=== PATIENT | female | born 1985 | race Caucasian/White ===

== ENCOUNTER 2023-09-23 07:35 | Emergency (ER) | payer OTHER, SELFPAY ==
[2023-09-23 07:42] VITALS: BP 142/75; PULSE 78; RESP 18; TEMP 37.2; O2SAT 98
--- NOTE | 2023-09-23 07:50 | ED_ITS ---
HPI - General Adult General Chief complaint: Skin/Abscess/Foreign Body Stated complaint: THROAT PAIN Time Seen by Provider: 09/23/23 07:42 Source: patient Mode of arrival: walk-in Limitations: no limitations History of Present Illness HPI narrative: Patient has esophageal narrowing due to GERD. Last night she ate lettuce and immediately felt as if it was stuck in her esophagus - around mid chest. This occurred around 6pm and she went to [facility] ED last night. She received a GI cocktail but didn't feel any different. She continued to have the sensation throughout the might and into this morning. She has not had anything else to eat or drink since the GI cocktail. She came to our ED devaughn evaluated. Related Data Allergies Allergy/AdvReac Type Severity Reaction Status Date / Time lamotrigine Allergy Unknown Verified 09/23/23 07:41 oxcarbazepine Allergy Unknown Verified 09/23/23 07:41 [From Trileptal] Exam Narrative Exam Narrative: Nurses notes and vital signs reviewed and patient is not hypoxic. afebrile General: Well-appearing and in no apparent distress. Skin: Warm, dry, no pallor noted. Neck: Supple, non-tender. Eye: Pupils are equal, round and EOMI. No scleral icterus. Ears, Nose, Mouth, and Throat: Oral mucosa is moist. Airway patient. Clear visualization of the tonsillar pillars and posterior pharynx - no foreign material noted. Normal swallowing mechanics. Cardiovascular: Regular Rate and Rhythm without murmur, gallop or rub. Respiratory: No accessory muscle use or respiratory distress. Lungs are clear to auscultation, no wheezing, rales or rhonchi Neurological: A&O x4. No cranial nerve dysfunction observed. No truncal ataxia. Moves all extremities. Sensation intact. Psychiatric: Cooperative and interactive. Normal mood and affect. Constitutional Vital Signs, click to edit/add: Last Vital Signs Temp 98.9 F 09/23/23 07:42 Pulse 78 09/23/23 07:42 Resp 18 09/23/23 07:42 BP 142/75 H 09/23/23 07:42 Pulse Ox 98 09/23/23 07:42 O2 Del Method Room Air 09/23/23 07:42 Course Vital Signs Vital signs: Vital Signs Temperature 98.9 F 09/23/23 07:42 Pulse Rate 78 09/23/23 07:42 Respiratory Rate 18 09/23/23 07:42 Blood Pressure 142/75 H 09/23/23 07:42 Pulse Oximetry 98 09/23/23 07:42 Oxygen Delivery Method Room Air 09/23/23 07:42 Temperature 98.9 F 09/23/23 07:42 Pulse Rate 78 09/23/23 07:42 Respiratory Rate 18 09/23/23 07:42 Blood Pressure 142/75 H 09/23/23 07:42 Pulse Oximetry 98 09/23/23 07:42 Oxygen Delivery Method Room Air 09/23/23 07:42 Medical Decision Making MDM Narrative Medical decision making narrative: Patient has achalasia. She has the sensation of esophageal foreign body after eating her first bite of salad. She is controlling her secretions, airway is patent and no foreign matter in the posterior pharynx. She already had a GI cocktail last night without any change in sensation. She was given reassurance that the lettuce will be broken down by the body's natural secretions in the esophagus. She was instructed to eat and drink as she normally does as that will help to move the lettuce through the esophagus. She was discharged home. Discharge Plan Discharge Stand Alone Forms: Portal Instructions Chief Complaint: Skin/Abscess/Foreign Body Clinical Impression: Dysphagia Patient Disposition: Home, Self-Care Time of Disposition Decision: 07:55 Print Language: French Instructions: Dysphagia (ED)
== END 2023-09-23 08:00 | disposition home or self-care (01) ==
LOC: ER 08:03
PROVIDERS: Emergency Provider Emergency Medicine; PCP Family Medicine
DX: R13.10 Dysphagia, unspecified (principal)
CPT/HCPCS: 99281

== ENCOUNTER 2024-04-17 19:00 | Emergency (ER) | payer OTHER, SELFPAY ==
[2024-04-17 19:08] VITALS: BP 132/92; PULSE 82; TEMP 36.8; O2SAT 97; BMI 31.1
[2024-04-17 20:00] LABS: Bilirubin Urine SMALL (NEGATIVE); Blood Urine NEGATIVE (NEGATIVE); Clarity Urine CLEAR (CLEAR); Color Urine YELLOW (YELLOW); Glucose Urine UA NEGATIVE (NEGATIVE); Ketones Urine 40 mg/dL (NEGATIVE); Leukocyte Esterase Urine NEGATIVE (NEGATIVE); Nitrite Urine NEGATIVE (NEGATIVE); Protein Urine NEGATIVE (NEG/TRACE); pH Urine 6.5 (5.0-9.0)
[2024-04-17 20:03] LABS: HCG Qualitative Urine* NEGATIVE (NEGATIVE); Internal Control Within Normal Limits; Urine Microscopic Indicated NO
--- NOTE | 2024-04-17 20:44 | CT_ITS ---
[address] [address] Patient Name: TRAN PACE MRN: [id number] date: 1985 Sex: F Assigned Patient Location: ER Current Patient Location: ER Accession/Order Number: [id number] Exam Date: 04/17/2024 21:01 Report Date: 04/17/2024 22:11 At the request of: YOUNG YOON Procedure: CT abdomen pelvis wo con EXAMINATION:CT abdomen pelvis wo con INDICATION:Low abd pain, right flank pain COMPARISON:None TECHNIQUE:Multiple thin section transaxial slices were acquired through the abdomen and pelvis without intravenous contrast. Coronal and sagittal reconstructed images were reviewed. Oral contrastWas not administered. FINDINGS: LOWER CHEST: There is a small to moderate hiatal hernia. LIVER: The liver is unremarkable. GALLBLADDER AND BILIARY SYSTEM: No obvious ductal dilation. No calcified stones. SPLEEN: The spleen is unremarkable. PANCREAS: The pancreas is unremarkable. ADRENAL GLANDS: The adrenal glands are unremarkable. KIDNEYS AND URETERS: There is no hydronephrosis of the kidneys.There are no definitive obstructing urologic calcifications in the ureters. Nonobstructive bilateral intrarenal calculi are present. VASCULATURE: Vascularity is unremarkable. PERITONEUM/RETROPERITONEUM: There is a trace amount of free fluid in the pelvis. LYMPH NODES: No suspicious lymphadenopathy. 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 The cecum and appendix are present in the left lower quadrant anteriorly. The appendix is not inflamed. No acute inflammatory process is associated with the bowel.There is no bowel obstruction. BLADDER: The urinary bladder is unremarkable. REPRODUCTIVE SYSTEM: Reproductive system is unremarkable. BODY WALL: There is a small fat-containing umbilical hernia. 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 CT/CT abdomen pelvis wo con IMPRESSION: 1. No acute inflammatory process or obstructive uropathy. There are nonobstructive bilateral intrarenal calculi. 2. 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 3. Small to moderate hiatal hernia. Electronically authenticated by: ANABELLA TILLMAN Date: 04/17/2024 22:11
--- NOTE | 2024-04-17 20:45 | ED_ITS ---
Documented by User: Rosalie Eboni 04/17/24 21:53 HPI HPI - General Adult General Chief complaint: Urogenital-Female Stated complaint: BLEEDING W/ URINATION Time Seen by Provider: 04/17/24 19:45 History of Present Illness HPI narrative: 38 year old female presents to the ED for suprapubic, right abdomen/flank pain. Onset was last night. Reports three episodes of hematuria. Denies fever, chills, N/V/D, dysuria. She has had cough, sinus congestion/drainage; states she is not here for that today. Related Data Allergies Allergy/AdvReac Type Severity Reaction Status Date / Time lamotrigine Allergy Unknown Unknown Verified 04/17/24 19:11 oxcarbazepine (From Allergy Unknown Unknown Verified 04/17/24 19:11 Trileptal) Opioid HPI Opioid Management Most Recent Opioid Data: No Data to Display Review of Systems ROS Constitutional Denies: fever or chills Cardiovascular Denies: chest pain Respiratory Denies: shortness of breath Gastrointestinal Reports: abdominal pain; Denies: nausea, vomiting or diarrhea Genitourinary Reports: blood in urine; Denies: painful urination, urinary frequency or urinary urgency Musculoskeletal Reports: back pain; Denies: neck pain Integumentary/Breast Denies: rash Neurological Denies: headache Exam Constitutional Vital Signs, click to edit/add: Last Vital Signs Temp 98.2 F 04/17/24 19:08 Pulse 82 04/17/24 19:08 Resp 18 04/17/24 19:08 BP 132/92 H 04/17/24 19:08 Pulse Ox 97 04/17/24 19:08 O2 Del Method Room Air 04/17/24 19:08 Common normals: no apparent distress and oriented x3 General appearance: cooperative Eye Common normals: conjunctivae normal and no scleral icterus Neck & C-Spine Common normals: supple Chest Chest: symmetrical chest wall rise Respiratory Common normals: normal respiratory effort Cardio Common normals: regular rate and regular rhythm GI Common normals: Normal to inspection, nondistended, normoactive bowel sounds present and soft to palpation Palpation: tender Details: suprapubic Back & Pelvis Common normals: no CVA tenderness Neuro Common normals: oriented x3 Sensorium/orientation: awake and alert Speech: speech normal Course Vital Signs Vital signs: Vital Signs Temperature 98.2 F 10/14/24 19:08 Pulse Rate 82 04/17/24 19:08 Respiratory Rate 18 04/17/24 19:08 Blood Pressure 132/92 H 04/17/24 19:08 Pulse Oximetry 97 04/17/24 19:08 Oxygen Delivery Method Room Air 04/17/24 19:08 Temperature 98.2 F 04/17/24 19:08 Pulse Rate 82 04/17/24 19:08 Respiratory Rate 18 04/17/24 19:08 Blood Pressure 132/92 H 04/17/24 19:08 Pulse Oximetry 97 04/17/24 19:08 Oxygen Delivery Method Room Air 04/17/24 19:08 Medical Decision Making MDM Narrative Medical decision making narrative: Urinalysis was negative for blood, infection. CT scan and BMP were pending. Care was resumed to Dr. Pickett. See his dictation for further evaluation and emerald atment. Medical Records Medical records reviewed: Yes I reviewed the patient's medical records Lab Data Lab results reviewed: Yes I reviewed the patient's lab results Labs: Lab Results 04/17/24 04/17/24 Range/Units 19:55 21:00 WBC 7.3 (4.0-11.0) 10^3/uL RBC 4.47 (4.20-5.40) 10^6/uL Hgb 14.4 (12.0-16.0) g/dL Hct 42.6 (36.0-48.0) % MCV 95.3 (81.0-99.0) fL MCH 32.2 (26.7-34.0) pg MCHC 33.8 (29.9-35.2) g/dL RDW 11.8 (11.0-15.0) % Plt Count 259 (150-450) 10^3/uL MPV 10.5 (9.5-13.5) fL Neut % (Auto) 75.3 H (43.0-75.0) % Lymph % (Auto) 13.3 L (20.5-60.0) % [place] % (Auto) 9.3 (1.7-12.0) % Eos % (Auto) 1.5 (0.9-7.0) % Baso % (Auto) 0.3 (0.2-2.0) % Neut # (Auto) 5.5 (1.4-6.5) 10^3/uL Lymph # (Auto) 1.0 L (1.2-3.8) 10^3/uL [place] # (Auto) 0.7 (0.3-0.8) 10^3/uL Eos # (Auto) 0.1 (0.0-0.7) 10^3/uL Baso # (Auto) 0.0 (0.0-0.1) 10^3/uL Abs Immat Gran (auto) 0.02 (0.00-0.03) 10^3/uL Imm/Tot Granulo (auto) 0.3 (0.0-0.5) % Sodium 141 (136-145) mmol/L Potassium 3.7 (3.5-5.1) mmol/L Chloride 104 (98-107) mmol/L Carbon Dioxide 27.6 (21.0-32.0) mmol/L Anion Gap 13.1 BUN 5.0 L (7.0-18.0) mg/dL Creatinine 1.10 H (0.55-1.02) mg/dL Est GFR ( Amer) >60 (>=60 mL/min/1.73m^2) Est GFR (Non-Af Amer) 56 L (>=60 mL/min/1.73m^2) BUN/Creatinine Ratio 4.5 Glucose 89 (74-106) mg/dL Calcium 9.6 (8.5-10.1) mg/dL Total Bilirubin 0.5 (0.2-1.0) mg/dL AST 15 (15-37) U/L ALT 17 (14-59) U/L Alkaline Phosphatase 81 (46-116) U/L Total Protein 7.7 (6.4-8.2) g/dL Albumin 3.7 (3.4-5.0) g/dL Globulin 4.0 g/dL Albumin/Globulin Ratio 0.9 Urine Color Yellow (YELLOW) Urine Clarity Clear (CLEAR) Urine pH 6.5 (5.0-9.0) Ur Specific [place] 1.020 (1.005-1.025) Urine Protein Negative (NEG/TRACE) mg/dL Urine Glucose (UA) Negative (NEGATIVE) mg/dL Urine Ketones 40 A (NEGATIVE) mg/dL Urine Occult Blood Negative (NEGATIVE) Urine Nitrite Negative (NEGATIVE) Urine Bilirubin Small A (NEGATIVE) Urine Urobilinogen 1.0 (0.2-1.0) EU/dL Ur Leukocyte Esterase Negative (NEGATIVE) Urine HCG, Qual Negative (NEGATIVE) Imaging Data CT scan - abdomen: Radiologist's impression: ITS Impressions Abdomen/Pelvis CT 04/17/24 20:44 IMPRESSION: 1. No acute inflammatory process or obstructive uropathy. There are nonobstructive bilateral intrarenal calculi. 2. 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 3. Small to moderate hiatal hernia. Electronically authenticated by: ANABELLA TILLMAN Date: 04/17/2024 22:11 Discharge Plan Discharge Chief Complaint: Urogenital-Female Clinical Impression: Abdominal pain, Hematuria Patient Disposition: Home, Self-Care Print Language: Faroese Instructions: Hematuria (ED) Additional Instructions: follow up with your family doctor this week for recheck Referrals: ANSON LYNN [Primary Care Provider] - 1 week Documented by User: Jonah Pickett MD 04/17/24 22:45 HPI HPI - General Adult General Chief complaint: Urogenital-Female Stated complaint: BLEEDING W/ URINATION Time Seen by Provider: 04/17/24 19:45 Related Data Allergies Allergy/AdvReac Type Severity Reaction Status Date / Time lamotrigine Allergy Unknown Unknown Verified 04/17/24 19:11 oxcarbazepine (From Allergy Unknown Unknown Verified 04/17/24 19:11 Trileptal) Opioid HPI Opioid Management Most Recent Opioid Data: No Data to Display Exam Constitutional Vital Signs, click to edit/add: Last Vital Signs Temp 98.2 F 04/17/24 19:08 Pulse 82 04/17/24 19:08 Resp 18 04/17/24 19:08 BP 132/92 H 04/17/24 19:08 Pulse Ox 97 04/17/24 19:08 O2 Del Method Room Air 04/17/24 19:08 Course Vital Signs Vital signs: Vital Signs Temperature 98.2 F 04/17/24 19:08 Pulse Rate 82 04/17/24 19:08 Respiratory Rate 18 04/17/24 19:08 Blood Pressure 132/92 H 04/17/24 19:08 Pulse Oximetry 97 04/17/24 19:08 Oxygen Delivery Method Room Air 04/17/24 19:08 Temperature 98.2 F 04/17/24 19:08 Pulse Rate 82 04/17/24 19:08 Respiratory Rate 18 04/17/24 19:08 Blood Pressure 132/92 H 04/17/24 19:08 Pulse Oximetry 97 04/17/24 19:08 Oxygen Delivery Method Room Air 04/17/24 19:08 Medical Decision Making MDM Narrative Medical decision making narrative: Urinalysis was negative for blood, infection. CT scan and BMP were pending. Care was resumed to Dr. Pickett. See his dictation for further evaluation and treatment. care transitioned at end of PA shift. Patient presented complaining of hematuria. Workup unremarkable . Neg CT and urine without hematuria. Patient discharged and advised to follow up with her doctor Lab Data Labs: Lab Results 04/17/24 04/17/24 Range/Units 19:55 21:00 WBC 7.3 (4.0-11.0) 10^3/uL RBC 4.47 (4.20-5.40) 10^6/uL Hgb 14.4 (12.0-16.0) g/dL Hct 42.6 (36.0-48.0) % MCV 95.3 (81.0-99.0) fL MCH 32.2 (26.7-34.0) pg MCHC 33.8 (29.9-35.2) g/dL RDW 11.8 (11.0-15.0) % Plt Count 259 (150-450) 10^3/uL MPV 10.5 (9.5-13.5) fL Neut % (Auto) 75.3 H (43.0-75.0) % Lymph % (Auto) 13.3 L (20.5-60.0) % [place] % (Auto) 9.3 (1.7-12.0) % Eos % (Auto) 1.5 (0.9-7.0) % Baso % (Auto) 0.3 (0.2-2.0) % Neut # (Auto) 5.5 (1.4-6.5) 10^3/uL Lymph # (Auto) 1.0 L (1.2-3.8) 10^3/uL [place] # (Auto) 0.7 (0.3-0.8) 10^3/uL Eos # (Auto) 0.1 (0.0-0.7) 10^3/uL Baso # (Auto) 0.0 (0.0-0.1) 10^3/uL Abs Immat Gran (auto) 0.02 (0.00-0.03) 10^3/uL Imm/Tot Granulo (auto) 0.3 (0.0-0.5) % Sodium 141 (136-145) mmol/L Potassium 3.7 (3.5-5.1) mmol/L Chloride 104 (98-107) mmol/L Carbon Dioxide 27.6 (21.0-32.0) mmol/L Anion Gap 13.1 BUN 5.0 L (7.0-18.0) mg/dL Creatinine 1.10 H (0.55-1.02) mg/dL Est GFR ( Amer) >60 (>=60 mL/min/1.73m^2) Est GFR (Non-Af Amer) 56 L (>=60 mL/min/1.73m^2) BUN/Creatinine Ratio 4.5 Glucose 89 (74-106) mg/dL Calcium 9.6 (8.5-10.1) mg/dL Total Bilirubin 0.5 (0.2-1.0) mg/dL AST 15 (15-37) U/L ALT 17 (14-59) U/L Alkaline Phosphatase 81 (46-116) U/L Total Protein 7.7 (6.4-8.2) g/dL Albumin 3.7 (3.4-5.0) g/dL Globulin 4.0 g/dL Albumin/Globulin Ratio 0.9 Urine Color Yellow (YELLOW) Urine Clarity Clear (CLEAR) Urine pH 6.5 (5.0-9.0) Ur Specific [place] 1.020 (1.005-1.025) Urine Protein Negative (NEG/TRACE) mg/dL Urine Glucose (UA) Negative (NEGATIVE) mg/dL Urine Ketones 40 A (NEGATIVE) mg/dL Urine Occult Blood Negative (NEGATIVE) Urine Nitrite Negative (NEGATIVE) Urine Bilirubin Small A (NEGATIVE) Urine Urobilinogen 1.0 (0.2-1.0) EU/dL Ur Leukocyte Esterase Negative (NEGATIVE) Urine HCG, Qual Negative (NEGATIVE) Imaging Data CT scan - abdomen: Radiologist's impression: ITS Impressions Abdomen/Pelvis CT 04/17/24 20:44
[2024-04-17 21:05] LABS: Basophils Percent Auto 0.3 % (0.2-2.0); Eosinophils Absolute Auto 0.1 10^3/uL (0.0-0.7); Eosinophils Percent Auto 1.5 % (0.9-7.0); Hematocrit 42.6 % (36.0-48.0); Hemoglobin 14.4 g/dL (12.0-16.0); Immature Granulocytes Abs Auto 0.02 10^3/uL (0.00-0.03); Immature Granulocytes Pct Auto 0.3 % (0.0-0.5); Lymphocytes Percent Auto 13.3 % (20.5-60.0); Mean Corpuscular HGB Conc 33.8 g/dL (29.9-35.2); Mean Corpuscular Hemoglobin 32.2 pg (26.7-34.0); Mean Corpuscular Volume 95.3 fL (81.0-99.0); Mean Platelet Volume 10.5 fL (9.5-13.5); Monocytes Absolute Auto 0.7 10^3/uL (0.3-0.8); Monocytes Percent Auto 9.3 % (1.7-12.0); Neutrophils Absolute Auto 5.5 10^3/uL (1.4-6.5); Neutrophils Percent Auto 75.3 % (43.0-75.0); Platelet Count 259 10^3/uL (150-450); Red Blood Count 4.47 10^6/uL (4.20-5.40); Red Cell Distribution Width 11.8 % (11.0-15.0); White Blood Count 7.3 10^3/uL (4.0-11.0)
[2024-04-17] MEDS: 0.9 % SODIUM CHLORIDE 1,000 ML 1000 ML IV (21:07)
[2024-04-17 21:22] LABS: Alanine Aminotransferase 17 U/L (14-59); Albumin Globulin Ratio 0.9; Albumin Level 3.7 g/dL (3.4-5.0); Alkaline Phosphatase 81 U/L (46-116); Anion Gap 13.1; Aspartate Amino Transferase 15 U/L (15-37); BUN Creatinine Ratio 4.5; Bilirubin Total 0.5 mg/dL (0.2-1.0); Calcium 9.6 mg/dL (8.5-10.1); Carbon Dioxide 27.6 mmol/L (21.0-32.0); Chloride 104 mmol/L (98-107); Estimated GFR (African America >60 (>=60 mL/min/1.73m^2); Estimated GFR (Non-African Ame 56 (>=60 mL/min/1.73m^2); Glucose 89 mg/dL (74-106); Potassium 3.7 mmol/L (3.5-5.1); Sodium 141 mmol/L (136-145); Total Protein 7.7 g/dL (6.4-8.2)
== END 2024-04-17 22:49 | disposition home or self-care (01) ==
PROVIDERS: Nurse Practitioner Family; Emergency Provider Internal Medicine; PCP Family Medicine
DX: R10.9 Unspecified abdominal pain (principal); R31.9 Hematuria, unspecified
CPT/HCPCS: 36415; 74176; 80053; 81003; 84703; 85025; 99285

== ENCOUNTER 2024-09-05 11:09 | Emergency (ER) | payer OTHER, SELFPAY ==
--- OUTSIDE RECORDS SUMMARY | 2024-09-05 11:20 | XMS_ITS | CCD ---
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 Name Role Phone PHYSICIAN, DEFAULT Unavailable Unavailable PHYSICIAN, DEFAULT Unavailable Unavailable TREMAINE MULLER Unavailable Unavailable PAL, CHAYANIKA Unavailable Unavailable PAL, CHAYANIKA Unavailable Unavailable PAL, CHAYANIKA Unavailable Unavailable PAL, CHAYANIKA Unavailable Unavailable SPENCER VELASQUEZ Admitting Unavailable SPENCER VELASQUEZ Attending Unavailable REQUEST, NONE LISTED Primary Care Unavailable SPENCER VELAQSUEZ Consulting Unavailable PABLITO PATEL Consulting Unavailable GEOVANY BAGLEY Consulting Unavailable GEOVANY BAGLEY Admitting Unavailable GEOVANY BAGLEY Attending Unavailable [facility] Primary Care Unava ilable Arturo Figueroa Unavailable MD Richard Lopez Attending Provider DO Philly Calderon Primary Care Provider Richard Lopez Admitting Unavailable Richard Lopez Attending Unavailable Philly Calderon Primary Care Unavailable ANDERSON RICHMOND Attending Unavailable ANSON DOMÍNGUEZ Referring Unavailable ANSON DOMÍNGUEZ Primary Care Unavailable VU, DONYA-IVON Referring Unavailable DEFANSON GILMORE Primary Care Unavailable VU, DONYA-IVON Attending Unavailable ANSON DOMÍNGUEZ Referring Unavailable ANSON DOMÍNGUEZ Primary Care Unavailable Anson Domínguez MD Primary Care Provider [phone] Anson Domínguez MD Primary Care Provider [phone] ANSON DOMÍNGUEZ Attending Unavailable ANSON DOMÍNGUEZ Referring Unavailable ANSON DOMÍNGUEZ Primary Care Unavailable ANSON DOMÍNGUEZ Attending Unavailable ANSON DOMÍNGUEZ Referring Unavailable ANSON DOMÍNGUEZ Primary Care Unavailable ANSON DOMÍNGUEZ Attending Unavailable DEFRANCE, ANSON T Referring Unavailable DEFRANCE, ANSON T Primary Care Unavailable DEFRANCE, ANSON T Attending Unavailable DEFRANCE, ANSON T Referring Unavailable DEFRANCE, ANSON T Primary Care Unavailable DEFRANCE, ANSON T Attending Unavailable DEFRANCE, ANSON T Referring Unavailable DEFRANCE, ANSON T Primary Care Unavailable DEFRANCE, ANSON T Attending Unavailable DEFRANCE, ANSON T Referring Unavailable DEFRANCE, ANSON T Primary Care Unavailable ELSA RANDLEIVON Attending Unavailable PHILYL CALDERON Referring Unavailable DEFRANCE, ANSON T Primary Care Unavailable MERCY WEISS Attending Unavailable DEFRANCE, ANSON T Referring Unavailable DEFRANCE, ANSON T Primary Care Unavailable DEFRANCE, ANSON T Attending Unavailable DEFRANCE, ANSON T Referring Unavailable DEFRANCE, ANSON T Primary Care Unavailable ANNA FALCON Attending Unavailable DEFRANCE, ANSON T Referring Unavailable DEFRANCE, ANSON T Primary Care Unavailable LAURENDOREEN Attending Unavailable RUSHER, LAURIE Murcia Attending Unavailable DEFRANCE, ANSON T Referring Unavailable RUSHER, LAURIE Murcia Attending Unavailable RUSHER, LAURIE Murcia Attending Unavailable LAKESHA ABERNATHY Attending Unavailable JUAN MIGUEL ACOSTA Attending Unavailable LAKESHA ABERNATHY Referring Unavailable MICHELALAKESHA Referring Unavailable COYMIROSALIE Murcia Attending Unavailable RIRI ACEVEDO Attending Unavailable ACEVEDO, RIRI Attending Unavailable FRANCISCO J PORTILLO Attending Unavailable ACEVEDORIRI ARREAGA Referring Unavailable RAFFAELE AGUERO Attending Unavailable RAFFAELE AGUERO Referring Unavailable DEFRANCE, ANSON T Primary Care Unavailable DEFRANCE, ANSON T Primary Care Unavailable MADISON VEE Attending Unavailable VEE, MADISON Attending Unavailable VEEMADISON Referring Unavailable DEFRANCE, ANSON T Primary Care Unavailable DEFRANCE, ANSON T Primary Care Unavailable DEFRANCE, ANSON T Referring Unavailable DEFRANCE, ANSON T Primary Care Unavailable DEFRANCE, ANSON T Primary Care Unavailable JORGE L HURD Attending Unavailable JORGE L HURD Attending Unavailable JORGE L HURD Referring Unavailable DEFRANCE, ANSON T Primary Care Unavailable DEFRANCE, ANSON T Primary Care Unavailable JUAN MIGUEL JONES Attending UnavailDERRICK Berg Attending Unavailable DEFRANCE, ANSON T Primary Care Unavailable RAFFAELE AGUERO Referring Unavailable DEFRANCE, ANSON T Primary Care Unavailable DEFRANCE, ANSON T Primary Care Unavailable ANDERSON RICHMOND Referring Unavailable DEFRANCE, ANSON T Primary Care Unavailable ACEVEDORIRI ARREAGA Referring Unavailable DEFRANCE, ANSON T Primary Care Unavailable DEFRANCEANSON Referring Unavailable DEFRANCEANSON Primary Care Unavailable RAFFAELE AGUERO Referring Unavailable DEFRANCEANSON Primary Care Unavailable DEFRANCEANSON Primary Care Unavailable ADAM OLVERA Attending Unavailable DEFRANCEANSON Primary Care Unavailable Allergies Allergy Classification Reported Allergen(s) Allergy Type Date of Onset Reaction(s) Facility (7 sources) lamoTRIgine; Translations: [LAMOTRIGINE] Drug Allergy 1 Unknown, [facility] (7 sources) OXcarbazepine; Translations: [OXCARBAZEPINE] Drug Allergy 1 Unknown, [facility] (1 source) lamoTRIgine Drug Allergy 3 [facility] (1 source) OXcarbazepine Drug Allergy 3 [facility] (15 sources) Lamotrigine Propensity to adverse reactions 4 Rash [facility] (15 sources) Oxcarbazepine Propensity to adverse reactions 4 Rash [facility] (12 sources) Amitriptyline; Translations: [AMITRIPTYLINE] Drug Allergy 4 [facility] Medications Current Medications Medication Drug Class(es) Dates Sig (Normalized) Sig (Original) acyclovir 400 mg oral tablet (18 sources) Herpesvirus Nucleoside Analog DNA Polymerase Inhibitor, Herpes Simplex Virus Nucleoside Analog DNA Polymerase Inhibitor, Herpes Zoster Virus Nucleoside Analog DNA Polymerase Inhibitor Start: 10-28-2023 take 1 tablet by mouth in the morning acyclovir (Zovirax) 400 MG tablet Take 400 mg by mouth in the morning and 400 mg before bedtime. 10/28/2023 Active Start: 04-19-2023 take 400 mg by mouth once leigha y Acyclovir Active 400 MG PO Daily April 19, 2023 12:00am take 1 tablet by phylicia th every twelve hours Acyclovir 400 MG 1 tablet Orally Twice a day Active [id number] 200 actuat albuterol 0.09 mg/actuat metered dose inhaler (15 sources) beta2-Adrenergic Agonist Start: 10-28-2023 take 1 puff(s) by inhalation three times daily as needed for wheezing albuterol HFA 90 mcg/act inhaler Inhale 1 puff 3 (three) times a day as needed for wheezing or shortness of breath 10/28/2023 Active amitriptyline hydrochloride 10 mg oral tablet (4 sources) Tricyclic Antidepressant Start: 03-14-2024 End: 05-13-2024 take 1 tablet by mouth at bedtime amitriptyline (Elavil) 10 MG tablet Indications: Vestibular migraine (CMS/HCC) Take 1 tablet (10 mg) by mouth at bedtime 30 tablet 1 03/14/2024 03/22/2024 Discontinued (Side effects) busPIRone hydrochloride 10 mg oral tablet (17 sources) Start: 09-06-2023 take 1 tablet by mouth in the morning, then take 1 tablet by mouth at bedtime busPIRone (BUSPAR) 10 mg tablet Take 1 tablet (10 mg total) by mouth in the morning and 1 tablet (10 mg total) before bedtime. 09/06/2023 Active Start: 04-19-2023 take 7.5 mg by mouth once leigha y Buspirone Active 7.5 MG PO Daily April 19, 2023 12:00am calcium carbonate (Tums) 250 mg (nunam iqua 100 mg) chewable split tablet (15 sources) Start: 10-08-2023 calcium carbonate (Tums) 250 mg (nunam iqua 100 mg) chewable split tablet 10/08/2023 Active cholecalciferol 0.025 mg oral capsule (10 sources) Vitamin D Start: 05-01-2024 take 1 capsule by mouth once daily cholecalciferol (Vitamin D-3) 25 MCG (1000 UT) capsule Take 25 mcg by mouth Daily 05/01/2024 Active cholecalciferol, vitamin D3, 62.5 mcg (2,500 unit) tablet,chewable (1 source) Start: 06-06-2024 cholecalciferol, vitamin D3, 62.5 mcg (2,500 unit) tablet,chewable 2 chewables daily 60 tablet 11 06/06/2024 Active esomeprazole 40 mg delayed release oral capsule (1 source) Proton Pump Inhibitor Start: 04-19-2023 take 40 mg by mouth once daily Esomeprazole Magnesium Active 40 MG PO Daily April 19, 2023 12:00am ibuprofen 200 mg oral tablet (20 sources) Nonsteroidal Anti-inflammatory Drug take 200 mg by mouth every six hours as needed for headache ibuprofen 100 MG/5ML suspension Take 200 mg by mouth every 6 (six) hours if needed for headaches Active take 1 tablet by phylicia th twice daily as needed for pain ibuprofen 200 MG tablet Take 200 mg by mouth 2 (two) times a day as needed for mild pain, moderate pain or headaches Active IBUPROFEN ORAL T travis by mouth. Active levothyroxine sodium 0.025 mg oral tablet (12 sources) l-Thyroxine Start: 03-15-2024 End: 01-15-2025 take 1 tablet by mouth before mealtime levothyroxine (Synthroid, Levoxyl) 25 MCG tablet Indications: Subclinical hypothyroidism (CMS/HCC) Take 1 tablet (25 mcg) by mouth in the morning. Take before meals. 90 tablet 1 07/19/2024 01/15/2025 Active LORazepam 1 mg oral tablet (12 sources) Benzodiazepine Start: 03-22-2024 LORazepam (Ativan) 1 MG tablet Indications: Anxiety Take one tablet by mouth 30 to 60 minutes prior to MRI if needed for anxiety. 1 tablet 03/22/2024 Active naproxen 500 mg oral tablet (1 source) Nonsteroidal Anti-inflammatory Drug Start: 02-08-2024 take 1 tablet by mouth in the morning, then take 1 tablet by mouth at mealtime naproxen (NAPROSYN) 500 mg tablet Take 1 tablet (500 mg total) by mouth in the morning and 1 tablet (500 mg total) in the evening. Take with meals. 60 tablet 2 02/08/2024 Active ondansetron 4 mg disintegrating oral tablet (15 sources) Serotonin-3 Receptor Antagonist Start: 09-25-2023 take 1 tablet by mouth every eight hours as needed ondansetron ODT (Zofran-ODT) 4 MG disintegrating tablet Take 4 mg by mouth every 8 (eight) hours if needed 09/25/2023 Active prednisoLONE 3 mg/ml oral solution (10 sources) Corticosteroid Start: 04-21-2024 prednisoLONE (OrapRED) 15 MG/5ML solution 04/21/2024 Active topiramate 25 mg oral tablet (10 sources) Start: 05-10-2024 End: 06-23-2024 take 1 tablet by mouth at bedtime, then take 1 tablet by mouth twice daily topiramate (Topamax) 25 MG tablet Indications: Vestibular migraine (CMS/HCC) Take 1 tablet (25 mg) by mouth at bedtime for 14 days, THEN 1 tablet (25 mg) 2 (two) times a day. 74 tablet 05/10/2024 Active valACYclovir 1000 mg oral tablet (1 source) Herpesvirus Nucleoside Analog DNA Polymerase Inhibitor, Herpes Simplex Virus Nucleoside Analog DNA Polymerase Inhibitor, Herpes Zoster Virus Nucleoside Analog DNA Polymerase Inhibitor Start: 04-10-2024 take 1 tablet by mouth in the morning, then take 1 tablet by mouth at bedtime valACYclovir (VALTREX) 1000 mg tablet Take 1 tablet (1,000 mg total) by mouth in the morning and 1 tablet (1,000 mg total) before bedtime. 15 tablet 3 04/10/2024 Active vitamin b12 1 mg sublingual tablet (10 sources) Vitamin B12 Start: 05-10-2024 End: 09-07-2024 take 1 tablet under the tongue once daily Cyanocobalamin (Vitamin B-12) 1000 MCG sublingual tablet Indications: Cognitive impairment Place 1,000 mcg under the tongue Daily 30 tablet 3 05/10/2024 09/07/2024 Active Voquezna 20 MG tablet (15 sources) Start: 01-26-2024 take 1 tablet by mouth in the morning Voquezna 20 MG tablet Take 20 mg by mouth in the morning. 01/26/2024 Active VOQUEZNA 20 mg tablet (1 source) Start: 01-26-2024 take 1 tablet by mouth in the morning VOQUEZNA 20 mg tablet Indications: Gastroesophageal reflux disease without esophagitis Take 20 mg by mouth in the morning. 01/26/2024 Active Problems Active Problems Problem Classification Problem Date Documented Da te Episodic/Chronic Abdominal pain (4 sources) Pelvic and perineal pain; Translations: [PELVIC AND PERINEAL PAIN] Onset: 9 Administrative/social admission (2 sources) Patient encounter status; Translations: [Dietary counseling and surveillance] 07-19-2024 Episodic Anxiety disorders (5 sources) Posttraumatic stress disorder; Translations: [Post-traumatic stress disorder, unspecified] 05-23-2024 Chronic Asthma (20 sources) Mild intermittent asthma; Translations: [Mild intermittent asthma, uncomplicated] Onset: 8 Resolved: 4 12-22-2023 Chronic Attention-deficit, conduct, and disruptive behavior disorders (2 sources) Attention deficit hyperactivity disorder, predominantly inattentive type; Translations: [Attention-deficit hyperactivity disorder, predominantly inattentive type] 05-23-2024 Chronic Chronic obstructive pulmonary disease and bronchiectasis (1 source) Bronchitis, not specified as acute or chronic; Translations: [Bronchitis, not specified as acute or chronic] Onset: 5 Episodic Coagulation and hemorrhagic disorders (19 sources) Coagulation defect, unspecified; Translations: [Blood coagulation disorder] Onset: 8 12-22-2023 Chronic Esophageal disorders (20 sources) Gastroesophageal reflux disease; Translations: [Gastro-esophageal reflux disease without esophagitis] Onset: 4 Chronic Esophageal disorders (1 source) Esophageal disorders; Translations: [Gastro-esophageal reflux disease with esophagitis, without bleeding] Onset: 4 Essential hypertension (1 source) Hypertensive disorder Onset: 4 Chronic Headache; including migraine (19 sources) Migraine; Translations: [Migraine, unspecified, not intractable, without status migrainosus] Onset: 4 12-24-2023 Chronic Hemorrhoids (4 sources) Unspecified hemorrhoids; Translations: [Residual hemorrhoidal skin tags] Onset: 0 Episodic Malaise and fatigue (2 sources) Chronic fatigue, unspecified; Translations: [Chronic fatigue, unspecified] Onset: 4 Chronic Mood disorders (2 sources) Bipolar disorder; Translations: [Bipolar disorder, unspecified] 05-23-2024 Chronic Nutritional deficiencies (3 sources) Vitamin D deficiency; Translations: [Vitamin D deficiency, unspecified] Onset: 4 07-19-2024 Chronic Other female genital disorders (4 sources) Other specified noninflammatory disorders of vagina; Translations: [OTHER SPECIFIED NONINFLAMMATORY DISORDERS OF VAGINA] Onset: 8 Episodic Other gastrointestinal disorders (2 sources) Dysphagia; Translations: [Dysphagia, unspecified] Episodic Other gastrointestinal disorders (2 sources) Dysphagia, unspecified; Translations: [Dysphagia, unspecified] Onset: 3 Episodic Other infections; including parasitic (2 sources) Late effects of other and unspecified infectious and parasitic diseases; Translations: [COVID-19 long hauler] 05-23-2024 Chronic Other inflammatory condition of skin (1 source) Psoriasis Onset: 4 Chronic Other lower respiratory disease (1 source) Cough Onset: 5 Episodic Other nervous system disorders (8 sources) Impaired cognition; Translations: [Other symptoms and signs involving cognitive functions and awareness] 05-10-2024 Episodic Other nutritional; endocrine; and metabolic disorders (2 sources) Hypomagnesemia; Translations: [Hypomagnesemia] Onset: 4 Chronic Other skin disorders (2 sources) Mass of lower limb; Translations: [Localized swelling, mass and lump, left lower limb] 06-26-2024 Episodic Other skin disorders (1 source) Localized swelling, mass and lump, left lower limb; Translations: [Localized swelling, mass and lump, left lower limb] Onset: 4 Episodic Otitis media and related conditions (1 source) Bilateral mastoiditis; Translations: [Unspecified mastoiditis, bilateral] 07-26-2024 Episodic Substance-related disorders (1 source) Nicotine dependence, cigarettes, uncomplicated; Translations: [NICOTINE DEPEND CIGARETTES UNCOMP] Onset: 0 Chronic Thyroid disorders (4 sources) Subclinical hypothyroidism; Translations: [Other specified hypothyroidism] Onset: 4 07-19-2024 Chronic Unclassified (1 source) Results Onset: 4 Unclassified (1 source) Mass Onset: 4 Unclassified (1 source) Bleeding/Bruising Onset: 4 Unclassified (1 source) Annual Exam Onset: 4 Unclassified (1 source) bumps on lips Onset: 4 Unclassified (1 source) Mouth Lesions Onset: 4 Unclassified (1 source) Chronic migraine with aura, not intractable, with status migrainosus; Translations: [Chronic migraine with aura, not intractable, with status migrainosus] Onset: 4 Unclassified (2 sources) Generalized Body Aches Onset: 4 Unclassified (1 source) Coughing Up Blood Onset: 5 Unclassified (1 source) Acute cough; Translations: [Acute cough] Onset: 5 Unclassified (1 source) Wound Check Onset: 4 Unclassified (1 source) Foreign body sensation, throat; Translations: [Foreign body sensation, throat] Onset: 4 Unclassified (1 source) Emotional state finding Onset: 4 Unclassified (1 source) Earache Onset: 4 Unclassified (1 source) Foreign Body in Throat Onset: 4 Unclassified (1 source) Lettuce stuck in throat Onset: 4 Viral infection (15 sources) Genital herpes simplex; Translations: [Herpesviral infection of urogenital system, unspecified] Onset: 8 12-22-2023 Chronic Past or Other Problems Problem Classification Problem Date Documented Date Episodic/Chronic Abdominal hernia (15 sources) Hiatal hernia; Translations: [Diaphragmatic hernia without obstruction or gangrene] Onset: 12-22-2023 12-22-2023 Episodic Allergic reactions (1 source) Other specified dermatitis; Translations: [Other specified dermatitis] Onset: 12-10-2023 Episodic Calculus of urinary tract (1 source) Calculus of kidney; Translations: [CALCULUS OF KIDNEY] Onset: 02-14-2019 Episodic Conditions associated with dizziness or vertigo (20 sources) Vertigo of central origin; Translations: [Vertigo of central origin] Onset: 11-02-2023 12-24-2023 Episodic Diseases of mouth; excluding dental (20 sources) Other lesions of oral mucosa; Translations: [Glossitis] Onset: 08-04-2023 12-22-2023 Episodic Esophageal disorders (15 sources) Esophagitis; Translations: [Esophagitis] Onset: 12-22-2023 12-22-2023 Episodic Genitourinary symptoms and ill-defined conditions (1 source) Dysuria; Translations: [Dysuria] Onset: 08-27-2023 Episodic Headache; including migraine (1 source) Headache Onset: 09-25-2023 Episodic Inflammatory diseases of female pelvic organs (15 sources) Bacterial vaginosis; Translations: [Acute vaginitis] Onset: 12-28-2017 Resolved: 12-22-2023 12-22-2023 Episodic Mood disorders (1 source) Mood disorders Onset: 02-08-2024 02-08-2024 Open wounds of extremities (1 source) Laceration without foreign body of left index finger without damage to nail, initial encounter; Translations: [Laceration without foreign body of left index finger without damage to nail, initial encounter] Onset: 11-26-2023 Episodic Other connective tissue disease (1 source) Myalgia, unspecified site; Translations: [Myalgia, unspecified site] Onset: 08-27-2023 Episodic Other connective tissue disease (1 source) Pain in left leg; Translations: [Pain in left leg] Onset: 02-01-2024 Episodic Other connective tissue disease (1 source) Pain in lower limb Onset: 02-01-2024 Episodic Other ear and sense organ disorders (1 source) Otalgia, right ear; Translations: [Otalgia, right ear] Onset: 10-31-2023 Episodic Other female genital disorders (1 source) Recurrent loss; Translations: [Recurrent loss] Onset: 04-01-2024 Episodic Other injuries and conditions due to external causes (1 source) Laceration - injury Onset: 11-26-2023 Episodic Other nervous system disorders (15 sources) Impairment of balance; Translations: [Other abnormalities of gait and mobility] Onset: 12-20-2023 12-20-2023 Episodic Other nervous system disorders (2 sources) Numbness; Translations: [Anesthesia of skin] 03-14-2024 Episodic Other nervous system disorders (1 source) Anesthesia of skin; Translations: [Anesthesia of skin] Onset: 04-10-2024 Episodic Other nervous system disorders (1 source) Other symptoms and signs involving cognitive functions and awareness; Translations: [Other symptoms and signs involving cognitive functions and awareness] Onset: 03-20-2024 Episodic Other upper respiratory disease (2 sources) Other diseases of pharynx; Translations: [Other diseases of pharynx] Onset: 08-16-2023 Episodic Other upper respiratory infections (15 sources) Acute sinusitis; Translations: [Acute sinusitis, unspecified] Onset: 11-24-2017 Resolved: 12-22-2023 12-22-2023 Episodic Residual codes; unclassified (15 sources) Tobacco user; Translations: [Tobacco use] Onset: 11-24-2017 12-22-2023 Episodic Residual codes; unclassified (1 source) Clouded consciousness Onset: 11-02-2023 Episodic Spondylosis; intervertebral disc disorders; other back problems (15 sources) Neck pain; Translations: [Cervicalgia] Onset: 12-20-2023 12-20-2023 Episodic Sprains and strains (1 source) Strain of adductor muscle, fascia and tendon of left thigh, subsequent encounter; Translations: [Strain of adductor muscle, fascia and tendon of left thigh, subsequent encounter] Onset: 02-08-2024 Episodic Unclassified (1 source) Onset: 08-27-2023 08-27-2023 Urinary tract infections (1 source) Urinary tract infectious disease Onset: 08-27-2023 Episodic Viral infection (2 sources) Plantar wart; Translations: [Viral infection, unspecified] Onset: 09-10-2023 Episodic Results Test Name Value Interpretation Reference Range Facility RESP [id number] 08-21-2024 Respiratory pathogens DNA and RNA panel LELA+non-probe (Nph) SPECIMEN SOURCE NASO PHARYNX ADENOVIRUS Not detected (qualifier value) CORONAVIRUS 229E Not detected (qualifier value) CORONAVIRUS HKU1 Not detected (qualifier value) CORONAVIRUS NL63 Not detected (qualifier value) CORONAVIRUS OC43 Not detected (qualifier value) HUMAN METAPNEUVIRUS Not detected (qualifier value) RHINO/ENTEROVIRUS Not detected (qualifier value) INFLUENZA A 2009 H1 Detected (qualifier value) INFLUENZA B Not detected (qualifier value) PARAINFLUENZA 1 Not detected (qualifier value) PARAINFLUENZA 2 Not detected (qualifier value) PARAINFLUENZA 3 Not detected (qualifier value) PARAINFLUENZA 4 Not detected (qualifier value) RESP SYNCYTIAL VIRUS Not detected (qualifier value) BORD PARAPERTUSSIS Not detected (qualifier value) BORDETELLA PERTUSSIS Not detected (qualifier value) CHLAM.PNEUMONIAE Not detected (qualifier value) MYCO. PNEUMONIAE Not detected (qualifier value) SARS CoV 2 Not detected (qualifier value) NOTE The [employer] Respiratory Panel 2.1 (RP2.1) is a multiplexed nucleic acid test intended for the simultaneous qualitative detection and differentiation of nucleic acid from multiple viral and bacterial respiratory organisms, including nucleic acid from Severe Acute Respiratory Syndrome Coronavirus 2 (SARS-CoV-2), in nasopharyngeal swabs obtained from individuals suspected of COVID-19 by their healthcare provider. Testing is limited to laboratories certified under the Clinical Laboratory Improvement Amendments of 1988 (CLIA), to perform high complexity or moderate complexity tests. SARS-CoV-2 RNA and nucleic acids from the other respiratory viral and bacterial organisms identified by this test are generally detectable in nasopharyngeal swabs during the acute phase of infection. The detection and identification of specific viral and bacterial nucleic acids from individuals exhibiting signs and/or symptoms of respiratory infection is indicative of the presence of the identified microorganism and aids in the diagnosis of respiratory infection if used in conjunction with other clinical and epidemiological information. Positive results are indicative of the presence of the identified organism, but do not rule out co-infection with other pathogens. The agent(s) detected by the [employer] RP2.1 may not be the definite cause of disease and clinical correlation with patient history and other diagnostic information is necessary to determine patient infection status. Negative results in the setting of a respiratory illness may be due to infection with pathogens not detected by this test, or lower respiratory tract infection that may not be detected by a nasopharyngeal specimen. Negative results do not preclude SARS-CoV-2 infection and should not be used as the sole basis for patient management decisions. Negative CASSI-CoV-2 results must be combined with clinical observations, patient history and epidemiological information. Negative results for other organisms identified by the test may require additional laboratory testing when evaluating a patient with possible respiratory tract infection. Normal [facility] [facility] Comment on above: Performed By: #### 8 2159-5 ####[facility] ([id number])[address] [place] [address] LAB ([id number])[address], [address] [place] [address]678 XR CHEST 1 VWon 08-21-2024 XR CHEST 1 VW XR CHEST 1 VW XR CHEST 1 VW HISTORY: Cough, hemoptysis COMPARISON: 02/17/2021 FINDINGS: AP upright film obtained. The cardiomediastinal silhouette is within normal limits. No pleural effusion or pneumothorax. No consolidation. Thoracic dextroscoliosis. IMPRESSION: * No radiographic evidence of acute cardiopulmonary process. Approved by Resident: Julio Mendez DO on 08/21/2024 5:02 AM Noe Delacruz MD have personally reviewed the image(s) and agree with and/or edited the report Finalized by Noe Cleveland MD on 08/21/2024 5:04 AM Normal [facility] FREE T3on 08-12-2024 Free T3 [Mass/Vol] 2.96 pg/mL Normal 2.50-3.90 [facility] Comment on above: Performed By: #### Danika ATKINSON, 36141-5, CBCA #### [facility] ([id number]) [address] [place] [address]19 THYROGLOBULIN ABon Thyroglobulin Ab Qn 4 [IU]/mL High <4.0 [facility] Comment on above: Performed By: #### Danika ATKINSON, 35270-4, CBCA #### [facility] ([id number]) [address] [place] [address] THYROID PROFILEon 08-12-2024 Free T4 [Mass/Vol] 0.68 ng/dL Normal 0.61-1.60 [facility] Comment on above: Performed By: #### Danika ATKINSON, 85852-3, CBCA #### [facility] ([id number]) [address] [place] [address]161 TSH 4.45 uIU/mL Normal 0.49-4.67 [facility] Comment on above: Performed By: #### Danika ATKINSON, 69518-4, CBCA #### [facility] ([id number]) [address] [place] [address] 00761 TSH receptor Ab Qn (S)on THYROTROPIN RECEPTOR AB SEE COMMENTS 08/14/2024 02:44 PM Normal [facility] Comment on above: Result Comment: NOTE Test Result Flag Unit RefValue - Thyrotropin Receptor Ab, S <1.10 IU/L 0.00 - 1.75 ADDITIONAL INFORMATION At a decision limit of 1.75 IU/L, this assay has 97% sensitivity and 99% specificity for detection of Graves' disease. In healthy individuals and in patients with thyroid disease without diagnosis of Graves' disease, the upper limit of anti-TSHR values are 1.22 IU/L and 1.58 IU/L, respectively (97.5th percentiles). Test Performed by: [facility] [address] [place] [address] Fax Machine Repairer: Nick Bettencourt Ph.D.; CLIA# [id number] Performed By: #### Danika ATKINSON, 87809-0, OPAL #### [facility] ([id number]) [address] [place] [address] 16612 Auditory function testson Bilateral Normal hearing [facility] Vitamin D+Metabolites [Mass/ Vol]on 06-05-2024 VITAMIN D 25 HYD TOT 24.2 ng/mL Low 30-100 [facility] Comment on above: Result Comment: Vitamin D status 25 [place] Vitamin D Deficiency <20 ng/mL Insufficiency 20-29 ng/mL Sufficiency 30-100 ng/mL Toxicity >100 ng/mL NOTE: A pediatric reference range has not been established by the drapery hand of this kit. The [place] [employer] recommends a Vitamin D level of = or >20ng/mL in infants and children. Performed By: #### Danika ATKINSON, 59232-5, CBCA #### [facility] ([id number]) [address] [place] [address] 53319 MR BRAIN W WO CONTon 024 MR BRAIN W WO CONT MR BRAIN W WO CONT EXAM:MR BRAIN W WO CONT INDICATION: Vertigo; Cognitive impairment; Numbness COMPARISON: CT head 09/25/2023 TECHNIQUE: Multiplanar multisequence pre and post contrast MR sequences through the head/brain. CONTRAST: 15 mL ProHance IV. BRAIN FINDINGS: Brain Parenchyma: No acute hemorrhage, cerebral edema, or acute infarction. No mass, mass effect, or midline shift. No cerebellar tonsillar ectopia. No evidence of intracranial hypertension or intracranial hypotension. Vertigo Ventricles and Sulci: Normal for age. Extra-Axial Spaces: No extra-axial fluid collection. Intracranial Flow-Voids: Arterial and venous sinus flow voids appear normal. No abnormal enhancement is seen. Orbits: Normal Paranasal Sinuses: Normal Mastoid Air Cells: Trace bilateral mastoid effusions. Cranium: Normal Extracranial Soft Tissues: Normal IMPRESSION: Bilateral mastoid air cell effusions. Middle ear cavities are suboptimally assessed. If there is concern for underlying temporal bone abnormality consider temporal bone CT. Otherwise normal MRI of the brain. Approved by Jayce Santizo DO on 04/10/2024 2:29 PM Juan Miguel Delacruz have personally reviewed the image(s) and agree with and/or edited the report Finalized by Juan Miguel uFlton on 04/10/2024 3:26 PM Normal [facility] BETA-2 GP1 AB PANELon 2023 BETA-2 GP1 IgA 5.3 u/mL Normal 0.0-19.9 [facility] Comment on above: Performed By: #### B DMEETRIO, 01893-7, CBCA #### [facility] ([id number]) [address] [place] [address] 28386 BETA-2 GP1 IgG <1.4 Normal 0.0-19.9 [facility] Comment on above: Performed By: #### B DEMETRIO, , CBCA #### [facility] ([id number]) [address] [place] [address] 77106 BETA-2 GP1 IgM <1.5 Normal 0.0-19.9 [facility] Comment on above: Performed By: #### B DEMETRIO, , CBCA #### [facility] ([id number]) [address] [place] [address] Protein S actual/normal Coag (PPP) [Relative time]on 04-01-2024 PROTEIN S ACTIVITY 80 % Normal 64-149 [facility] Comment on above: Result Comment: NEW TEST METHOD NEW REFERENCE RANGE EFFECTIVE 16 Performed By: #### Danika ATKINSON, 62831-6, CBCA #### [facility] ([id number]) [address] [place] [address] 52908 B. burgdorferi IgG+IgM Qn (S )on 03-20-2024 LYME TOTAL <0.2 Normal <0.9 [facility] Comment on above: Result Comment: Interpretation-------- <0.9 Negative 0.9 - 1.0 Equivocal >1.0 Positive No serological evidence of Borrelia infection.A non-reactive result does not exclude the possibility of Borrelia infection and cannot exclude early infection with B.burgdorferi. If Lyme borreliosis is suspected, a second sample should be collected and tested 2-4 weeks later. Performed By: #### Danika ATKINSON, , CBCA #### [facility] ([id number]) [address] [place] [address] 14871 Cobalamin (Vitamin B12) [Mas s/Vol]on 03-20-2024 [facility] FREE T3on 03-20-2024 Free T3 [Mass/Vol] 3.96 pg/mL High 2.50-3.90 [facility] Comment on above: Performed By: #### Danika ATKINSON, , CBCA #### [facility] ([id number]) [address] [place] [address] 15625 HIV 1+2 Ab+HIV1 p24 Ag IA Ql on 03-20-2024 HIV 1 and 2 Ab/Ag Screen Non-Reactive Normal NRCT [facility] Comment on above: Result Comment: This information has been disclosed to you from confidential records protected from disclosure by state law. You shall make no further disclosure of this information without the specific, written and informed release of the individual to whom it pertains, or as otherwise permitted by state law. A general authorization for the release of medical or other information is not sufficient for the purpose of the release of HIV test results or diagnoses. Performed By: #### B DEMETRIO, , CBCA #### [facility] ([id number]) [address] [place] [address] 27190 T. pallidum IgG+IgM IA Ql (S )on 03-20-2024 Syphilis Total <0.2 Normal 0.0-0.8 [facility] Comment on above: Result Comment: NON REACTIVE No serologic evidence of infection to Treponema pallidum (syphilis). Repeat testing may be considered in patients with suspected acute or primary syphilis in 2 to 4 weeks. Performed By: #### Danika ATKINSON, , CBCA #### [facility] ([id number]) [address] [place] [address] 97294 THYROID ANTIBODIESon 024 Thyroglobulin Ab Qn 4 [IU]/mL High <4.0 [facility] Comment on above: Performed By: #### Danika ATKINSON, , CBCA #### [facility] ([id number]) [address] [place] [address] 58286 TPO Ab Qn 655 [IU]/mL High <10 [facility] Comment on above: Performed By: #### Danika ATKINSON, , CBCA #### [facility] ([id number]) [address] [place] [address] 52248 THYROID PROFILEon 03-20-2024 Free T4 [Mass/Vol] 0.76 ng/dL Normal 0.61-1.60 [facility] Comment on above: Performed By: #### B DEMETRIO, , CBCA #### [facility] ([id number]) [address] [place] [address] TSH 3.12 uIU/mL Normal 0.49-4.67 [facility] Comment on above: Performed By: #### B DEMETRIO, , CBCA #### [facility] ([id number]) [address] [place] [address] VITAMIN B12on 03-20-2024 Cobalamin (Vitamin B12) [Mass/Vol] 187 pg/mL Normal 180-914 [facility] Comment on above: Performed By: #### B DEMETRIO, , CBCA #### [facility] ([id number]) [address] [place] [address] 65852 Vitamin B12on 03-20-2024 Cobalamin (Vitamin B12) [Mass/Vol] 187 pg/mL 180 - 914 pg/mL [facility] Comment on above: PERFORMED AT [facility] [address],[place] [address] Vitamin D+Metabolites [Mass/ Vol]on 03-20-2024 VITAMIN D 25 HYD TOT 24.0 ng/mL Low 30-100 [facility] Comment on above: Result Comment: Vitamin D status 25 [place] Vitamin D Deficiency <20 ng/mL Insufficiency 20-29 ng/mL Sufficiency 30-100 ng/mL Toxicity >100 ng/mL NOTE: A pediatric reference range has not been established by the drapery hand of this kit. The [place] [employer] recommends a Vitamin D level of = or >20ng/mL in infants and children. Performed By: #### B DEMETRIO, , CBCA #### [facility] ([id number]) [address] [place] [address] XR NECK SOFT TISSUEon 2023 XR NECK SOFT TISSUE XR NECK SOFT TISSUE XR NECK SOFT TISSUE HISTORY: Foreign body sensation after eating sausage, dysphagia. COMPARISON: None. FINDINGS: No radiopaque foreign body. Visible airway is patent without stenosis. Epiglottis is not thickened. Cervical spine without significant degenerative changes. IMPRESSION: * No radiographically evident foreign body. If clinically indicated further evaluation with endoscopy may be useful. Approved by Resident Genesis Tejada MD on 11/14/2023 1:37 PM I, Juan Miguel Engel MD have personally reviewed the image(s) and agree with and/or edited the report Finalized by Juan Miguel Engel MD on 11/14/2023 1:59 PM Normal [facility] CBC AND AUTO DIFFon 11-06-19 24 ABSOLUTE BASOPHIL 0.0 X10E9/L Normal 0.0-0.2 [facility] Comment on above: Performed By: #### C BCA, CMP, 78821-0, 54206-8, THYR, 2842-3 #### [facility] ([id number]) [address], [address] [place] [address] ABSOLUTE NEUTROPHIL 5.4 X10E9/L Normal 1.5-6.6 [facility] Comment on above: Performed By: #### C BCA, CMP, 79619-0, 23222-3, THYR, 2842-3 #### [facility] ([id number]) [address], [address] [place] [address] Basophils/100 WBC (Bld) 0.4 % Normal [facility] Comment on above: Performed By: #### C BCA, CMP, 75258-4, 89929-9, THYR, 2842-3 #### [facility] ([id number]) [address], [address] [place] [address] Eosinophils (Bld) [#/Vol] 0.2 10*3/uL Normal 0.0-0.4 [facility] Comment on above: Performed By: #### C BCA, CMP, 00437-8, , THYR, 2842-3 #### [facility] ([id number]) [address] [address] [place] [address] Eosinophils/100 WBC (Bld) 3.0 % Normal [facility] Comment on above: Performed By: #### C BCA, CMP, 51742-6, , THYR, 2842-3 #### [facility] ([id number]) [address] [address] [place] [address] Erythrocyte distribution width (RBC) [Ratio] 12.2 % Normal 11.5-15.0 [facility] Comment on above: Performed By: #### C BCA, CMP, , , THYR, 2842-3 #### [facility] ([id number]) [address] [address] [place] [address] Hematocrit (Bld) [Volume fraction] 41.7 % Normal 35-47 [facility] Comment on above: Performed By: #### C BCA, CMP, , , THYR, 2842-3 #### [facility] ([id number]) [address] [address] [place] [address] Hemoglobin (Bld) [Mass/Vol] 14.1 g/dL Normal 11.7-15.5 [facility] Comment on above: Performed By: #### C BCA, CMP, , , THYR, 2842-3 #### [facility] ([id number]) [address] [address] [place] [address] Lymphocytes (Bld) [#/Vol] 1.2 10*3/uL Normal 1.0-3.5 [facility] Comment on above: Performed By: #### C BCA, CMP, 48773-4, , THYR, 2842-3 #### [facility] ([id number]) [address], [address] [place] [address] Lymphocytes/100 WBC (Bld) 15.8 % Normal [facility] Comment on above: Performed By: #### C BCA, CMP, 92842-1, 22126-5, THYR, 2842-3 #### [facility] ([id number]) [address] [place] [address] MCH (RBC) [Entitic mass] 32.5 pg Normal 27-34 [facility] Comment on above: Performed By: #### C BCA, CMP, 62858-9, , THYR, 2842-3 #### [facility] ([id number]) [address], [address] [place] [address] MCHC (RBC) [Mass/Vol] 33.8 g/dL Normal 32-36 [facility] Comment on above: Performed By: #### C BCA, CMP, 41410-9, , THYR, 2842-3 #### [facility] ([id number]) [address], [address] [place] [address] MCV (RBC) [Entitic vol] 96 fL Normal 80-100 [facility] Comment on above: Performed By: #### C BCA, CMP, 71599-9, , THYR, 2842-3 #### [facility] ([id number]) [address], [address] [place] [address] Monocytes (Bld) [#/Vol] 0.6 10*3/uL Normal 0-0.9 [facility] Comment on above: Performed By: #### C BCA, CMP, 88076-0, , THYR, 2842-3 #### [facility] ([id number]) [address], [address] [place] [address] Monocytes/100 WBC (Bld) 7.8 % Normal [facility] Comment on above: Performed By: #### C BCA, CMP, 47779-3, 91938-5, THYR, 2842-3 #### [facility] ([id number]) [address], [address] [place] [address] Neutrophils/100 WBC (Bld) 73.0 % Normal [facility] Comment on above: Performed By: #### C BCA, CMP, 26606-0, 39327-2, THYR, 2842-3 #### [facility] ([id number]) [address], [address] [place] [address] Platelet mean volume (Bld) [Entitic vol] 9.9 fL Normal 7-12 [facility] Comment on above: Performed By: #### C BCA, CMP, 67112-9, 08624-2, THYR, 2842-3 #### [facility] ([id number]) [address], [address] [place] [address] Platelets (Bld) [#/Vol] 249 10*3/uL Normal 150-450 [facility] Comment on above: Performed By: #### C BCA, CMP, 75023-7, 09535-1, THYR, 2842-3 #### [facility] ([id number]) [address], [address] [place] [address] RBC COUNT 4.34 X10E12/L Normal 3.80-5.20 [facility] Comment on above: Performed By: #### C BCA, CMP, 95826-0, 88351-2, THYR, 2842-3 #### [facility] ([id number]) [address] [place] [address] WBC (Bld) [#/Vol] 7.4 10*3/uL Normal 4.0-11.0 [facility] Comment on above: Performed By: #### C BCA, CMP, 43719-3, 37577-2, THYR, 2842-3 #### [facility] ([id number]) [address] [place] [address] COMPREHENSIVE METABOLIC PANE Je 11-06-2023 Albumin [Mass/Vol] 4.2 g/dL Normal 3.2-5.3 [facility] Comment on above: Performed By: #### C BCA, CMP, 44009-9, 35033-5, THYR, 2842-3 #### [facility] ([id number]) [address] [place] [address] ALP [Catalytic activity/Vol] 70 U/L Normal 39-130 [facility] Comment on above: Performed By: #### C BCA, CMP, 23010-1, 63080-0, THYR, 2842-3 #### [facility] ([id number]) [address] [place] [address] ALT [Catalytic activity/Vol] 12 U/L Normal 0-31 [facility] Comment on above: Performed By: #### C BCA, CMP, 31891-1, 03088-9, THYR, 2842-3 #### [facility] ([id number]) [address] [place] [address] Anion gap [Moles/Vol] 12 mmol/L Normal 5-15 [facility] Comment on above: Performed By: #### C BCA, CMP, 77140-9, 43686-4, THYR, 2842-3 #### [facility] ([id number]) [address] [place] [address] AST [Catalytic activity/Vol] 14 U/L Normal 0-41 [facility] Comment on above: Performed By: #### C BCA, CMP, 33516-1, 33161-3, THYR, 2842-3 #### [facility] ([id number]) [address] [place] [address] Bilirubin [Mass/Vol] 0.5 mg/dL Normal 0.3-1.2 [facility] Comment on above: Performed By: #### C BCA, CMP, 63114-8, , THYR, 2842-3 #### [facility] ([id number]) [address], [facility] [address] [place] [address] Calcium [Mass/Vol] 9.3 mg/dL Normal 8.5-10.5 [facility] Comment on above: Performed By: #### C BCA, CMP, 41974-3, , THYR, 2842-3 #### [facility] ([id number]) [address], [facility] [address] [place] [address] Chloride [Moles/Vol] 104 mmol/L Normal 98-109 [facility] Comment on above: Performed By: #### C BCA, CMP, 90005-4, , THYR, 2842-3 #### [facility] ([id number]) [address] [address] [place] [address] CO2 [Moles/Vol] 27 mmol/L Normal 22-32 [facility] Comment on above: Performed By: #### C BCA, CMP, 76805-3, , THYR, 2842-3 #### [facility] ([id number]) [address] [place] [address] Creatinine [Mass/Vol] 0.90 mg/dL Normal 0.40-1.00 [facility] Comment on above: Result Comment: METH OD TRACEABLE TO IDMS STANDARD Performed By: #### C BCA, CMP, 45892-1, , THYR, 2842-3 #### [facility] ([id number]) [address], [address] [place] [address] GFR/1.73 sq M.predicted among non-blacks MDRD (S/P/Bld) [Vol rate/Area] 84 mL/min/{1.73_m2} Normal >59 [facility] Comment on above: Result Comment: Reported eGFR is based on the CKD-EPI 2020 equation that does not use a race coefficient. Performed By: #### C BCA, CMP, 15533-2, 00707-6, THYR, 2842-3 #### [facility] ([id number]) [address] [place] [address] Glucose [Mass/Vol] 91 mg/dL Normal 65-99 [facility] Comment on above: Performed By: #### C BCA, CMP, 79199-2, , THYR, 2842-3 #### [facility] ([id number]) [address], [address] [place] [address] Potassium [Moles/Vol] 4.3 mmol/L Normal 3.5-5.0 [facility] Comment on above: Performed By: #### C BCA, CMP, 76528-4, , THYR, 2842-3 #### [facility] ([id number]) [address] [place] [address] Protein [Mass/Vol] 7.3 g/dL Normal 6.0-8.0 [facility] Comment on above: Performed By: #### C BCA, CMP, 73320-4, , THYR, 2842-3 #### [facility] ([id number]) [address] [place] [address] Sodium [Moles/Vol] 143 mmol/L Normal 134-146 [facility] Comment on above: Performed By: #### C BCA, CMP, 31427-4, , THYR, 2842-3 #### [facility] ([id number]) [address] [place] [address] Urea nitrogen [Mass/Vol] 9 mg/dL Normal 5-23 [facility] Comment on above: Performed By: #### C BCA, CMP, 26922-7, 84916-1, THYR, 2842-3 #### [facility] ([id number]) [address] [place] [address] Lipid 1996 panelon 4 Cholesterol [Mass/Vol] 183 mg/dL Normal 150-200 [facility] Comment on above: Performed By: #### C BCA, CMP, 07165-0, , THYR, 2842-3 #### [facility] ([id number]) [address] [place] [address] Cholesterol in HDL [Mass/Vol] 34 mg/dL Low >39 [facility] Comment on above: Result Comment: HDL <40 mg/dL - High Risk HDL > or = 40mg/dL- Desirable HDL >60 mg/dL - Negative Risk Performed By: #### C BEAR, CMP, 60507-4, , THYR, 2842-3 #### [facility] ([id number]) [address] [place] [address] Cholesterol in LDL [Mass/Vol] 109 mg/dL Normal <130 [facility] Comment on above: Result Comment: LDL <100 mg/dL - Desirable LDL >160 mg/dL - High Risk Performed By: #### C BCA, CMP, 79182-8, , THYR, 2842-3 #### [facility] ([id number]) [address] [place] [address] Cholesterol in VLDL [Mass/Vol] 40 mg/dL High 0-30 [facility] Comment on above: Performed By: #### C BCA, CMP, 89077-1, 23286-3, THYR, 2842-3 #### [facility] ([id number]) [address] [place] [address] CHOLESTEROL:HDL 5.4 High 1.0-5.0 [facility] Comment on above: Performed By: #### C BCA, CMP, 84520-9, , THYR, 2842-3 #### [facility] ([id number]) [address] [place] [address] Triglyceride [Mass/Vol] 200 mg/dL High 27-150 [facility] Comment on above: Performed By: #### C BCA, CMP, 77178-9, , THYR, 2842-3 #### [facility] ([id number]) [address], [address] [place] [address] MAGNESIUMon 11-06-2023 Magnesium [Mass/Vol] 1.9 mg/dL Normal 1.8-2.6 [facility] Comment on above: Performed By: #### Danika ATKINSON, , CBCA #### [facility] ([id number]) [address] [place] [id number] Prolactin [Mass/Vol]on 11-05 PROLACTIN 14.3 ng/mL Normal 3.3-26.7 [facility] Comment on above: Performed By: #### Danika ATKINSON, , CBCA #### [facility] ([id number]) [address] [place] [address] THYROID PROFILEon 11-06-2023 Free T4 [Mass/Vol] 0.64 ng/dL Normal 0.61-1.60 [facility] Comment on above: Performed By: #### Danika ATKINSON, , CBCA #### [facility] ([id number]) [address] [place] [address] TSH 6.11 uIU/mL High 0.49-4.67 [facility] Comment on above: Performed By: #### B DEMETRIO, , CBCA #### [facility] ([id number]) [address] [place] [address] BASIC METABOLIC PANLon 09-24 Anion gap [Moles/Vol] 6 mmol/L Normal 5-15 [facility] Comment on above: Performed By: #### B DEMETRIO, , CBCA #### [facility] ([id number]) [address] [place] [address] 66474 Calcium [Mass/Vol] 8.6 mg/dL Normal 8.5-10.5 [facility] Comment on above: Performed By: #### B DEMETRIO, , CBCA #### [facility] ([id number]) [address] [place] [address] 54612 Chloride [Moles/Vol] 107 mmol/L Normal 98-109 [facility] Comment on above: Performed By: #### B DEMETRIO, , CBCA #### [facility] ([id number]) [address] [place] [address] 87114 CO2 [Moles/Vol] 23 mmol/L Normal 22-32 [facility] Comment on above: Performed By: #### B DEMETRIO, , CBCA #### [facility] ([id number]) [address] [place] [address] 10534 Creatinine [Mass/Vol] 0.89 mg/dL Normal 0.40-1.00 [facility] Comment on above: Result Comment: METH OD TRACEABLE TO IDMS STANDARD Performed By: #### B DEMETRIO, , CBCA #### [facility] ([id number]) [address] [place] [address] 93112 GFR/1.73 sq M.predicted among non-blacks MDRD (S/P/Bld) [Vol rate/Area] 86 mL/min/{1.73_m2} Normal >59 [facility] Comment on above: Result Comment: Reported eGFR is based on the CKD-EPI 2020 equation that does not use a race coefficient. Performed By: #### Danika ATKINSON, , CBCA #### [facility] ([id number]) [address] [place] [address] 55184 Glucose [Mass/Vol] 113 mg/dL High 65-99 [facility] Comment on above: Performed By: #### Danika ATKINSON, , CBCA #### [facility] ([id number]) [address] [place] [address] 74100 Potassium [Moles/Vol] 3.7 mmol/L Normal 3.5-5.0 [facility] Comment on above: Performed By: #### Danika ATKINSON, , CBCA #### [facility] ([id number]) [address] [place] [address] 05516 Sodium [Moles/Vol] 136 mmol/L Normal 134-146 [facility] Comment on above: Performed By: #### Danika ATKINSON, , CBCA #### [facility] ([id number]) [address] [place] [address] 68695 Urea nitrogen [Mass/Vol] 12 mg/dL Normal 5-23 [facility] Comment on above: Performed By: #### Danika ATKINSON, , CBCA #### [facility] ([id number]) [address] [place] [address] 24012 CBC AND AUTO DIFFon 09-24- 24 ABSOLUTE BASOPHIL 0.0 X10E9/L Normal 0.0-0.2 [facility] Comment on above: Performed By: #### Danika ATKINSON, , CBCA #### [facility] ([id number]) [address] [place] [address] 03760 ABSOLUTE NEUTROPHIL 5.3 X10E9/L Normal 1.5-6.6 [facility] Comment on above: Performed By: #### B DEMETRIO, , CBCA #### [facility] ([id number]) [address] [place] [address] 26461 Basophils/100 WBC (Bld) 0.1 % Normal [facility] Comment on above: Performed By: #### B DEMETRIO, , CBCA #### [facility] ([id number]) [address] [place] [address] 30263 Eosinophils (Bld) [#/Vol] 0.1 10*3/uL Normal 0.0-0.4 [facility] Comment on above: Performed By: #### B DEMETRIO, , CBCA #### [facility] ([id number]) [address] [place] [address] 07042 Eosinophils/100 WBC (Bld) 2.0 % Normal [facility] Comment on above: Performed By: #### B DEMETRIO, , CBCA #### [facility] ([id number]) [address] [place] [address] 90444 Erythrocyte distribution width (RBC) [Ratio] 12.1 % Normal 11.5-15.0 [facility] Comment on above: Performed By: #### B DEMETRIO, , CBCA #### [facility] ([id number]) [address] [place] [address] 42962 Hematocrit (Bld) [Volume fraction] 39.2 % Normal 35-47 [facility] Comment on above: Performed By: #### B DEMETRIO, , CBCA #### [facility] ([id number]) [address] [place] [address] 32210 Hemoglobin (Bld) [Mass/Vol] 13.7 g/dL Normal 11.7-15.5 [facility] Comment on above: Performed By: #### B DEMETRIO, , CBCA #### [facility] ([id number]) [address] [place] [address] 43714 Lymphocytes (Bld) [#/Vol] 0.2 10*3/uL Low 1.0-3.5 [facility] Comment on above: Performed By: #### Danika ATKINSON, , CBCA #### [facility] ([id number]) [address] [place] [address] 27786 Lymphocytes/100 WBC (Bld) 3.4 % Normal [facility] Comment on above: Performed By: #### Danika ATKINSON, , CBCA #### [facility] ([id number]) [address] [place] [address] 43865 MCH (RBC) [Entitic mass] 33.2 pg Normal 27-34 [facility] Comment on above: Performed By: #### Danika ATKINSON, , CBCA #### [facility] ([id number]) [address] [place] [address] 55301 MCHC (RBC) [Mass/Vol] 35.0 g/dL Normal 32-36 [facility] Comment on above: Performed By: #### Danika ATKINSON, , CBCA #### [facility] ([id number]) [address] [place] [address] 94964 MCV (RBC) [Entitic vol] 95 fL Normal 80-100 [facility] Comment on above: Performed By: #### Danika ATKINSON, , CBCA #### [facility] ([id number]) [address] [place] [address] Monocytes (Bld) [#/Vol] 0.4 10*3/uL Normal 0-0.9 [facility] Comment on above: Performed By: #### B DEMETRIO, , CBCA #### [facility] ([id number]) [address] [place] [address] 79582 Monocytes/100 WBC (Bld) 6.3 % Normal [facility] Comment on above: Performed By: #### B DEMETRIO, , CBCA #### [facility] ([id number]) [address] [place] [address], [place] [address] Neutrophils/100 WBC (Bld) 88.2 % Normal [facility] Comment on above: Performed By: #### Danika ATKINSON, , CBCA #### [facility] ([id number]) [address] [place] [address] [place] [address] Platelet mean volume (Bld) [Entitic vol] 8.9 fL Normal 7-12 [facility] Comment on above: Performed By: #### Danika ATKINSON, , CBCA #### [facility] ([id number]) [address] [place] [address], [place] [address] Platelets (Bld) [#/Vol] 236 10*3/uL Normal 150-450 [facility] Comment on above: Performed By: #### Danika ATKINSON, , CBCA #### [facility] ([id number]) [address] [place] [address], [place] [address] RBC COUNT 4.14 X10E12/L Normal 3.80-5.20 [facility] Comment on above: Performed By: #### Danika ATKINSON, , CBCA #### [facility] ([id number]) [address] [place] [address], [place] [address] WBC (Bld) [#/Vol] 6.1 10*3/uL Normal 4.0-11.0 [facility] Comment on above: Performed By: #### [place], 53568-7, CBCA #### [facility] ([id number]) [address] [place] [address] BRAIN WO CONTon 4 CT BRAIN WO CONT CT BRAIN WO CONT History: Fatigue. Altered mental status. Exam/Technique: Contiguous axial images are obtained of the brain without intravenous contrast. Coronal and sagittal reconstructions are reproduced and reviewed. Automatic exposure control was utilized. Comparison: May 2019 Findings: No intracranial blood products, mass or midline shift is present. The cerebral volume is age compatible. The ventricular and cisternal configuration is symmetric. The visualized portions of the paranasal sinuses and mastoid air cells show no fluid levels or acute disease. IMPRESSION: * No evidence of acute disease All CT scans at this facility use dose modulation, iterative reconstruction, and/or weight based dosing when appropriate to reduce radiation dose to as low as reasonably achievable. Finalized by Brandon Ashford DO on 09/25/2023 11:43 AM Normal [facility] HCG ( test) Ql (U)o n 09-25-2023 Beta HCG ( test) Ql (U) Negative Normal NEG [facility] Comment on above: Performed By: #### 2 106-3 #### [facility] ([id number]) [address] [place] [address] 35905 MAGNESIUMon 09-25-2023 Magnesium [Mass/Vol] 1.7 mg/dL Low 1.8-2.6 [facility] Comment on above: Performed By: #### [place], 036[address]-4, CBCA #### [facility] ([id number]) [address] [place] [address] 01405 SARS/FLU A+B/RSV by NAAT/Mol ecularon 09-25-2023 SARS/FLU A+B/RSV by NAAT/Molecular FLU A PCR Negative (qualifier value) FLU B PCR Negative (qualifier value) RSV by PCR Negative (qualifier value) SARS CoV 2 Detected (qualifier value) NOTE The Xpert Xpress SARS-CoV-2/Flu/RSV Plus test is a rapid, multiplexed real-time RT-PCR test intended for the simultaneous qualitative detection and differentiation of SARS-CoV-2, influenza A, influenza B and respiratory syncytial virus (RSV) viral RNA from individuals suspected of respiratory viral infection consistent with COVID-19 by their healthcare provider. This test has not been validated in asymptomatic patients. The Xpert Xpress SARS-CoV-2 test is intended for use by qualified and trained operators who are performing tests using either [employer] or [employer] systems and is limited to laboratories that meet the CLIA requirements to perform high and moderate complexity tests. The Xpert Xpress SARS-CoV-2/Flu/RSV Plus is only for use under the Food and Drug Administration's Emergency Use Authorization. Results are for the simultaneous detection and differentiation of SARS-CoV-2, influenza A, influenza B and RSV nucleic acids in clinical specimens. SARS-CoV-2, influenza A, influenza B and RSV RNA identified by this test are generally detectable in upper respiratory samples during the acute phase of infection. Positive results are indicative of the presence of the identified virus, but do not rule out bacterial infection or co-infection with other pathogens not detected by this test. Clinical correlation with patient history and other diagnostic information is necessary to determine patient infection status. The agent detected may not be the definite cause of disease. Negative results do not preclude SARS-CoV-2, influenza A, influenza B and RSV infection and should not be used as the sole basis for treatment or other patient management decisions. Negative results must be combined with clinical observations, patient history and epidemiological information. An Invalid result may occur with specimen-associated inhibition unable to be resolved with specimen repeat. Fact Sheet for Healthcare Providers: https://www.fda.gov/me hemal/410039/download Fact Sheet for Patients: https://www.fda.gov/me hemal/788231/download Normal [facility] Comment on above: Performed By: #### C OVFLR #### [facility] ([id number]) [address] [place] [address], [place] [address] URN CLAUDIA STEPHENlupe 2023 BILIRUBIN HAILEE Negative Normal NEG [facility] Comment on above: Performed By: #### N UM #### [facility] ([id number]) [address] [place] [address], [place] [address] BLOOD/HGB HAILEE Negative Normal NEG [facility] Comment on above: Performed By: #### N UM #### [facility] ([id number]) [address] [place] [address], [place] [address] GLUCOSE HAILEE Negative Normal NEG [facility] Comment on above: Performed By: #### N UM #### [facility] ([id number]) [address] [place] [address], [place] [address] KETONES HAILEE Negative Normal NEG [facility] Comment on above: Performed By: #### N UM #### [facility] ([id number]) [address] [place] [address], [place] [address] LEUKOCYTE ESTERASE HAILEE Negative Normal NEG [facility] Comment on above: Performed By: #### N UM #### [facility] ([id number]) [address] [place] [address], [place] [address] NITRITE HAILEE Negative Normal NEG [facility] Comment on above: Performed By: #### N UM #### [facility] ([id number]) [address] [place] [address], [place] [address] PH HAILEE 7.5 Normal 5.0-8.5 [facility] Comment on above: Performed By: #### N UM #### [facility] ([id number]) [address] [place] [address], [place] [address] PROTEIN HAILEE Negative Normal NEG [facility] Comment on above: Performed By: #### N UM #### [facility] ([id number]) [address] [place] [address], [place] [address] SPECIFIC GRAVITY HAILEE 1.025 Normal 1.003-1.035 [facility] Comment on above: Performed By: #### N UM #### [facility] ([id number]) [address] [place] [address] UROBILINOGEN HAILEE 1.0 eu/dL Normal <1.1 [facility] Comment on above: Performed By: #### N UM #### [facility] ([id number]) [address] [place] [address] 26024 Surgical Pathologyon 024 Surgical Pathology Normal [facility] Comment on above: Result Comment: [facility] [address] [place] [address] Surgical Pathology Consultation Patient Name:TRAN REAGAN:1985 (Age: 38)Gender:FTaken:08/04/2023eported:08/07/2023hysician(s):Ashley Randle DO ([phone])Copy To: Rec. #:[id number]: #[id number] Final Pathologic Diagnosis Left intraoral mucosal lesion, biopsy: Benign squamous papilloma. No dysplasia or malignancy identified. Report Electronically Signed Out nxk/08/07/2023Luan Fam MD Interpretation performed at [employer], [address] [place] [address], License number: [id number]. Clinical History Mass of oral cavity K13.79. Three intraoral mucosal lesions, left. Gross Description Received in formalin labeled KATELYNN oral cavity BX is a eaiw-znn-[id number] mucosal lined portion of soft tissue, 0.6 x 0.4 x 0.1 cm. No lesion or area of discoloration definitively identified. The resection margin is inked green. The specimen is bisected and entirely submitted in a single cassette. (1, ns, [id number],m2) DM. No site on container. Per [facility] progress notes the site is left mucosal lesion dm/4RG Specimen(s) Received Left intraoral mucosal lesion Fee Codes(s): 1; 08173 Amphetamine Screen Ql (U)Ord ered By: Richard Lopez on 04-19-2023 Amphetamines Ql (U) Negative Negative [facility] Barbiturates [Presence] in U rine by Screen methodOrdered By: Richard Lopez on 04-19-2023 Barbiturates Screen Ql (U) Negative Negative [facility] Benzodiazepines Screen Ql (U )Ordered By: Richard Lopez on 04-19-2023 Benzodiazepines Ql (U) Negative Negative [facility] Benzoylecgonine [Presence] i n Urine by Screen methodOrdered By: Richard Lopez on 04-19-2023 Benzoylecgonine Screen Ql (U) Negative Negative [facility] Cannabinoids [Presence] in U rine by Screen methodOrdered By: Richard Lopez on 04-19-2023 Cannabinoids Screen Ql (U) Positive Negative [facility] Comment on above: These are unconfirme d results and should not be used for legal purposes. Drug Cut-Off Concentration: AMPH 1000 ng/mL ASHLEY 200 ng/mL SON 200 ng/mL COCM 300 ng/mL OP 300 ng/mL PCP 25 ng/mL THC 20 ng/mL Drug Screen,Urineon 04-19-20 23 Amphetamine Screen,Urine Negative Normal Negative [facility] Comment on above: Performed By: #### U RDS #### [address] Barbiturate Screen,Urine Negative Normal Negative [facility] Comment on above: Performed By: #### U RDS #### [facility] [address] [place] [address] [place] Benzodiazepines Screen,Urine Negative Normal Negative [facility] Comment on above: Performed By: #### U RDS #### [facility] [address] [place] [address] Cannabinoid Screen,Urine Positive High Negative [facility] Comment on above: Result Comment: Thes e are unconfirmed results and should not be used for legal purposes. Drug Cut-Off Concentration: AMPH 1000 ng/mL ASHLEY 200 ng/mL SON 200 ng/mL COCM 300 ng/mL OP 300 ng/mL PCP 25 ng/mL THC 20 ng/mL PERFORMED BY: [place] [address] PATHOLOGIST [employer] CLERK FENG GARCIAS M.D. Performed By: #### U RDS #### [facility] [address] Cocaine Screen,Urine Negative Normal Negative [facility] Comment on above: Performed By: #### U RDS #### [facility] [address] Opiate Screen,Urine Negative Normal Negative [facility] Comment on above: Performed By: #### U RDS #### [address] Phencyclidine Screen,Urine Negative Normal Negative [facility] Comment on above: Performed By: #### U RDS #### [address] HCG ( test) IA.rapi d Ql (U)Ordered By: Richard Lopez on 04-19-2023 HCG ( test) Ql (U) Negative [facility] HCG,Urineon 04-19-2023 Beta HCG ( test) Ql (U) Negative Normal [facility] Comment on above: Result Comment: PERF ORMED BY: [place] [address] PATHOLOGIST [employer] INVENTORY CLERK FENG GARCIAS M.D. Performed By: #### U HCG #### [facility] [address] [place] [address] Opiates [Presence] in Urine by Screen methodOrdered By: Richard Lopez on 04-19-2023 Opiates Screen Ql (U) Negative Negative [facility] Phencyclidine Screen Ql (U)O rdered By: Richard Lopez on 04-19-2023 Phencyclidine Ql (U) Negative Negative [facility] CBC AUTO DIFFon 02-12-2019 Basophils (Bld) [#/Vol] 0.0 103/ul Normal 0.0-0.1 [facility] Comment on above: Performed By: #### C BC #### [facility] [address] [address] Agueda Byers Basophils/100 WBC (Bld) 0.2 % Normal 0.2-2.0 [facility] Comment on above: Performed By: #### C BC #### [facility] [address] [place] [address] Agueda Modesta Eosinophils (Bld) [#/Vol] 0.2 103/ul Normal 0.0-0.7 [facility] Comment on above: Performed By: #### C BC #### [facility] [address] [place] [address] Agueda Modesta Eosinophils/100 WBC (Bld) 2.8 % Normal 0.9-7.0 [facility] Comment on above: Performed By: #### C BC #### [facility] [address] [place] [address] Agueda Modesta Erythrocyte distribution width (RBC) [Ratio] 11.2 % Normal 11.0-15.0 [facility] Comment on above: Performed By: #### C BC #### [facility] [address] [place] [address] Agueda Modesta Hematocrit (Bld) [Volume fraction] 43.7 % Normal 36.0-48.0 [facility] Comment on above: Performed By: #### C BC #### [facility] [address] [place] [address] Agueda Modesta Hemoglobin (Bld) [Mass/Vol] 15.1 g/dL Normal 12.0-16.0 [facility] Comment on above: Performed By: #### C BC #### [facility] [address] [place] [address] Agueda Modesta IG # 0.01 10e3/ul Normal 0.00-0.03 [facility] Comment on above: Performed By: #### C BC #### [facility] [address] [place] [address] Agueda Modesta IG % 0.2 % Normal 0.0-0.5 [facility] Comment on above: Performed By: #### C BC #### [facility] [address] [place] [address] Agueda Modesta Lymphocytes (Bld) [#/Vol] 1.1 103/ul Critically low 1.2-3.8 [facility] Comment on above: Performed By: #### C BC #### [facility] [address] [place], [place] [address] Agueda Modesta Lymphocytes/100 WBC (Bld) 19.4 % Critically low 20.5-60.0 [facility] Comment on above: Performed By: #### C BC #### [facility] [address] [place], [place] [address] Agueda Modesta MANUAL DIFF REQ NO Normal [facility] Comment on above: Performed By: #### C BC #### [facility] [address] [place], [place] [address] Agueda Modesta MCH (RBC) [Entitic mass] 33.8 pg Normal 26.7-34.0 [facility] Comment on above: Performed By: #### C BC #### [facility] [address] [place], [place] [address] Agueda Modesta MCHC (RBC) [Mass/Vol] 34.6 g/dL Normal 29.9-35.2 [facility] Comment on above: Performed By: #### C BC #### [facility] [address] [place], [place] [address] Agueda Modesta MCV (RBC) [Entitic vol] 97.8 fL Normal 81.0-99.0 [facility] Comment on above: Performed By: #### C BC #### [facility] [address] [place], [place] [address] Agueda Modesta Monocytes (Bld) [#/Vol] 0.3 103/ul Normal 0.3-0.8 [facility] Comment on above: Performed By: #### C BC #### [facility] [address] [place], [place] [address] Agueda Modesta Monocytes/100 WBC (Bld) 5.8 % Normal 1.7-12.0 [facility] Comment on above: Performed By: #### C BC #### [facility] [address] [place], [place] [address] Agueda Modesta Neutrophils (Bld) [#/Vol] 4.1 103/ul Normal 1.4-6.5 [facility] Comment on above: Performed By: #### C BC #### [facility] [address] [place], [place] [address] Agueda Modesta Neutrophils/100 WBC (Bld) 71.6 % Normal 43.0-75.0 [facility] Comment on above: Performed By: #### C BC #### [facility] [address] [place], [place] [address] Agueda Modesta Platelet mean volume (Bld) [Entitic vol] 10.8 fL Normal 9.5-13.5 [facility] Comment on above: Performed By: #### C BC #### [facility] [address] [place] [address] Agueda Modesta Platelets (Bld) [#/Vol] 234 103/ul Normal 150-450 [facility] Comment on above: Performed By: #### C BC #### [facility] [address] [place] [address] Agueda Modesta RBC (Bld) [#/Vol] 4.47 106/ul Normal 4.20-5.40 [facility] Comment on above: Performed By: #### C BC #### [facility] [address] [place] [address] Agueda [place] WBC (Bld) [#/Vol] 5.7 103/ul Normal 4.0-11.0 [facility] Comment on above: Performed By: #### C BC #### [facility] [address] [place] [address] ABD/PELVIS WO CONon 02-12 CT ABD/PELVIS WO CON Patient: TRAN REAGAN Exam Date: 02/12/2019 : 1985 Gender:F Ordering : DR SPENCER VELASQUEZ D.O. Admission #: [id number] Family : Order #: [id number] CLICK HERE TO VIEW EXAM RADIOLOGY REPORT PROCEDURE: CT ABDOMEN AND PELVIS WITHOUT CONTRAST COMPARISON: None. INDICATIONS: Acute right flank plain TECHNIQUE: Axial, Coronal, and Sagittal CT images of the abdomen and pelvis were created without IV contrast material. DOSE: 456 mGycm FINDINGS: KIDNEY - RIGHT: Contains a nonobstructing 2 mm stone. URETER - RIGHT: No calcifications or abnormal dilation. KIDNEY - LEFT: Contains 2 nonobstructing 2 mm stones. URETER - LEFT: No calcifications or abnormal dilation. URINARY BLADDER: No calculus, visible focal wall thickening, or lesion. LUNG BASES: No visible pulmonary or pleural disease. LIVER: No enlargement, atrophy, abnormal density, or significant focal lesion. BILIARY: No visible dilatation or calcification. PANCREAS: No lesion, fluid collection, ductal dilatation, or atrophy. SPLEEN: No enlargement or focal lesion. ADRENALS: No mass or enlargement. BOWEL/MESENTERY: No visible mass, obstruction, or bowel wall thickening. AORTA/VASCULAR: No aneurysm. RETROPERITONEUM: No mass or adenopathy. LYMPH NODES: No adenopathy. PELVIC ORGANS: 1.4 cm right ovarian cyst. No visible mass. Pelvic organs appropriate for patient age. ABDOMINAL WALL: No mass or hernia. BONES: No bony lesion or fracture. OTHER: Negative. CONCLUSION: 1. Bilateral nonobstructing nephrolithiasis. No convincing ureteral stones. There are several small calcifications along the course of the right and left ureters which do not appear to be within the ureters, but are difficult to exclude due to lack of separation of the ureters from surrounding structures. 2. Unremarkable bowel. Dictated by: Pablito Patel M.D. on 02/12/2019 at 15:43 Approved by: Pablito Patel M.D. on 02/12/2019 at 15:56 Normal [facility] ER URINE PROFILEon 9 Bilirubin [Mass/Vol] Negative Normal NEGATIVE [facility] Comment on above: Performed By: #### E RUR #### [facility] [address], [place] [address] Agueda Modesta BLOOD Negative Normal NEGATIVE [facility] Comment on above: Performed By: #### E RUR #### [facility] [address], [place] [address] Agueda Modesta Clarity (U) CLEAR Normal [facility] Comment on above: Performed By: #### E RUR #### [facility] [address], [place] [address] Agueda Modesta Color (U) LT. YELLOW Normal YELLOW [facility] Comment on above: Performed By: #### E RUR #### [facility] [address] [place], [place] [id number] Agueda Byers ERUAHD A micrscopic examination will be performed if indicated. Normal [facility] Comment on above: Performed By: #### E RUR #### [facility] [address] [place] [address] Agueda Modesta Glucose [Mass/Vol] Negative Normal NEGATIVE [facility] Comment on above: Performed By: #### E RUR #### [facility] [address] [place] [address] Agueda Modesta Ketones Ql (U) Negative Normal NEGATIVE [facility] Comment on above: Performed By: #### E RUR #### [facility] [address] [place] [address] Agueda Modesta Nitrite Ql (U) Negative Normal NEGATIVE [facility] Comment on above: Performed By: #### E RUR #### [facility] [address] [place] [address] Agueda Modesta pH (Bld) 6.0 Normal 5-9 [facility] Comment on above: Performed By: #### E RUR #### [facility] [address] [place] [address] Agueda Modesta Protein (U) [Mass/Vol] Negative Normal [facility] Comment on above: Performed By: #### E RUR #### [facility] [address] [place] [address] Agueda Picketten SPEC GRAVITY 1.010 Normal 1.005-<=1.025 [facility] Comment on above: Performed By: #### E RUR #### [facility] [address] [place] [address] Agueda Modesta UR MICRO IND NOT INDICATED Normal [facility] Comment on above: Performed By: #### E RUR #### [facility] [address] [place] [address] Agueda Moedsta Urobilinogen Qn (U) 0.2 EU/dl Normal [facility] Comment on above: Performed By: #### E RUR #### [facility] [address], [place] [address] Agueda Byers WBC (Bld) [#/Vol] Negative Normal NEGATIVE [facility] Comment on above: Performed By: #### E RUR #### [facility] [address], [place] [address] Agueda Byers URon 02-12-2019 , QUAL Negative Normal NEGATIVE [facility] Comment on above: Performed By: #### P REGU #### [facility] [address], [place] [address] Agueda Byers *VAGINITIS DNA PROBEon 12-27 *VAGINITIS DNA PROBE Clinical Report: (D ) Specimen: GENITAL Collected: 12/27/2017 18:19 Status: Final Last Updated: 12/27/2017 21:39 ROSA (Final) Negative AUGUSTA (Final) Positive TRICH (Final) Negative Normal [facility] Comment on above: Performed By: #### 3 0788 ####[facility] CHLAMYDIA/GC PCRon 8 Chlamydia Trachomatis Not Detected Normal Not Detected [facility] Comment on above: Performed By: #### 3 0113 ####[facility] [place] [address], [facility] Neisseria Gonorrhoeae Not Detected Normal Not Detected [facility] Comment on above: Performed By: #### 3 0113 ####[facility] Vital Signs Date Time Vital Sign Value Performing Clinician Facility 07-19-2024 11:12-0500 Body height 157.5 cm Raffaele Aguero MD Work Phone: [facility] 07-19-2024 11:12-0500 Body mass index (BMI) [Ratio] 30.73 kg/m2 Raffaele Aguero MD Work Phone: [facility] 07-19-2024 11:12-0500 Body weight 76.2 kg Raffaele Aguero MD Work Phone: [facility] 07-19-2024 11:12-0500 Diastolic blood pressure 80 mm[Hg] Raffaele Aguero MD Work Phone: [facility] 07-19-2024 11:12-0500 Heart rate 85 /min Raffaele Aguero MD Work Phone: [facility] 07-19-2024 11:12-0500 Respiratory rate 18 /min Raffaele Aguero MD Work Phone: [facility] 07-19-2024 11:12-0500 Systolic blood pressure 120 mm[Hg] Raffaele Aguero MD Work Phone: [facility] 06-26-2024 08:49-0500 Body mass index (BMI) [Ratio] 30.73 kg/m2 Anson Domínguez MD Work Phone: [facility] 06-26-2024 08:49-0500 Body weight 76.2 kg Anson Domínguez MD Work Phone: [facility] 06-26-2024 08:49-0500 Diastolic blood pressure 76 mm[Hg] Anson Domínguez MD Work Phone: [facility] 06-26-2024 08:49-0500 Heart rate 68 /min Anson Domínguez MD Work Phone: [facility] 06-26-2024 08:49-0500 Respiratory rate 16 /min Anson Domínguez MD Work Phone: [facility] 06-26-2024 08:49-0500 SaO2% (BldA) [Mass fraction] 98 % Anson Domínguez MD Work Phone: [facility] 06-26-2024 08:49-0500 Systolic blood pressure 124 mm[Hg] Anson Domínguez MD Work Phone: [facility] 05-09-2024 14:27-0500 Body mass index (BMI) [Ratio] 30.91 kg/m2 Riri Acevedo [employer]GER Work Phone: [facility] 05-09-2024 14:27-0500 Body weight 76.66 kg Riri Acevedo [employer] PRO[employer] MANAGER Work Phone: [facility] 05-09-2024 14:27-0500 Diastolic blood pressure 90 mm[Hg] Riri Acevedo [employer] PRO[employer] MANAGER Work Phone: [facility] 05-09-2024 14:27-0500 Heart rate 89 /min Riri Acevedo [employer] MANAGER Work Phone: [facility] 05-09-2024 14:27-0500 Systolic blood pressure 144 mm[Hg] Riri Acevedo [employer] PRO[employer] MANAGER Work Phone: [facility] 04-19-2023 14:08-0400 Diastolic blood pressure 77 mm[Hg] DO Philly Rumschlag Work Phone: [facility] 04-19-2023 14:08-0400 Heart rate 74 /min DO Philly Rumschlag Work Phone: [facility] 04-19-2023 14:08-0400 Respiratory rate 16 /min DO Philly Rumschlag Work Phone: [facility] 04-19-2023 14:08-0400 SaO2% (BldA) [Mass fraction] 99 % DO Philly Rumschlag Work Phone: [facility] 04-19-2023 14:08-0400 Systolic blood pressure 111 mm[Hg] DO Philly Rumschlag Work Phone: [facility] 04-19-2023 12:24-0400 Body height 157.48 cm DO Philly Rumschlag Work Phone: [facility] 04-19-2023 12:24-0400 Body weight 73.48 kg DO Philly Rumschlag Work Phone: [facility] 04-07-2023 14:30-0400 Body weight 73.48 kg Arturo Figueroa Other [facility] Other 04-07-2023 14:30-0400 Diastolic blood pressure 87 mm[Hg] Arturo Figueroa Other [facility] Other 04-07-2023 14:30-0400 Systolic blood pressure 111 mm[Hg] Arturo Figueroa Other [facility] Other Encounters Encounter Date Encounter Type Care Provider Facility Start: 08-24-2024 End: 08-24-2024 Emergency department patient visit [facility] Start: 08-21-2024 End: 08-21-2024 Emergency department patient visit [facility] Start: 08-12-2024 End: 08-12-2024 ambulatory RAFFAELE Waterman [facility] Start: 07-26-2024 End: 07-26-2024 Bamboo flowsheet [facility] Start: 07-26-2024 End: 07-26-2024 Bamboo flowsheet Doreen Zachery [facility] Work Phone: [facility] Start: 07-26-2024 End: 07-26-2024 Clinical Support Doreen Bingham [facility] Work Phone: [facility] Comment on above: Mastoiditis, bilater al (Primary Dx) Start: 07-19-2024 End: 07-19-2024 Bamboo flowsheet Raffaele Aguero MD Work Phone: [facility] Start: 07-19-2024 End: 07-19-2024 Bamboo flowsheet Raffaele Aguero MD Work Phone: [facility] Start: 07-19-2024 End: 07-19-2024 Office outpatient visit 25 minutes Raffaele Aguero MD Work Phone: [facility] Comment on above: Subclinical hypothyr oidism (CMS/HCC) (Primary Dx); Vitamin D deficiency; Encounter for dietary consultation Start: 07-19-2024 End: 07-19-2024 ambulatory RAFFAELE AGUERO Not Available Start: 07-04-2024 End: 07-04-2024 ambulatory [facility] Start: 06-26-2024 End: 06-26-2024 ambulatory [facility] Start: 06-26-2024 End: 06-26-2024 Office outpatient visit 15 minutes Anson Domínguez MD Work Phone: [facility] Comment on above: Mass of left thigh ( Primary Dx) Start: 06-05-2024 End: 06-05-2024 ambulatory [facility] Start: 05-23-2024 End: 05-23-2024 Bamboo cecilio Portillo PhD Work Phone: [facility] Start: 05-23-2024 End: 05-23-2024 Aileen Portillo PhD Work Phone: [facility] Start: 05-23-2024 End: 05-23-2024 ambulatory FRANCISCO J PORTILLO Not Available Start: 05-23-2024 End: 05-23-2024 Patient encounter procedure Francisco J Portillo PhD Work Phone: [facility] Comment on above: Cognitive impairment (Primary Dx); ADHD (attention deficit hyperactivity disorder), inattentive type (CMS/HCC); Bipolar affective disorder, remission status unspecified (CMS/HCC); PTSD (post-traumatic stress disorder) (CMS/HCC); Generalized anxiety disorder (CMS/HCC); COVID-19 [place] Start: 05-09-2024 End: 05-09-2024 Office outpatient visit 25 minutes Riri Acevedo NP Work Phone: [facility] Comment on above: Vertigo (Primary Dx) ; Vestibular migraine (CMS/HCC); Cognitive impairment Start: 05-09-2024 End: 05-09-2024 ambulatory RIIR ACEVEDO Not Available Start: 05-09-2024 End: 05-09-2024 Bamboo flowsheet Riri Acevedo [employer] MANAGER [facility] Start: 05-09-2024 End: 05-09-2024 Bamboo flowsheet Riri Acevedo [employer] PRO[employer] MANAGER Work Phone: [facility] Start: 04-10-2024 End: 04-10-2024 ambulatory RIRI ACEVEDO [facility] Start: 04-01-2024 End: 04-01-2024 ambulatory [facility] Start: 03-29-2024 End: 03-29-2024 Emergency department patient visit [facility] Start: 03-22-2024 End: 03-22-2024 Telephone encounter Jomar Pemberton MA [facility] Start: 03-22-2024 End: 03-22-2024 ambulatory [facility] Start: 03-20-2024 End: 03-20-2024 External Result Encounter Riri Acevedo [employer] MANAGER Work Phone: [facility] Unsolicited Start: 03-20-2024 End: 03-20-2024 External Result Encounter Riri Acevedo [employer] MANAGER Work Phone: [facility] Unsolicited Start: 03-20-2024 End: 03-20-2024 ambulatory [facility] Start: 03-13-2024 End: 03-13-2024 ambulatory RIRI ACEVEDO Not Available Start: 03-13-2024 End: 03-13-2024 Office outpatient visit 25 minutes Riri Acevedo [employer] PRO[employer] MANAGER Work Phone: [facility] Comment on above: Vertigo (Primary Dx) ; Cognitive impairment; Numbness; Vestibular migraine (CMS/HCC) Start: 02-08-2024 End: 02-08-2024 ambulatory [facility] Start: 02-07-2024 End: 02-07-2024 ambulatory ROSALIE PARKER Not Available Start: 02-01-2024 End: 02-01-2024 Emergency department patient visit DERRICK [place] MIHAELA [facility] Start: 01-27-2024 End: 01-27-2024 ambulatory LAKESHA ABERNATHY Not Available Start: 01-26-2024 End: 01-26-2024 ambulatory [facility] Start: 01-26-2024 Encounter for genera l adult medical examination without abnormal findings [facility] Start: 12-24-2023 End: 12-24-2023 ambulatory KINAJyoti ACOSTA Not Available Start: 12-20-2023 End: 12-20-2023 ambulatory LAKESHA ABERNATHY Not Available Start: 12-15-2023 End: 12-15-2023 ambulatory LAURIE NORTON Not Available Start: 12-10-2023 End: 12-10-2023 ambulatory [facility] Start: 11-26-2023 End: 11-26-2023 Emergency department patient visit [facility] Start: 11-25-2023 End: 11-25-2023 ambulatory [facility] Start: 11-17-2023 End: 11-17-2023 ambulatory LAURIE NORTON Not Available Start: 11-14-2023 End: 11-15-2023 Emergency department patient visit JORGE L Diop VICKEY [facility] Start: 11-06-2023 End: 11-06-2023 ambulatory [facility] Start: 11-02-2023 End: 11-02-2023 ambulatory [facility] Start: 10-31-2023 End: 10-31-2023 Emergency department patient visit [facility] Start: 10-20-2023 End: 10-20-2023 ambulatory LAURIE NORTON Not Available Start: 09-25-2023 End: 09-26-2023 Emergency department patient visit MADISON VEE [facility] Start: 09-22-2023 End: 09-22-2023 Emergency department patient visit [facility] Start: 09-10-2023 End: 09-10-2023 ambulatory ANSON DOMÍNGUEZ [facility] Start: 08-27-2023 End: 08-27-2023 [facility] Start: 08-16-2023 End: 08-16-2023 ambulatory [facility] Start: 08-04-2023 End: 08-04-2023 ambulatory [facility] Start: 08-04-2023 End: 08-04-2023 ambulatory DONYA[facility]IVON [facility] Start: 04-21-2023 End: 04-21-2023 ambulatory Arturo Figueroa Other [facility] Other Start: 04-21-2023 Telephone encounter Arturo [facility] Start: 04-19-2023 End: 04-19-2023 ambulatory Richard Lopez Facility:[facility] Start: 04-19-2023 End: 04-19-2023 Admission to same day surgery center DO Philly Rumschlag Work Phone: [facility] Work Phone: Start: 04-19-2023 End: 04-19-2023 ambulatory DO Philly Rumschlag Work Phone: [facility] Work Phone: Start: 04-07-2023 End: 04-07-2023 ambulatory Arturo Figueroa Other [facility] Other Start: 04-07-2023 Office outpatient ne w 30 minutes Arturo Figueroa [facility] Start: 11-02-2019 End: 11-02-2019 Patient encounter procedure GEOVANY BAGLEY Facility: Start: 02-12-2019 End: 02-12-2019 Patient encounter procedure SPENCER VELASQUEZ Facility: Start: 12-27-2017 End: 12-28-2017 Ambulatory CHAYANIKA PAL Facility:[facility] Start: 11-16-2017 End: 11-17-2017 Ambulatory DEFAULT PHYSICIAN Facility:[facility] Procedures Date Procedure Procedure Detail Performing Clinician Start: 07-26-2024 AUDITORY FUNCTION TESTS Doreen Salinas [facility] Work Phone: Start: 03-20-2024 Cyanocobalamin vitamin b-12 Riri mora [employer] MANAGER Work Phone: Start: 02-08-2024 Adult depression screening assessment Anson Domínguez MD Work Phone: Start: 09-10-2023 Follow-up visit Follow-up ANSON DOMÍNGUEZ Start: 07-09-2023 Colonoscopy Anson Domínguez MD Work Phone: Start: 04-19-2023 Esophagogastroduodenoscopy DO Philly cash Work Phone: Start: 01-19-2023 Microscopic observation [Identifier] in Cervix by Cyto stain Anson Domínguez MD Work Phone: Plan of Treatment Date Care Activity Detail Author Start: 07-26-2029 DTaP,Tdap and Td Vaccines (3 - Td or Tdap) DTaP,Tdap and Td Vaccines (3 - Td or Tdap) [facility] Start: 07-09-2028 Screening for malignant neoplasm of colon Colonoscopy [facility] Start: 01-19-2026 Screening for malignant neoplasm of cervix Pap Smear [facility] Start: 06-26-2025 Adult BMI Screening Adult BMI Screening [facility] Start: 03-29-2025 Tobacco Screening Tobacco Screening [facility] Start: 02-07-2025 Depression Screening Depression Screening [facility] Start: 01-17-2025 End: 01-17-2025 Patient encounter procedure 01/17/2025 11:30 AM EDT Office Visit [facility] [address] [place] [address] Raffaele Aguero MD [address] [place] [address] [facility] Start: 09-25-2024 End: 09-25-2024 Patient encounter procedure 09/25/2024 10:00 AM EDT Office Visit [facility] [address] [place] [address] Riri Acevedo NP [address] [place] [address] [facility] Start: 08-27-2024 Adult BMI Follow Up Plan Adult BMI Follow Up Plan [facility] Start: 08-14-2024 End: 08-14-2024 Patient encounter procedure 08/14/2024 10:00 AM EST Office Visit [facility] [address] [facility] [address] [place] [address] [facility] Start: 08-09-2024 End: 08-09-2024 Patient encounter procedure 08/09/2024 11:20 AM EST Office Visit [facility] [address] [facility] [address] [place] [id number] Rosalie Parker MD [address] [place], [place] [id number] [facility] Start: 07-26-2024 End: 07-26-2024 Clinical Support [facility] Comment on above: Arrived Start: 07-19-2024 End: 07-19-2025 Thyroglobulin Antibody Thyroglobulin Antibody Lab Routine Subclinical hypothyroidism (CMS/HCC) Expected: 07/19/2024 (Approximate), Expires: 07/19/2025 [facility] Work Phone: Comment on above: Expected: 07/19/2024 (Approximate), Expi res: 07/19/2025 Start: 07-19-2024 End: 07-19-2025 Thyrotropin [Units/volume] in Serum or Plasma TSH Lab Routine Subclinical hypothyroidism (CMS/HCC) Expected: 07/19/2024 (Approximate), Expires: 07/19/2025 [facility] Comment on above: Expected: 07/19/2024 (Approximate), Expi res: 07/19/2025 Start: 07-19-2024 End: 07-19-2025 Thyrotropin receptor antibody Thyrotropin receptor antibody Lab Routine Subclinical hypothyroidism (CMS/HCC) Expected: 07/19/2024 (Approximate), Expires: 07/19/2025 [facility] Comment on above: Expected: 07/19/2024 (Approximate), Expi res: 07/19/2025 Start: 07-19-2024 End: 07-19-2025 Thyroxine (T4) free [Mass/volume] in Serum or Plasma T4, free Lab Routine Subclinical hypothyroidism (CMS/HCC) Expected: 07/19/2024 (Approximate), Expires: 07/19/2025 [facility] Comment on above: Expected: 07/19/2024 (Approximate), Expi res: 07/19/2025 Start: 07-19-2024 End: 07-19-2025 Triiodothyronine (T3) Free [Mass/volume] in Serum or Plasma T3, free Lab Routine Subclinical hypothyroidism (CMS/HCC) Expected: 07/19/2024 (Approximate), Expires: 07/19/2025 [facility] Comment on above: Expected: 07/19/2024 (Approximate), Expi res: 07/19/2025 Start: 07-19-2024 End: 07-19-2024 Patient encounter procedure [facility] Comment on above: Arrived Start: 06-14-2024 End: 06-14-2024 Patient encounter procedure 06/14/2024 9:00 AM EST Office Visit [facility] [address] [phone] [facility] Start: 06-07-2024 End: 06-07-2024 Patient encounter procedure 06/07/2024 3:40 PM EST Office Visit [facility] [place] [address] [place] [phone] Riri Acevedo, NAVNEET [address] [place] [address] [facility] [place] [facility] Start: 05-23-2024 End: 05-23-2024 Patient encounter procedure 05/23/2024 1:00 PM EST Office Visit [facility] [address] [phone] Francisco J Portillo, PhD [address] [place] [address] [facility] Start: 05-09-2024 End: 05-09-2024 Patient encounter procedure 05/09/2024 2:20 PM EST Office Visit [facility] [address] [facility] [place] [address] Riri Acevedo, [employer] PRO[employer] MANAGER [address] [place] [address] Arrived [facility] Comment on above: Arrived Start: 04-19-2024 End: 04-19-2024 Patient encounter procedure 04/19/2024 11:20 AM EDT Office Visit [facility] [address] [place] [address] Riri Acevedo, [employer] PROJECT MANAGER [address] [place] [address] [facility] Start: 03-14-2024 End: 03-14-2025 Cobalamin (Vitamin B12) [Mass/volume] in Serum or Plasma Vitamin B12 Lab Routine Cognitive impairment Expected: 03/14/2024 (Approximate), Expires: 03/14/2025 [facility] Comment on above: Expected: 03/14/2024 (Approximate), Expi res: 03/14/2025 Start: 03-14-2024 End: 03-14-2025 HIV-1/HIV-2 antigen/antibody combination immunoassay HIV-1 and HIV-2 antibodies Lab Routine Cognitive impairment Expected: 03/14/2024 (Approximate), Expires: 03/14/2025 [facility] Comment on above: Expected: 03/14/2024 (Approximate), Expi res: 03/14/2025 Start: 03-14-2024 End: 03-14-2025 LYME, TOTAL AB WITH REFLEX ([facility]) LYME, TOTAL AB WITH REFLEX ([facility]) Lab Routine Cognitive impairment Expected: 03/14/2024 (Approximate), Expires: 03/14/2025 [facility] Comment on above: Expected: 03/14/2024 (Approximate), Expi res: 03/14/2025 Start: 03-14-2024 End: 03-14-2025 MR Brain WO and W contrast IV MR brain w and wo contrast routine Imaging Routine Vertigo Cognitive impairment Numbness Expected: 03/14/2024 (Approximate), Expires: 03/14/2025 [facility] Work Phone: Comment on above: Expected: 03/14/2024 (Approximate), Expi res: 03/14/2025 Start: 03-14-2024 End: 03-14-2025 Reagin Ab [Presence] in Serum by RPR RPR Lab Routine Cognitive impairment Expected: 03/14/2024 (Approximate), Expires: 03/14/2025 [facility] Comment on above: Expected: 03/14/2024 (Approximate), Expi res: 03/14/2025 Start: 03-05-2024 Influenza vaccination Influenza Vaccine [facility] Start: 04-19-2023 [facility] Patient Education Hiatal hernia Esophagitis [facility] Work Phone: Immunizations Immunization Date Immunization Notes Care Provider [facility] 07-26-2019 tetanus toxoid, redu ghazala diphtheria toxoid, and acellular pertussis vaccine, adsorbed Riri Acevedo [employer] Work Phone: [facility] 07-05-2012 tetanus toxoid, redu ghazala diphtheria toxoid, and acellular pertussis vaccine, adsorbed Riri Acevedo [employer] Work Phone: [facility] 06-02-2010 influenza, seasonal, injectable Riri Acevedo [employer] Work Phone: [facility] 06-02-2010 influenza virus vacc ine, unspecified formulation Anson Domínguez MD Work Phone: [facility] 07-15-2009 novel Influenza-H1N1 -09, live virus for nasal administration Riri Acevedo [employer] Work Phone: [facility] Payers Date Payer Category Payer Self-pay 2021 Medicaid [employer] [place] [employer] [id number] 2021-Present [address] [place] [address] [id number] 2021 Medicaid (Managed Care) [facility] MEDICAID [id number] 2019 Medicaid HMO [employer] [employer] [id number] 1986 Unknown [id number] 2.16840.1.578533.3.579.2. 593 1986 Unknown [id number] 2.16840.1.263730.3.579.2. 593 1986 Unknown [id number] 2.16840.1.817041.3.579.2. 1286 1986 Unknown [id number] 2.16840.1.336440.3.579.2. 1286 1986 Unknown [id number] 2.16840.1.269173.3.579.2. 1286 1986 Unknown [id number] 2.16.840.1.950742.3.579.2. 6 1986 Unknown [id number] 2.16.840.1.958127.3.579.2. 1285 1986 Unknown [id number] 2.16.840.1.951664.3.579.2. 1285 1986 Unknown [id number] 2.16.840.1.390199.3.579.2. 1285 1986 Unknown [id number] 2.16.840.1.538676.3.579.2. 1285 1986 Unknown [id number] 2.16.840.1.122657.3.579.2. 1285 1986 Unknown [id number] 2.16.840.1.543462.3.579.2. 1285 1986 Unknown [id number] 2.16.840.1.232196.3.579.2. 1285 1986 Unknown [id number] 2.16.840.1.410459.3.579.2. 1285 1986 Unknown [id number] 2.16.840.1.728828.3.579.2. 1285 1986 Unknown [id number] 2.16.840.1.872899.3.579.2. 1258 1986 Unknown [id number] 2.16.840.1.093204.3.579.2. 1258 1986 Unknown [id number] 2.16.840.1.547667.3.579.2. 1258 1986 Unknown [id number] 2.16.840.1.101054.3.579.2. 1258 1986 Unknown [id number] 2.16.840.1.789024.3.579.2. 1258 1986 Unknown [id number] 2.16.840.1.691013.3.579.2. 1258 1986 Unknown [id number] 2.16.840.1.362489.3.579.2. 1258 1986 Unknown [id number] 2.16.840.1.349379.3.579.2. 1258 1986 Unknown [id number] 2.16.840.1.068113.3.579.2. 1258 1986 Unknown [id number] 2.16.840.1.660948.3.579.2. 1258 1986 Unknown [id number] 2.16.840.1.189174.3.579.2. 1258 1986 Unknown [id number] 2.16.840.1.656320.3.579.2. 1258 1986 Unknown [id number] 2.16.840.1.960736.3.579.2. 1285 1986 Unknown [id number] 2.16.840.1.094773.3.579.2. 1285 1986 Unknown [id number] 2.16.840.1.802478.3.579.2. 1285 1986 Unknown [id number] 2.16.840.1.455000.3.579.2. 1285 1986 Unknown [id number] 2.16.840.1.026324.3.579.2. 1285 1986 Unknown [id number] 2.16.840.1.817606.3.579.2. 1285 1986 Unknown [id number] 2.16.840.1.224299.3.579.2. 1285 1986 Unknown [id number] 2.16.840.1.939359.3.579.2. 1285 1986 Unknown [id number] 2.16.840.1.874702.3.579.2. 1285 1986 Unknown [id number] 2.16.840.1.187582.3.579.2. 1285 1986 Unknown [id number] 2.16.840.1.888188.3.579.2. 1286 1986 Unknown [id number] 2.16.840.1.286055.3.579.2. 1286 1986 Unknown [id number] 2.16.840.1.383601.3.579.2. 1286 1986 Unknown [id number] 2.16.840.1.233229.3.579.2. 1286 1986 Unknown [id number] 2.16.840.1.648332.3.579.2. 1286 1986 Unknown [id number] 2.16.840.1.400852.3.579.2. 1286 1986 Unknown [id number] 2.16.840.1.934355.3.579.2. 1286 1959 Unknown [id number] Unknown [id number] Unknown Unknown [id number] 2.16.840.1.889284.3.579.2. 531 Social History Date Type Detail Facility Start: 02-07-2024 End: 05-10-2024 Sex Assigned At [facility] Other Start: 04-19-2023 End: 07-05-2023 Tobacco smoking status LAIS Smoker (finding) [facility] Start: 1985 Sex Assigned At Female F [facility] Start: 11-02-2023 End: 12-15-2023 Tobacco smoking status NHIS Ex-smoker [facility] End: 07-05-2023 History of tobacco use Cigarette Smoker [facility] Start: 11-02-2023 End: 12-15-2023 Tobacco use and exposure Smokeless tobacco non-user [facility] Start: 03-13-2024 End: 06-16-2024 Alcoholic beverage intake Ex-drinker (finding) [facility] Start: 02-07-2024 End: 05-10-2024 History of Social function [facility] Start: 10-20-2023 Tobacco Comment Smoked since 1997 [facility] Start: 1986 Sex assigned at Not on file [facility] Adolescent depressio n screening assessment 0 [facility] Start: 02-05-2015 Sex Female (finding) [facility] Goals Date Patient Goal Desired Activity /State Clinical Notes 04-07-2023 to 07-26-2024 MARGUERITE Manzanares - 07/26/2024 1:00 PM Dominique Aguero MD - 07/19/2024 11:10 AM Anthony Domínguez MD - 06/26/2024 8:45 AM Naeem Portillo, PhD - 05/23/2024 1:00 PM EST Note Date & Type Note Facility 07-26-2024 History of Present illness Narrative History: Pt was referred to ENT because of bilateral mastoiditis. Pt states the left ear sounds hollow and echoes. At times she also feels a vibration inside the ear. She hears a whooshing (liquid sound) in the right ear. She feels pressure in the middle of her forehead and behind her right eye. Pt's hearing fluctuates. Both ears pop, worse in the left ear. Otoscopic Exam: Right Ear: Partially occlusive cerumen Left Ear: Ear canal clear and TM intact Pure Tone Audiometry Right Ear: Normal hearing Left Ear: Normal hearing Speech Audiometry Right SRT = 25 dB and word discrimination score at 50 dBHL = 100% Left SRT = 10 dB and word discrimination score at 50 dBHL = 100% Tympanometry Right Ear: Type C tympanogram Left Ear: Type C tympanogram documented in this encounter [facility] 07-19-2024 History of Present illness Narrative Tran Reagan is a 39 y.o. female Raffaele Aguero MD presents with chief complaint of Thyroid Problem and Follow-up (SOME LAB /) HPI: IM : 07/2024 Follow-up visit 07/19/2024 she is on levothyroxine 25 mcg daily, no new lab, feel better after starting thyroid medication. Vit d 24 in 06/2024. HPI : 03/2024 New patient sent from Dr. Gagnon for subclinical hypothyroidism TSH 6.1, free T4 0.61 (0.61-1.1), she has symptoms with constipation not feeling well, fatigue, she has vertigo, plan to do MRI, she has 3 kids, no thyroid problem during , mom has thyroid problem, not sure she had been told she has Kalie not. SUBJECTIVE: MEDICATIONS: Current Outpatient Medications Medication Instructions acyclovir (ZOVIRAX) 400 mg, 2 times daily albuterol HFA 90 mcg/act inhaler 1 puff, 3 times daily PRN busPIRone (BUSPAR) 10 mg, 2 times daily calcium carbonate (Tums) 250 mg (nunam iqua 100 mg) chewable split tablet cholecalciferol (VITAMIN D-3) 25 mcg, Daily ibuprofen 200 mg, 2 times daily PRN ibuprofen 200 mg, Every 6 hours PRN levothyroxine (SYNTHROID, LEVOXYL) 25 mcg, Oral, Daily before breakfast LORazepam (Ativan) 1 MG tablet Take one tablet by mouth 30 to 60 minutes prior to MRI if needed for anxiety. ondansetron ODT (ZOFRAN-ODT) 4 mg, Every 8 hours PRN prednisoLONE (OrapRED) 15 MG/5ML solution topiramate (Topamax) 25 MG tablet Take 1 tablet (25 mg) by mouth at bedtime for 14 days, THEN 1 tablet (25 mg) 2 (two) times a day. Vitamin B-12 1,000 mcg, Sublingual, Daily Voquezna 20 mg, Daily RT ALLERGIES: Allergies Allergen Reactions Amitriptyline Fatigue, mood disturbance Lamictal [Lamotrigine] Rash Trileptal [Oxcarbazepine] Rash Past Medical History: Diagnosis Date Acid reflux Acute sinusitis 11/24/2017 Anxiety Asthma (CMS/HCC) 11/24/2017 BMI 30.0-30.9,adult COVID-19 09/2023 Dietary counseling and surveillance Dizziness Esophagitis Hiatal hernia Hypothyroidism, unspecified (CMS/HCC) Migraine (CMS/HCC) Subclinical iodine-deficiency hypothyroidism (CMS/HCC) Vitamin D deficiency, unspecified Past Surgical History: Procedure Laterality Date SECTION, CLASSIC CT ANGIOGRAM HEART CORONARY 01/31/2021 CT ANGIOGRAM TAVR 01/31/2021 DILATION AND CURETTAGE OF UTERUS x3 WISDOM TOOTH EXTRACTION REVIEW OF SYMPTOMS: 14 POINT OF SYSTEM REVIEWED AND NEGATIVE OBJECTIVE: Visit Vitals BP 120/80 Pulse 85 Resp 18 Ht 5' 2 Wt 168 lb BMI 30.73 kg/m Smoking Status Former BSA 1.83 m Physical Exam Constitutional: Appearance: Normal appearance. She is normal weight. HENT: Head: Normocephalic and atraumatic. Right Ear: External ear normal. Nose: Nose normal. Mouth/Throat: Pharynx: Oropharynx is clear. Eyes: Extraocular Movements: Extraocular movements intact. Pupils: Pupils are equal, round, and reactive to light. Cardiovascular: Rate and Rhythm: Normal rate and regular rhythm. Pulmonary: Effort: Pulmonary effort is normal. Abdominal: General: Abdomen is flat. Palpations: Abdomen is soft. Musculoskeletal: General: Normal range of motion. Skin: General: Skin is warm. Neurological: General: No focal deficit present. Mental Status: She is alert. Psychiatric: Mood and Affect: Mood normal. Behavior: Behavior normal. ASSESSMENT AND PLAN: Assessment/Plan Diagnoses and all orders for this visit: Subclinical hypothyroidism (CMS/HCC) - levothyroxine (Synthroid, Levoxyl) 25 MCG tablet; Take 1 tablet (25 mcg) by mouth in the morning. Take before meals. - Thyroglobulin Antibody; Future - Thyrotropin receptor antibody; Future - T3, free; Future - T4, free; Future - TSH; Future We will continue with levothyroxine 25 mcg daily we will check lab now and adjust. Vitamin D deficiency Last level 24, she is on 5000 units daily. Encounter for dietary consultation Diet and exercise reviewed with the patient Follow up in about 6 months (around 01/16/2025). documented in this encounter [facility] 06-26-2024 History of Present illness Narrative Images from the original note were not included. 39 yo [address] [place] [address] SUBJECTIVE: Patient ID: Tran Reagan is a 39 y.o. female. 39 yo WF with SQ mass , small ump since last 6 months and enlarging over the last 4 months especially, no pain involved, pt has gained 3#, pt concerned about cancer The following portions of the patient's history were reviewed and updated as appropriate: allergies, current medications, past family history, past medical history, past social history, past surgical history and problem list. REVIEW OF SYSTEMS: Review of Systems Constitutional: Positive for fatigue. PHYSICAL EXAMINATION: Vitals: 06/26/24 0849 BP: 124/76 Pulse: 68 Resp: 16 SpO2: 98% Weight: 76.2 kg (168 lb) Physical Exam Vitals and nursing note reviewed. Constitutional: Appearance: Normal appearance. HENT: Head: Normocephalic and atraumatic. Eyes: Extraocular Movements: Extraocular movements intact. Pupils: Pupils are equal, round, and reactive to light. Skin: General: Skin is warm and dry. Comments: Pea sized nodule SQ left anterior thigh Neurological: Mental Status: She is alert. Psychiatric: Mood and Affect: Mood normal. ASSESSMENT/PLAN: Zainab was seen today for mass. Diagnoses and all orders for this visit: Mass of left thigh - [facility] - [place], [place]; Future Follow-up: General surgery referral documented in this encounter [facility] 05-23-2024 History of Present illness Narrative Images from the original note were not included. Francisco J Portillo, PhD NEUROBEHAVIORAL STATUS EXAMINATION Tran Reagan is a 38 y.o. female referred for neuropsychological evaluation to assist with facilitating and informing medical differential diagnosis and clinical decision-making. The following information was obtained during an interview with the patient, as well as review of available records. PRESENTING PROBLEM AND HISTORY Stable to worsening struggles with memory, word finding, vestibular issues, and headache since coming down with COVID-19 in September 2023. Also reported exacerbating of baseline ADHD symptoms. Remains independent in ADLs, although does have shower assist/supervision due to the dizziness. Contribution around the home depends on the dizziness as well. Significant other manages finances as before. Has reminders for medication. No driving. No exercise due to the dizziness. Good overall sleep quality. Pain complaints include headache/vestibular migraine that occurs on/off throughout the day. No prior neurological history. 09/25/[address] and 04/10/24 brain MRI unremarkable. No family neurological history. Psychiatric history notable for bipolar disorder, PTSD, and anxiety. Meets with psychiatry. No history of alcohol/substance abuse. Stopped smoking cigarettes in July 2023. Smokes 2 cannabis joint/evening for sleep. [place] language [place]. Completed 9 years of formal education. Reported history of ADHD and dyslexia. The ADHD has been untreated for quite some time. Unemployed, worked in [employer] in the past. Resides with significant other of 6 years. Has 3 children from prior relationship. MEDICAL HISTORY/MEDICATION: Past Medical History: Diagnosis Date Acid reflux Acute sinusitis 11/24/2017 Anxiety Asthma ([facility]) 11/24/2017 COVID-19 09/2023 Dizziness Esophagitis Hiatal hernia Migraine ([facility]) MEDICATIONS: Current Outpatient Medications Medication Instructions acyclovir (ZOVIRAX) 400 mg, 2 times daily albuterol HFA 90 mcg/act inhaler 1 puff, 3 times daily PRN busPIRone (BUSPAR) 10 mg, Oral, 2 times daily calcium carbonate (Tums) 250 mg (nunam iqua 100 mg) chewable split tablet cholecalciferol (VITAMIN D-3) 25 mcg, Oral, Daily ibuprofen 200 mg, 2 times daily PRN ibuprofen 200 mg, Every 6 hours PRN levothyroxine (SYNTHROID, LEVOXYL) 25 mcg, Oral, Daily before breakfast LORazepam (Ativan) 1 MG tablet Take one tablet by mouth 30 to 60 minutes prior to MRI if needed for anxiety. ondansetron ODT (ZOFRAN-ODT) 4 mg, Every 8 hours PRN prednisoLONE (OrapRED) 15 MG/5ML solution topiramate (Topamax) 25 MG tablet Take 1 tablet (25 mg) by mouth at bedtime for 14 days, THEN 1 tablet (25 mg) 2 (two) times a day. Vitamin B-12 1,000 mcg, Sublingual, Daily Voquezna 20 mg, Daily RT INITIAL IMPRESSION AND PLAN: COVID-19 long hauler, memory loss, ADHD, bipolar disorder, PTSD, and anxiety: The patient will be scheduled for neuropsychological assessment, which will include tests for memory, reasoning, language, problem-solving, attention, and mood. Thank you for allowing me to participate in the care of this individual. Please contact me with any questions at [phone]. documented in this encounter [facility] 05-09-2024 History of Present illness Narrative Images from the original note were not included. Chief Complaint Patient presents with Dizziness Subjective Tran Reagan is a 38 y.o. female. History of Present Illness The patient presents today for follow up. She had an MRI of the brain and labs completed for review. She states she completed 2 sessions of vestibular therapy, and this seemed to exacerbate her dizziness, so she discontinued it. The patient continues to have intermittent dizziness. She describes it as a false sensation of spinning or swaying. It occurs almost daily. However, she can go 2 to 3 days without it at times. Her dizziness is aggravated by car rides, flipping through channels on the TV, reading, scrolling/swiping on her phone, and walking around tables. Symptoms last 15 minutes to several hours on average. The patient has approximately 15 migraine days per month. These are accompanied by visual disturbance, nausea, vomiting, and increased sensitivity to light and sound. They are not accompanied by weakness, slurred speech, numbness, or paresthesias. She has tried ibuprofen for her symptoms, and this is helpful at times. She believes her memory has been stable/unchanged since the prior appointment on 03/13/2024. She continues to have some word-finding difficulty and states, at times, a word will, come to me, hours later. She sleeps well most nights and denies apneic episodes while asleep. She denies any further concerns. The patient reports a positive family history of multiple sclerosis in two family members on her father's side. Review of Systems Constitutional: Negative for appetite change, chills, fatigue, fever and unexpected weight change. HENT: Negative for trouble swallowing and voice change. Eyes: Negative for visual change, double vision or loss of vision Respiratory: Negative for cough, shortness of breath and wheezing. Cardiovascular: Negative for chest pain and palpitations. Gastrointestinal: Negative for abdominal pain and blood in stool. Musculoskeletal: Negative for arthralgias, gait problem and myalgias. Neurological: Positive for dizziness, speech difficulty (word-finding difficulty) and headaches (associated with nausea, vomiting, photophobia, and phonophobia). Negative for tremors, seizures, syncope, facial asymmetry, weakness, light-headedness and numbness. Positive for subjective memory impairment Psychiatric/Behavioral: Positive for confusion. Negative for agitation, hallucinations and suicidal ideas. The patient is not nervous/anxious. Home Medication List acyclovir 400 MG tablet; Commonly known as: Zovirax albuterol HFA 90 mcg/act inhaler busPIRone 10 MG tablet; Commonly known as: Buspar calcium carbonate 250 mg (nunam iqua 100 mg) chewable split tablet; Commonly known as: Tums cholecalciferol 25 MCG (1,000 UT) capsule; Commonly known as: Vitamin D-3 ibuprofen 100 MG/5 ML suspension levothyroxine 25 MCG tablet; Commonly known as: Synthroid, Levoxyl ondansetron ODT 4 MG disintegrating tablet; Commonly known as: Zofran-ODT prednisoLONE 15 MG/5ML solution; Commonly known as: OrapRED Voquezna 20 MG tablet; Generic drug: Vonoprazan Fumarate Past Medical History: Diagnosis Date Acid reflux Acute sinusitis 11/24/2017 Anxiety Asthma (CMS/HCC) 11/24/2017 COVID-19 09/2023 Dizziness Esophagitis Hiatal hernia Migraine (CMS/HCC) Past Surgical History: Procedure Laterality Date SECTION, CLASSIC CT ANGIOGRAM HEART CORONARY 01/31/2021 CT ANGIOGRAM TAVR 01/31/2021 DILATION AND CURETTAGE OF UTERUS x3 WISDOM TOOTH EXTRACTION Family History Problem Relation Name Age of Onset Diabetes Mother Stroke Mother Cancer Father Liver Stroke Brother Diabetes Maternal Grandmother Hypertension Maternal Grandmother Stroke Maternal Grandmother Heart disease Maternal Grandmother Cancer Maternal Grandfather Lung Diabetes Paternal Grandfather Social History Tobacco Use Smoking status: Former Current packs/day: 0.00 Types: Cigarettes Quit date: 07/2023 Years since quittin.8 Smokeless tobacco: Never Tobacco comments: Smoked since 1997 Substance Use Topics Alcohol use: Not Currently Allergies: Amitriptyline, Lamictal [lamotrigine], and Trileptal [oxcarbazepine] Vitals: 05/09/24 1427 BP: 144/90 Pulse: 89 Body mass index is 30.91 kg/m . weight: 169 lb Neurologic exam: Mental status and general appearance: Awake and alert with unlabored respirations. Oriented to person, place, and time. Recent and remote memory are intact. Speech is clear and fluent without aphasia. Speech is non-dysarthric. Attention and concentration are normal. Fund of knowledge is appropriate for level of education. Cranial nerves: CN II: Visual acuity is normal. Visual way full to confrontation. CN III, IV, : Pupils are equal, round, and reactive to light. Extraocular movements intact. No ptosis present. CN V: Facial sensation is normal. CN VII: Full and symmetric facial movement. CN VIII: Hearing is normal to finger rub bilaterally. CN IX and X: Palate elevates symmetrically. CN XI: Shoulder shrug is normal bilaterally. CN XII: Tongue is midline without atrophy or fasciculation. Motor: RUE strength deltoid , biceps , triceps , wrist extensors , wrist flexor , and cook 3 pastry strength 5/5. LUE strength deltoid , biceps , triceps , wrist extensors , wrist flexor , and cook 3 pastry strength 5/5. RLE strength iliopsoas, quadriceps, tibialis anterior, plantar flexion, and dorsiflexion strength 5/5. LLE strength iliopsoas, quadriceps, tibialis anterior, plantar flexion, and dorsiflexion strength 5/5. Tone and bulk are normal. Sensory: Sensation is intact to light touch throughout all four extremities. Sensation is intact to temperature in all extremities. Reflexes: RUE biceps reflex 2+ , brachioradialis reflex 2+. LUE biceps reflex 2+ , brachioradialis reflex 2+. RLE Knee reflex 2+. LLE Knee reflex 2+. Coordination: [id number] testing normal. Rapid alternating movements are normal. Gait: Normal. Review and summary of old records: MRI of the brain w and w/o contrast at [facility] on 04/10/2024: Bilateral mastoid air cell effusions. Otherwise normal MRI of the brain. - Patient states her primary care provider referred her to ENT, and she has an appointment with Dr. Parker in 08/2024. Labs at [facility] on 03/20/2024: TSH 3.12. Free T4 0.76. Free T3 0.96. Thyroperoxidase ab 655 and thyroglobulin ab 4 (high). Vitamin B12 187. Vitamin D 24 (low). HIV 1 and 2 ab nonreactive. Syphilis nonreactive. Lyme total negative. VNG test on 01/27/2024: There is no evidence of significant peripheral vestibular dysfunction. There is evidence of significant central vestibular dysfunction. Defective pursuit denotes a DULSER lesion. Bilateral or symmetric defect and pursuits imply dysfunction of the cerebellum, striate cortex, or brainstem. An adequate suppression of torsion swing denotes central vestibular dysfunction. CT of the brain without contrast on 09/25/2023: No evidence of active disease or acute disease. Comparison to May 2019. Assessment/Plan Diagnoses and all orders for this visit: Vertigo Vestibular migraine (CMS/HCC) The patient reports recurrent vestibular symptoms lasting minutes to hours. These can often be triggered by visual or motion stimuli. She also has a history of migraines. VNG test on 01/27/24 revealed evidence of significant central vestibular dysfunction without evidence of significant peripheral vestibular dysfunction. CT of the brain on 09/25/23 was unremarkable for acute intracranial pathology. MRI of the brain on 04/10/24 was unremarkable and did not identify evidence of demyelinating disease. Given the clinical presentation and test results, I have suspicion for vestibular migraine. I believe the patient may benefit from preventative treatment given the frequency of her symptoms and the impact on her quality of life. Amitriptyline was not tolerated due to fatigue and mood disturbance previously. Will trial an alternative medication. PLAN: - Amitriptyline has been stopped - Vestibular therapy has been stopped (patient does not believe this provided subjective benefit and actually believes it worsened her symptoms) - Start topiramate 25 mg tablet - take 1 tablet by mouth once daily at bedtime for 2 weeks. If well tolerated without side effects, may increase dose to 1 tablet by mouth twice a day after 2 weeks. I counseled the patient on potential side effects including but not limited to SJS. She verbalizes understanding and wishes to proceed. I advised her to notify the office if she develops any adverse effects - I encouraged adequate hydration, healthy diet, and sleep hygiene Cognitive impairment The patient reports subjective cognitive impairment since she was diagnosed with COVID-19 in September 2023. She lives at home and remains independent with all ADLs but reports ongoing difficulty with word-finding and memory. This does not seem to significantly affect her functional ability. MRI of the brain on 04/10/24 did not identify a cause for her symptoms. Labs on 03/20/24 identified low normal vitamin B12 and low vitamin D. HIV, Lyme, and syphilis were negative. Will investigate this further. PLAN: - Referral for neuropsychological assessment for detailed evaluation of the patient's cognitive function - Start vitamin B12 1,000 mcg sublingual once a day for low normal vitamin B12. I counseled the patient on potential side effects. She verbalizes understanding and wishes to proceed - She is taking vitamin D supplementation (prescribed by PCP) - I recommended no driving until otherwise directed, as the patient does not feel comfortable to do so Diagnosis and treatment options discussed in detail. All questions answered. The patient verbalizes understanding and is agreeable to the plan. Discussion in layman's terms. Follow up in the office within 1 month; sooner if needed for new or worsening symptoms. Riri Acevedo NP [facility] Advanced Neurology documented in this encounter [facility] 05-09-2024 Instructions Riri Acevedo NP - 05/09/2024 2:20 PM EST - Referral for neuropsychological evaluation - Start vitamin B12 1,000 mcg sublingual once a day - Start topiramate as directed documented in this encounter [facility] 03-22-2024 Telephone encounter Note Prescription sent. [facility] 03-22-2024 Miscellaneous Notes Prescription sent. Patient is in understanding, and is agreeable. She states she will have someone take her to and from the MRI. Patient would like it sent to the [facility]. If the patient has no history of drug abuse, I could send in one tablet of lorazepam (1 mg) for pre-procedural anxiety prior to her MRI scan. The patient would take 1 tablet of lorazepam by mouth as needed for anxiety 30 to 60 minutes prior to the MRI. Potential side effects of lorazepam include fatigue, drowsiness, cognitive effects, dizziness, behavioral changes, and respiratory issues. The patient would need transportation to and from the MRI. She should not drive to or from the MRI and should not operate heavy machinery the day of taking lorazepam. She should also not take this medication with alcohol. Can you please let her know? I will send in the prescription if she is agreeable. Patient called asking if there was medication she can take for the MRI, wants something for anxiety or to sedate her due to her anxiety. Patient is also in understanding to stop taking the amitriptyline and has a follow up scheduled for April 19, 2024. Please advise the patient to stop taking amitriptyline. We can discuss alternative medications at follow-up. I believe this would best be discussed at an in-person appointment so vital signs can be obtained, and a more detailed physical exam can be performed prior to consideration of other medication options. Patient called and stated that since being on the amitriptyline she has been very aggravated, tired, and crying over everything. She is wondering if there is any other medications she could try. She did not take it last night and she woke up feeling rested documented in this encounter [facility] 03-22-2024 Telephone encounter Note Patient is in understanding, and is agreeable. She states she will have someone take her to and from the MRI. Patient would like it sent to the [facility]. [facility] 03-22-2024 Telephone encounter Note If the patient has no history of drug abuse, I could send in one tablet of lorazepam (1 mg) for pre-procedural anxiety prior to her MRI scan. The patient would take 1 tablet of lorazepam by mouth as needed for anxiety 30 to 60 minutes prior to the MRI. Potential side effects of lorazepam include fatigue, drowsiness, cognitive effects, dizziness, behavioral changes, and respiratory issues. The patient would need transportation to and from the MRI. She should not drive to or from the MRI and should not operate heavy machinery the day of taking lorazepam. She should also not take this medication with alcohol. Can you please let her know? I will send in the prescription if she is agreeable. [facility] 03-22-2024 Telephone encounter Note Patient called asking if there was medication she can take for the MRI, wants something for anxiety or to sedate her due to her anxiety. Patient is also in understanding to stop taking the amitriptyline and has a follow up scheduled for April 19, 2024. [facility] 03-22-2024 Telephone encounter Note Please advise the patient to stop taking amitriptyline. We can discuss alternative medications at follow-up. I believe this would best be discussed at an in-person appointment so vital signs can be obtained, and a more detailed physical exam can be performed prior to consideration of other medication options. [facility] 03-22-2024 Telephone encounter Note Patient called and stated that since being on the amitriptyline she has been very aggravated, tired, and crying over everything. She is wondering if there is any other medications she could try. She did not take it last night and she woke up feeling rested [facility] 03-13-2024 History of Present illness Narrative Images from the original note were not included. Riri Acevedo NP Chief Complaint Patient presents with Dizziness Migraine Subjective Tran Reagan is a 38 y.o. female. HPI The patient presents today for follow up. She presents via a Televisit. She had a VNG completed for review. She was evaluated by vestibular therapy (Dr. Melquiades Acosta), and he recommended she trial treatment for vestibular migraine, as he suspected this was the primary cause of her vertigo. The patient reports intermittent dizziness with onset in September 2023. Her dizziness has progressively worsened since onset. She describes it as a false sensation of spinning. She states it can feel like, someone is shaking me back and forth, at times. It occurs at least 5 times per day. Symptoms last a few seconds up to several hours and then resolve. The patient's dizziness can be provoked by car rides, showering, speaking, leaning forward, looking up, and standing up too quickly from a seated position. She states, even talking for longer than a half hour, I end up getting dizzy. She denies swallowing difficulty, double vision, or loss of consciousness. She states her vision will seem like its, zooming in and zooming out, at times when she is dizzy. She denies chest pain, shortness of breath, or palpitations. She stays well hydrated and drinks at least five 16.9 ounce bottles of water per day. The patient also has migraines. These typically occur every day, but she states she has a least 1 per week. They are located behind the eyes or in the frontal region. She describes them as sharp, dull, pressure, or squeezing. They are associated with nausea, vomiting, and increased sensitivity to light and sound. She often wears sunglasses due to photophobia. The patient also reports word-finding difficulty and memory difficulty. This affects both her short-term and long-term memory. Onset was in September 2023. The patient states she can watch a movie and later forget she watched it. She states she has several notebooks to help her recall things. She lives at home with her fiance. She is independent with all activities of daily living but has someone with her when she showers due to dizziness. She states her fiance has to remind her to take her medications at times. She stopped driving due to forgetfulness. The patient was adopted but states two family members on her father's side have multiple sclerosis. She is wondering about work up for this. She also mentions intermittent numbness and tingling in the hands, feet, and arms. She denies any further concerns. Review of Systems Constitutional: Negative for appetite change, chills, fatigue, fever and unexpected weight change. HENT: Negative for trouble swallowing and voice change. Eyes: Negative for visual change, double vision or loss of vision Respiratory: Negative for cough, shortness of breath and wheezing. Cardiovascular: Negative for chest pain and palpitations. Gastrointestinal: Negative for abdominal pain and blood in stool. Musculoskeletal: Negative for arthralgias, gait problem and myalgias. Neurological: Positive for dizziness, speech difficulty (word finding difficulty), numbness and headaches (associated with nausea, vomiting, photophobia, and phonophobia). Negative for tremors, seizures, syncope, facial asymmetry, weakness and light-headedness. Positive for subjective memory impairment Psychiatric/Behavioral: Positive for confusion. Negative for agitation, hallucinations and suicidal ideas. The patient is not nervous/anxious. Medication List albuterol HFA 90 mcg/act inhaler busPIRone 10 MG tablet; Commonly known as: Buspar calcium carbonate 250 mg (nunam iqua 100 mg) chewable split tablet; Commonly known as: Tums ibuprofen 200 MG tablet Voquezna 20 MG tablet; Generic drug: Vonoprazan Fumarate Past Medical History: Diagnosis Date Acid reflux Acute sinusitis 11/24/2017 Anxiety Asthma ([facility]) 11/24/2017 COVID-19 09/2023 Dizziness Migraine ([facility]) Past Surgical History: Procedure Laterality Date SECTION, CLASSIC CT ANGIOGRAM HEART CORONARY 01/31/2021 CT ANGIOGRAM TAVR 01/31/2021 DILATION AND CURETTAGE OF UTERUS x3 WISDOM TOOTH EXTRACTION Family History Problem Relation Name Age of Onset Diabetes Mother Stroke Mother Cancer Father Liver Stroke Brother Diabetes Maternal Grandmother Hypertension Maternal Grandmother Stroke Maternal Grandmother Heart disease Maternal Grandmother Cancer Maternal Grandfather Lung Diabetes Paternal Grandfather Social History Tobacco Use Smoking status: Former Current packs/day: 0.00 Types: Cigarettes Quit date: 07/2023 Years since quittin.6 Smokeless tobacco: Never Tobacco comments: Smoked since 1997 Substance Use Topics Alcohol use: Not Currently Allergies: Lamictal [lamotrigine] and Trileptal [oxcarbazepine] There were no vitals filed for this visit.There is no height or weight on file to calculate BMI. Neurologic exam: Mental status: Awake and alert with unlabored respirations. Oriented to person, place and time. Recent and remote memory are primarily intact. Speech is clear and non-dysarthric. Speech is fluent without aphasia. Attention and concentration are normal. Fund of knowledge is appropriate for level of education. Exam was limited, as this was a Televisit. Cranial nerves: CN III, IV, : Extraocular movements intact. No ptosis present. CN VII: Full and symmetric facial movement. CN IX and X: Palate elevates symmetrically. CN XI: Shoulder shrug is normal bilaterally. CN XII: Tongue is midline without atrophy or fasciculation. Motor: Strength appears at least 3/5 in all 4 extremities. Coordination: Wsfirl-lf-rsio testing normal. Rapid alternating movements are normal. Review and summary of old records: VNG test on 01/27/2024: There is no evidence of significant peripheral vestibular dysfunction. There is evidence of significant central vestibular dysfunction. Defective pursuit denotes a DULSER lesion. Bilateral or symmetric defect and pursuits imply dysfunction of the cerebellum, striate cortex, or brainstem. An adequate suppression of torsion swing denotes central vestibular dysfunction. CT of the brain without contrast on 09/25/2023: No evidence of active disease or acute disease. Comparison to May 2019. Assessment/Plan Diagnoses and all orders for this visit: Vertigo Cognitive impairment Numbness The patient was diagnosed with COVID-19 infection in September 2023. Since that time, she reports episodic vertigo and subjective cognitive impairment. Also, with intermittent numbness and paresthesias in the bilateral hands, feet, and arms. Her neurologic examination, though limited today via televisit, is normal. CT of the brain on 09/25/23 was unremarkable for acute intracranial pathology. VNG test on 01/27/24 revealed evidence of significant central vestibular dysfunction without evidence of significant peripheral vestibular dysfunction. The patient states she has taken buspirone for six years and denies any recent doses increase, therefore, I find this unlikely to be contributory to any of her symptoms. I believe further investigation is warranted. The patient reports a positive family history of multiple sclerosis in two family members on her father's side and certainly, demyelinating process cannot be ruled out in the patient without work up. PLAN: - I reviewed VNG results with the patient. I informed the patient the patient that central vestibular dysfunction can be secondary to things such as migraines, stroke, brain tumor, and multiple sclerosis - MRI of the brain to assess for an intracranial process which may be contributing to the patient's symptoms - Laboratory evaluation for cognitive impairment (vitamin B12, Lyme Ab, RPR, HIV) - I recommended NO DRIVING until otherwise directed, as the patient does not feel comfortable to do so. She verbalizes understanding - Follow up with vestibular therapy per their recommendations Vestibular migraine ([facility]) The patient reports recurrent, episodic vestibular symptoms lasting seconds to hours. This can often be triggered by visual or motion stimuli. She also has a history of migraine. This raises suspicion for vestibular migraine. She would like to trial preventative treatment at today's appointment, as her dizziness can significantly interfere with her activities and quality of life when present. PLAN: - Start amitriptyline 10 mg by mouth once a day at bedtime for migraine prevention. I counseled the patient on potential side effects (including but not limited to cardiovascular effects, suicidal ideations, anticholinergic effects, increased risk for bleeding, DULSER depression, and orthostatic hypotension). The patient verbalizes understanding and wishes to proceed. She denies history of cardiac disease or arrhythmia This visit has been rescheduled as a video visit. The video visit, including two-way audio and video communication, is in lieu of an in-person visit. The patient provided verbal consent to use the video visit. I spent approximately 25 minutes on this call conducting an interview, performing a limited exam by video, with greater than 50% spent educating the patient on my assessment and plan. Provider Location: [facility] Advanced Neurology in [place], [place]. Diagnosis and treatment options discussed in detail. All questions answered. The patient verbalizes understanding and is agreeable to the plan. Discussion in layman's terms. Follow up in the office within 1 month; sooner if needed for new or worsening symptoms. Riri Acevedo NP [facility] Neurology documented in this encounter [facility] 03-13-2024 Instructions Riri Acevedo NP - 03/13/2024 1:40 PM EDT - MRI of the brain [facility] - Laboratory evaluation (vitamin B12, Lyme Ab, RPR, HIV) - fax to [facility] - Schedule for follow up in 1 month documented in this encounter [facility] 04-19-2023 Procedure note [facility] 04-07-2023 Evaluation note Encounter Date Diagnosis Assessment Notes Apr, Dysphagia (ICD-10 - R13.10) Pt states she has had swallowing for about a year. Pt to proceed with EGD Pt to follow up based on results of procedure. Pt advised to chew food up very well. Pt informed of chin tuck maneuver Apr, GERD (gastroesopha geal reflux disease) (ICD-10 - K21.9) Pt states she has had this issue for about a year. [facility] [employer] Other Evaluation noteNo assessment information available [facility] Work Phone: Evaluation noteNo InformationNortHospital of [facility] [employer] Other Evaluation note* Diagnosis Vertigo- Primary Dizziness and giddiness Vestibular migraine (CMS/HCC) Cognitive impairment Unspecified persistent mental disorders due to conditions classified elsewhere documented in this encounter [facility] HealthcareEvaluation note* Diagnosis Cognitive impairment- Primary Unspecified persistent mental disorders due to conditions classified elsewhere ADHD (attention deficit hyperactivity disorder), inattentive type (CMS/HCC) Bipolar affective disorder, remission status unspecified (CMS/HCC) PTSD (post-traumatic stress disorder) (CMS/HCC) Posttraumatic stress disorder Generalized anxiety disorder (CMS/HCC) Generalized anxiety disorder COVID-19 long hauler documented in this encounter [facility] HealthcareEvaluation note* Diagnosis Anxiety- Primary Anxiety state, unspecified documented in this encounter [facility] HealthcareEvaluation note* Diagnosis Vertigo- Primary Dizziness and giddiness Cognitive impairment Unspecified persistent mental disorders due to conditions classified elsewhere Numbness Disturbance of skin sensation Vestibular migraine (CMS/HCC) documented in this encounter [facility] HealthcareEvaluation note* Diagnosis Mass of left thigh- Primary [facility] Diagnosis Subclinical hypothyroidism (CMS/HCC)- Primary Other specified acquired hypothyroidism Vitamin D deficiency Encounter for dietary consultation [facility] Diagnosis Mastoiditis, bilateral- Primary documented in this encounter [facility] Healthcare[facility] and physical note Author Richard Lopez [facility] April 19, 2023 1:24pm Note Date/Time April 19, 2023 1 :24pm [facility] [address] [place] [address] Gastroenterology H&P Signed Patient: Tran Reagan MR#: [id number] : 1985 Acct:[id number] Age/Sex: 37 / F Adm Date: 3 Loc: Room: Type: [facility] Attending Dr: Richard Lopez MD Copies to: DO Richard Interiano MD~ Date of Service: 04/19/2023 HISTORY & PHYSICAL: Patient's history with special attention to the cardiovascular, pulmonary systems and the current problem was reviewed with the patient immediately prior to the procedure. Present medications and doses reviewed in the EMR. Allergies and pertinent laboratory tests were also reviewedat this time in the EMR. The physical examination, as below, was then performed. Indication, assessment and HPI: 37-year-old female presents for EGD to evaluate dysphagia Family history of GI malignancy? No PHYSICAL EXAMINATION Mouth and Pharynx : Moist mucus membranes, normal dentition Cardiac: Regular rate, regular rhythm Pulmonary: Clear to auscultation bilaterally, no wheezing Neurological: Alert and oriented x3, no focal deficits noted Abdomen: Abdomen soft, non-tender REVIEW OF SYSTEMS Constitutional: Denies malaise, fevers Cardiovascular: Denies chest pain, palpitations Respiratory: Denies shortness of breath, wheezing Gastrointestinal: Per HPI Genitourinary: Denies dysuria, polyuria Musculoskeletal: Denies joint swelling, joint stiffness Neurological: Denies numbness, tingling Integumentary: Denies rashes, skin lesions Endocrine: Denies fatigue, weight loss Written informed consent obtained from the patient. Risks (including but not limited to perforation, infection, bloating, bleeding, need for emergent surgeryand loss of life), benefits and alternatives explained and questions answered. The patient verbalized understanding. Based on history patient is an appropriate candidate for the procedure. Richard Lopez MD Documented By: Richard Lopez MD 04/19/23 1324 Signed By: <Electronically signed by Richard Lopez MD> 04/19/23 1324 [facility] Work Phone: History general Narrative - Reported* Type Description Date Medical History high cholesterol Surgical History dnc Surgical History wisdom teeth Surgical History C section Surgical History endoscopy Hospitalization History see above [facility] Other Hospital Discharge instructions Additional Instructions DISCHARGE INSTRUCTIONS FOR UPPER ENDOSCOPY WHAT TO EXPECT: - You may feel full, gassy or cramping after your procedure. In some cases, this may be from a few hours to a day. Walking may help relieve the discomfort. - Your throat may feel sore today from the scope that the doctor passed through your throat to visualize your stomach. Take a throat lozenge or suck on ice to ease the discomfort. - You may notice some streaks of blood in your sputum if the doctor has taken a biopsy. - You should begin to recover from anesthesia within 1 hour of the procedure, however may feel groggy for the next 24 hours. DO's AND DON'Ts: - Call your doctor right away if you have a hard abdomen, severe pain, vomiting or if you cough up large amounts of blood. - Call your doctor if you develop any rashes, hives or difficulty breathing. - If you take 81 mg aspirin for your heart it is safe to resume this medication. - If you take other blood thinner medications your doctor will instruct you when these can safely be resumed. - Do NOT drive for 24 hours. - Do NOT operate machinery such as power tools, lawn mowers, snow blowers, sewing machines, etc. for 24 hours. - Avoid alcoholic beverages and drugs for allergies, nerves, or sleep. - Do NOT stay alone. Do NOT leave your child unattended. - Do NOT make important personal or business decisions or sign any legal documents. - Eat solid foods and drink liquids in smaller amounts than usual until normal appetite returns. If you should experience an upset stomach, liquids high in sugar content (soda, Ariel-Aid, non-acid juices) are recommended. - Do NOT smoke. - Do take it easy today. You need not stay in bed, but avoid strenuous activities such as jogging or working out. FOLLOW UP & RECOMMENDATIONS: -Start esomeprazole (Nexium) 40 mg once daily. Take this 30 minutes before your first meal of the day. -Make sure you take this medication every day, do not skip doses even if you you are having no reflux symptoms. -The GI office will schedule you a follow-up appointment. -Bring your new medication to your follow-up appointment. -Notify the doctor if you have any problems. -Follow up with PCP. -Office number [phone].[facility] Work Phone: Instructions* Attachments The following attachments cannot be sent through Care Everywhere. * Lipoma (Bahraini) [facility] for [facility] Narrative* Neuropsych Testing (Routine) - Authorized Specialty Diagnoses / Procedures Referred By Contact Referred To Contact Neuropsychology / Neurology Diagnoses Per [place] Procedures NEUROPSYCHOLOGICAL ASSESSMENT Riri Acevedo NP [address] [place] [phone] Phone: tel: Francisco J Portillo, PhD [address] [place] [address] Phone: tel: fax: Referral ID Status Reason Start Date Expiration Date Visits Requested Visits Authorized [id number] Authorized Co-Managemen t of Problem 4 11/19/2024 2 2 [facility] Summary Purpose Family History No Family History Records Found Relationship Condition Age at Onset Recorded Date/T sae Not Specified Diabetes mellitus Unknown Disorder of thyroid Unknown father Malignant neoplasm Unknown Advance Directives No Advanced Directives Records Found Advance Directive Response Recorded Date/ Time Advance Directives No April 14, 2023 10:52am Chief Complaint and Reason for Visit Chief Complaint Dysphagia Reason for Referral Specialty Diagnoses / Procedures Referred By Contac t Referred To Contact Diagnoses Vertigo Cognitive impairment Numbness Procedures MR brain w and wo contrast routine Riri Acevedo NP [address] [place] [id number] Referral ID Status Reason Start Date Expiration Date V isits Requested Visits Authorized [id number] Pending Review 03/14/2024 09/10/2024 1 1 Additional Source Comments INFORMATION SOURCE (unrecogn ized section and content) DATE CREATED AUTHOR 12/30/2017 [facility] DATE CREATED AUTHOR AUTHOR'S ORGANIZ ATION [facility] DATE CREATED AUTHOR AUTHOR'S ORGANIZ ATION 04/27/2023 [facility] DATE CREATED AUTHOR AUTHOR'S ORGANIZ ATION 03/24/2024 [facility] DATE CREATED AUTHOR AUTHOR'S ORGANIZ ATION 07/06/2024 [facility] DATE CREATED AUTHOR AUTHOR'S ORGANIZ ATION 07/28/2024 [facility] EPIC DATE CREATED AUTHOR AUTHOR'S ORGANIZ ATION 08/26/2024 [facility] REASON FOR VISIT (unrecogniz ed section and content) Reason Comments Dizziness Reason Comments Dizziness Migraine Reason Comments Mass Left leg Reason Comments Thyroid Problem Follow-up SOME LAB 2/5 Care Teams (unrecognized sec tion and content) Team Status: Active Member Role Status Dates Philly Calderon DO Primary Care Provider Active Team Status: Inactive Member Role Status Dates Richard Lopez MD Attending Provider Active Philly Calderon DO Primary Care Provider Active 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 Greaser Operator Relationship Specialty Start Date End Date Anson Domínguez MD [address] [place] [address] PCP - General Family Medicine 09/13/23 Brim Greaser Operator Relationship Specialty Start Date End Date Anson Domínguez MD [address] [place] [address] PCP - General Family Medicine 09/13/23 Brim Greaser Operator Relationship Specialty Start Date End Date Anson Domínguez MD [address] [place] [address] PCP - General Family Medicine 09/13/23 Brim Greaser Operator Relationship Specialty Start Date End Date Anson Domínguez MD [address] [place] [address] PCP - General Family [facility] 09/13/23 Brim Greaser Operator Relationship Specialty Start Date End Date Anson Domínguez MD [address] [place] [address] PCP - General Family Medicine 09/13/23 Brim Greaser Operator Relationship Specialty Start Date End Date Anson Domínguez MD [address] [place] [address] PCP - General Family Medicine 09/13/23 Brim Greaser Operator Relationship Specialty Start Date End Date Anson Domínguez MD [address] [place] [address] PCP - General Family Medicine 03/29/24 Brim Greaser Operator Relationship Specialty Start Date End Date Anson Domínguez MD [address] [place] [address] PCP - General Family Medicine 09/13/23 Brim Greaser Operator Relationship Specialty Start Date End Date Anson Domínguez MD [address] [place] [address] PCP - General Family [facility] 09/13/23 Brim Greaser Operator Relationship Specialty Start Date End Date Anson Domínguez MD [address] [place] [address] PCP - General Family [facility] 09/13/23 Brim Greaser Operator Relationship Specialty Start Date End Date Anson Domínguez MD [address] [place] [address] PCP - General Family [facility] 09/13/23 FOR RECORDS PERTAINING TO PATIENTS WHO ARE OR HAVE BEEN ENROLLED IN A CHEMICAL DEPENDENCY/SUBSTANCEABUSE PROGRAM, SOME INFORMATION MAY BE OMITTED. This clinical summary was aggregated from multiple sources. Caution should be exercised in using it in the provision of clinical care. This summary normalizes information from multiple sources, and as a consequence, information in this document may materially change the coding, format and clinical context of patient data. In addition, data may be omitted in some cases. CLINICAL DECISIONS SHOULD BE BASED ON THE PRIMARY CLINICAL RECORDS. [facility] [employer] [facility]. provides no warranty or guarantee of the accuracy or completeness of information in this document.
[2024-09-05 11:22] VITALS: BP 140/90; PULSE 94; TEMP 37; O2SAT 98; BMI 29.6
--- NOTE | 2024-09-05 12:51 | ED.GENADUL1 ---
Documented by User: MICHAEL Wilhelm 09/05/24 15:37 HPI HPI - General Adult General Chief complaint: Headache Stated complaint: MIGRAINE Time Seen by Provider: 09/05/24 12:50 Source: patient Mode of arrival: walk-in Limitations: no limitations History of Present Illness HPI narrative: Patient is a 39-year-old female with a history of migraines who presents to the emergency department for increasing headache for the last 2 weeks. Patient states she was seen 6 months ago at the [facility] emergency department and was diagnosed with a bilateral mastoid effusion. She states she followed up with her neurologist and was referred to an ENT but states that they keep pushing back the appointment from the office. For the last 2 weeks she has had increasing pain to the right denominational and right side of the head which she states is not typical for her regular migraines. She states she is concerned she has mastoiditis. She has been using ibuprofen without improvement. She has no concern for . She has had no fevers, visual changes, upper respiratory symptoms, vomiting. She feels swollen behind her right ear. Related Data Previous Rx's ?Medication ?Instructions ?Recorded naproxen 125 mg/5 mL oral 500 mg (20 mL) PO BID PRN pain 09/05/24 suspension (Naprosyn) #473 mL ondansetron 4 mg disintegrating 4 mg PO Q6H PRN nausea and 09/05/24 tablet vomiting #12 tabs prednisolone 15 mg/5 mL oral 60 mg (20 mL) PO BID 3 days #120 mL 09/05/24 solution Allergies Allergy/AdvReac Type Severity Reaction Status Date / Time lamotrigine Allergy Unknown Unknown Verified 09/05/24 11:22 oxcarbazepine (From Allergy Unknown Unknown Verified 09/05/24 11:22 Trileptal) Opioid HPI Opioid Management Most Recent Opioid Data: Last Pain Scale 5 09/05/24 14:30 09/05/24 Last ED Pain Assessment 09/05/24 14:30 Last MAR Pain Assessment 09/05/24 13:27 Review of Systems ROS Constitutional Denies: fever or chills Ears, nose, mouth, and throat Reports: ear pain; Denies: throat pain or neck pain Cardiovascular Denies: chest pain Respiratory Denies: shortness of breath or cough Gastrointestinal Denies: nausea or vomiting Integumentary/Breast Denies: rash Neurological Reports: headache; Denies: numbness in extremities or weakness in extremities Hematologic/Lymphatic Denies: easy bruising or easy bleeding PFSH PFS Social History Little interest or pleasure in doing things: not at all Feeling down, depressed, or hopeless: not at all Exam Narrative Exam Narrative: Gen.: Awake, alert, in no distress Head: Normocephalic, atraumatic ENT: Moist mucous membranes, bilateral TMs clear, mild tenderness posterior to the right ear with no appreciable swelling/erythema/fluctuance. C-spine nontender, no nuchal rigidity Respiratory: No respiratory distress, lungs clear bilaterally Cardio: Regular rate and rhythm Extremities: Moves extremities equally Psych: Normal mood and affect Neuro: No focal neuro deficit Skin: Warm, dry, intact Constitutional Vital Signs, click to edit/add: Last Vital Signs Temp 98.6 F 09/05/24 11:22 Pulse 88 09/05/24 15:39 Resp 18 09/05/24 15:39 BP 112/83 09/05/24 15:39 Pulse Ox 98 09/05/24 11:22 O2 Del Method Room Air 09/05/24 11:22 Course Vital Signs Vital signs: Vital Signs Temperature 98.6 F 09/05/24 11:22 Pulse Rate 94 H 09/05/24 11:22 Respiratory Rate 20 09/05/24 11:22 Blood Pressure 140/90 09/05/24 11:22 Pulse Oximetry 98 09/05/24 11:22 Oxygen Delivery Method Room Air 09/05/24 11:22 Temperature 98.6 F 09/05/24 11:22 Pulse Rate 88 09/05/24 15:39 Respiratory Rate 18 09/05/24 15:39 Blood Pressure 112/83 09/05/24 15:39 Pulse Oximetry 98 09/05/24 11:22 Oxygen Delivery Method Room Air 09/05/24 11:22 Medical Decision Making MDM Narrative Medical decision making narrative: This patient was treated with IV fluids, Reglan, Benadryl, Toradol. CT of the head and CT of the facial bones show opacification of the left mastoid air cells, however the patient has pain on the right side. I discussed this with Dr. Franklin ([id number]) for ENT who the patient is supposed to follow-up with, and he will see the patient for follow-up with no other recommendations. He states that the opacified mastoid cells are a common finding in any patient with an ear infection in the last year, no additional treatment recommended. Return to the ER if symptoms change or worsen. Headache is down to 5/10 and the patient is resting comfortably on reevaluation. Home medications given for headache control, follow-up with ENT as scheduled SUPERVISED APC VISIT, PHYSICIAN ATTESTATION: Based on the medical record the care appears appropriate. ? Medical Records Medical records reviewed: Yes I reviewed the patient's medical records Lab Data Lab results reviewed: Yes I reviewed the patient's lab results Imaging Data CT scan - head: Attestation: I have reviewed the pertinent imaging results. Discharge Plan Discharge Chief Complaint: Headache Clinical Impression: Headache Patient Disposition: Home, Self-Care Time of Disposition Decision: 15:25 Condition: Good Prescriptions / Home Meds: New ondansetron 4 mg tablet,disintegrating 4 mg PO Q6H PRN (Reason: nausea and vomiting) Qty: 12 0RF naproxen [Naprosyn] 125 mg/5 mL suspension 500 mg PO BID PRN (Reason: pain) Qty: 473 0RF prednisolone 15 mg/5 mL solution 60 mg PO BID 3 Days Qty: 120 0RF Print Language: Turkish Instructions: General Headache (ED) Referrals: ANSON LYNN [Primary Care Provider] - 1 week Hermila Franklin MD [Physician] - As soon as possible Discharge Date/Time: 09/05/24 15:42 Documented by User: Forrest Baer MD 09/05/24 20:37 HPI HPI - General Adult General Chief complaint: Headache Stated complaint: MIGRAINE Time Seen by Provider: 09/05/24 12:50 Related Data Previous Rx's ?Medication ?Instructions ?Recorded naproxen 125 mg/5 mL oral 500 mg (20 mL) PO BID PRN pain 09/05/24 suspension (Naprosyn) #473 mL ondansetron 4 mg disintegrating 4 mg PO Q6H PRN nausea and 09/05/24 tablet vomiting #12 tabs prednisolone 15 mg/5 mL oral 60 mg (20 mL) PO BID 3 days #120 mL 09/05/24 solution Allergies Allergy/AdvReac Type Severity Reaction Status Date / Time lamotrigine Allergy Unknown Unknown Verified 09/05/24 11:22 oxcarbazepine (From Allergy Unknown Unknown Verified 09/05/24 11:22 Trileptal) Opioid HPI Opioid Management Most Recent Opioid Data: Last Pain Scale 5 09/05/24 14:30 09/05/24 Last ED Pain Assessment 09/05/24 14:30 Last MAR Pain Assessment 09/05/24 13:27 PFSH PFSH Social History Little interest or pleasure in doing things: not at all Feeling down, depressed, or hopeless: not at all Exam Constitutional Vital Signs, click to edit/add: Last Vital Signs Temp 98.6 F 09/05/24 11:22 Pulse 88 09/05/24 15:39 Resp 18 09/05/24 15:39 BP 112/83 09/05/24 15:39 Pulse Ox 98 09/05/24 11:22 O2 Del Method Room Air 09/05/24 11:22 Course Vital Signs Vital signs: Vital Signs Temperature 98.6 F 09/05/24 11:22 Pulse Rate 94 H 09/05/24 11:22 Respiratory Rate 20 09/05/24 11:22 Blood Pressure 140/90 09/05/24 11:22 Pulse Oximetry 98 09/05/24 11:22 Oxygen Delivery Method Room Air 09/05/24 11:22 Temperature 98.6 F 09/05/24 11:22 Pulse Rate 88 09/05/24 15:39 Respiratory Rate 18 09/05/24 15:39 Blood Pressure 112/83 09/05/24 15:39 Pulse Oximetry 98 09/05/24 11:22 Oxygen Delivery Method Room Air 09/05/24 11:22 Medical Decision Making MDM Narrative Medical decision making narrative: This patient was treated with IV fluids, Reglan, Benadryl, Toradol. CT of the head and CT of the facial bones show opacification of the left mastoid air cells, however the patient has pain on the right side. I discussed this with Dr. Franklin ([id number]) for ENT who the patient is supposed to follow-up with, and he will see the patient for follow-up with no other recommendations. He states that the opacified mastoid cells are a common finding in any patient with an ear infection in the last year, no additional treatment recommended. Return to the ER if symptoms change or worsen. Headache is down to 5/10 and the patient is resting comfortably on reevaluation. Home medications given for headache control, follow-up with ENT as scheduled SUPERVISED APC VISIT, PHYSICIAN ATTESTATION: Based on the medical record the care appears appropriate. I, Dr Baer, have reviewed the above progress note and course of action in the ER; agree with the above. I have personally gone over history and physical, and discussed disposition and treatment plan with the PA. Discharge Plan Discharge Chief Complaint: Headache Clinical Impression: Headache Patient Disposition: Home, Self-Care Time of Disposition Decision: 15:25 Condition: Good Prescriptions / Home Meds: New ondansetron 4 mg tablet,disintegrating 4 mg PO Q6H PRN (Reason: nausea and vomiting) Qty: 12 0RF naproxen [Naprosyn] 125 mg/5 mL suspension 500 mg PO BID PRN (Reason: pain) Qty: 473 0RF prednisolone 15 mg/5 mL solution 60 mg PO BID 3 Days Qty: 120 0RF Print Language: Turkish Instructions: General Headache (ED) Referrals: ANSON LYNN [Primary Care Provider] - 1 week Hermila Franklin MD [Physician] - As soon as possible Discharge Date/Time: 09/05/24 15:42
[2024-09-05] MEDS: METOCLOPRAMIDE HCL 10 MG/2 ML VIAL IVP (13:27)
[2024-09-05] MEDS: 0.9 % SODIUM CHLORIDE 1,000 ML 1000 ML IV (13:27)
[2024-09-05] MEDS: KETOROLAC TROMETHAMINE 30 MG/ML VIAL IVP (13:27)
[2024-09-05] MEDS: DIPHENHYDRAMINE HCL 50 MG/ML VIAL 25 MG IVP (13:27)
[2024-09-05 15:39] VITALS: BP 112/83; PULSE 88
== END 2024-09-05 15:42 | disposition home or self-care (01) ==
PROVIDERS: Emergency Provider Emergency Medicine; PCP Family Medicine
DX: R51.9 Headache, unspecified (principal)
CPT/HCPCS: 70450; 70486; 96374; 96375; 99285; J1200; J1885; J2765

== ENCOUNTER 2024-11-29 16:00 | Outpatient (OUT) | payer OTHER, SELFPAY ==
--- OUTSIDE RECORDS SUMMARY | 2024-11-30 13:54 | XMS_ITS | Encounter Summary ---
[facility] Organization [facility] Address [id number] [address] [place] [address] Care Team Providers Care Rubber Factory Worker Name Role Phone Kalin Domínguez MD Primary Care Provider + [phone] Reason for Visit * Reason Onset Date Comments Patient wants to do a tele joaquín today Encounter Details Date Type Department Care Team (Late st Contact Info) Description 06/09/2023 Telephone [facility] - ENT [address] [place] [id number] Vu, Antonieta-Kathryn, DO [address] [place] [address] Patient wants to do a tele joaquín today Social History Tobacco Use Types Packs/Day Years Used Date Smoking Tobacco: Every Day Cigarettes Smokeless Tobacco: Never Alcohol Use Standard Drinks/Week Comments Not Currently 0 (1 standard drink = 0.6 oz pur e alcohol) PHQ-2 Answer Date Recorded Total Score 0 04/09/2021 Childcare Answer Date Recorded Childcare Unknown 12/13/2018 Employment Answer Date Recorded Employment Unknown 12/13/2018 Hunger Screening Answer Date Recorded Within the past 12 months we worried whether our food would run out before we got money to buy more. Never True 02/21/2023 Within the past 12 months th e food we bought just didn't last and we didn't have money to get more. Never True 02/21/2023 Purpose - Life Answer Date Recorded Purpose and direction in life Unknown Comments No Sex and Gender Information Value Date Recorded Sex Assigned at Not on file Legal Sex Female 5:21 PM EDT Gender Identity Not on file Sexual Orientation Not on file documented as of this encounter Miscellaneous Notes * Telephone Encounter - Fanta Sandra - 06/09/2023 10:34 AM EST Patient called 06/09/23 at 10:35am. Patient wants to do a tele joaquín today, she is scheduled at 1:15pm on 06/09/23 in . Patient does not have transportation. Please advise patient. * Telephone Encounter - Rylee Rodgers - 06/09/2023 10:34 AM EST I will run this by Dr. Randle after morning clinic. Thanks! * Telephone Encounter - Ashley Randle DO - 06/09/2023 10:34 AM EST That is fine. We can do video telehealth visit at that time. Please schedule accordingly. Thank you. * Telephone Encounter - Fanta Sandra - 06/09/2023 10:34 AM EST Patient is scheduled for the video visit today at 1:15pm. documented in this encounter Plan of Treatment Upcoming Encounters Date Type Department Care Team (Late st Contact Info) Description 12/12/2024 10:30 AM EDT Appointment [facility] - CT Imaging [address] [place] [phone] 12/27/2024 12:30 PM EDT Clinical Support [facility] [address] [place] [id number] 12/27/2024 12:45 PM EDT Office Visit [facility] [address] [place] [address] Antonieta Randle-[facility], [address] [place] [address] documented as of this encounter Visit Diagnoses Not on filedocumented in this encounter Additional Health Concerns Infection Onset Date Last Indicated Resolved Time COVID-19 Rule-Out 09/25/2023 09/25/2023 09/25/2023 1:06 PM EDT COVID-19 Positive 09/25/2023 09/25/2023 10/16/2023 11:12 PM EDT Respiratory Rule-Out 08/21/2024 08/21/2024 025 12:00 PM EST Influenza 08/21/2024 08/21/2024 08/28/2024 11:1 2 PM EST Assessment Noted Time PHQ-9 Depression Total Score: 0 04/09/20 21 3:24 PM EDT documented as of this encounter Care Teams Rubber Factory Worker Relationship Specialty Start Date End Date Kalin Domínguez MD [address] Provider retired 10/03/24 [place], [place] [id number] PCP - General Family Medicine 08/24/24 documented as of this encounter
--- OUTSIDE RECORDS SUMMARY | 2024-11-30 13:54 | XMS_ITS | Encounter Summary ---
Author Organization [facility] tem Address [id number] [address] [place] [address] Care Team Providers Care City Dispatch Supervisor Name Role Phone Kalin Domínguez MD Primary Care Provider + [phone] Encounter Details Date Type Department Care Team ([facility] Contact Info) Description 02/09/2024 Orders Only [facility] Family Medicine [address] [place] [address] Tanesha Guzman LPN Tongue irritation Social History Tobacco Use Types Packs/Day Years Used Date Smoking Tobacco: Former Cigarettes Smokeless Tobacco: Never Alcohol Use Standard Drinks/Week Comments Not Currently 0 (1 standard drink = 0.6 oz pur e alcohol) PHQ-2 Answer Date Recorded Total Score 0 02/08/2024 Childcare Answer Date Recorded Childcare Unknown 12/13/2018 Employment Answer Date Recorded Employment Unknown 12/13/2018 Hunger Screening Answer Date Recorded Within the past 12 months we worried whether our food would run out before we got money to buy more. Never True 02/08/2024 Within the past 12 months th e food we bought just didn't last and we didn't have money to get more. Never True 02/08/2024 Purpose - Life Answer Date Recorded Purpose and direction in life Unknown Comments No Sex and Gender Information Value Date Recorded Sex Assigned at Not on file Legal Sex Female 5:21 PM EDT Gender Identity Not on file Sexual Orientation Not on file documented as of this encounter Plan of Treatment Upcoming Encounters Date Type Department Care Team ([facility] Contact Info) Description 12/12/2024 10:30 AM EDT Appointment [facility] - CT Imaging [address] [place] [address] 12/27/2024 12:30 PM EDT Clinical Support [facility] [address] [place] [address] 12/27/2024 12:45 PM EDT Office Visit [facility] [address] [place] [address] Antonieta Randle-[facility], DO [address] [place] [address] documented as of this encounter Procedures Procedure Name Priority Date/Time Associated Diagnosis Comments AMB REFERRAL TO ENT Routine 02/07/2024 Tongue irritation documented in this encounter Results * Ambulatory referral to ENT (02/07/2024) us Kalin Domínguez MD OUTPATIENT REFERRAL ORDERABL ES Final Result MANUALLY TRANSCRIBED RESULTS documented in this encounter Visit Diagnoses Diagnosis Tongue irritation documented in this encounter Additional Health Concerns Infection Onset Date Last Indicated Resolved Time Respiratory Rule-Out 08/21/2024 08/21/2024 025 12:00 PM EST Influenza 08/21/2024 08/21/2024 08/28/2024 11:1 2 PM EST Assessment Noted Time PHQ-9 Depression Total Score: 0 02/08/20 7:00 AM EDT A Body Mass Index follow-up plan has been documented for the patient 08/27/2023 10:45 AM EST documented as of this encounter Care Teams City Dispatch Supervisor Relationship Specialty Start Date End Date Kalin Domínguez MD [address] Provider retired 10/03/24 [place], [place] [id number] PCP - General Family Medicine 08/24/24 documented as of this encounter
--- OUTSIDE RECORDS SUMMARY | 2024-11-30 13:54 | XMS_ITS | Clinical Summary ---
Author Organization [employer] tem Address [id number] [address] [place] [address] Care Team Providers Care Solid Waste Facility Operator Name Role Phone Kalin Domínguez MD Primary Care Provider + [phone] Allergies Active Allergy Reactions Criticality Noted Date Comments Amitriptyline 05/10/2024 Fatigue, mood disturbance Lamotrigine 04/09/2021 Oxcarbazepine 01/31/2021 Medications busPIRone (BUSPAR) 10 mg tablet Take 1 tablet (10 mg total) by mouth in the morning and 1 tablet (10 mg total) before bedtime. 09/06/19 24 Active VOQUEZNA 20 mg tabletIndications: Gastroesophageal reflux disease without esophagitis Take 20 mg by mouth in the morning. 01/26/20 24 Active IBUPROFEN ORAL Take by mouth. Active naproxen (NAPROSYN) 500 mg tablet Take 1 tablet (500 mg total) by mouth in the morning and 1 tablet (500 mg total) in the evening. Take with meals. 60 tablet 2 02/08/20 24 Active valACYclovir (VALTREX) 1000 mg tablet Take 1 tablet (1,000 mg total) by mouth in the morning and 1 tablet (1,000 mg total) before bedtime. 15 tablet 3 04/10/20 24 Active cholecalciferol, vitamin D3, 62.5 mcg (2,500 unit) tablet,chewable 2 chewables daily 60 tablet 11 06/06/20 24 Active cyanocobalamin (vitamin B-12) 1000 MCG tablet Take 1 tablet (1,000 mcg total) by mouth in the morning. Active albuterol (PROVENTIL HFA;VENTOLIN HFA) 90 mcg/actuation inhaler Inhale 2 puffs every 6 (six) hours as needed for wheezing. Active benzonatate (TESSALON PERLES) 100 mg capsule Take 1 capsule (100 mg total) by mouth every 8 (eight) hours. 21 capsule 08/24/19 25 Active Additional Information Patient not taking.Reported on 11/15/2024 ondansetron ODT (ZOFRAN ODT) 4 mg disintegrating tablet Dissolve 1 tablet (4 mg total) on tongue every 8 (eight) hours as needed for nausea for up to 10 doses. 10 tablet 08/24/19 25 Active levothyroxine (SYNTHROID, LEVOTHROID) 25 MCG tablet Take 1 tablet (25 mcg total) by mouth in the morning. 07/19/19 25 025 Active Active Problems No known active problems Encounters Date Type Department Care Team Description 11/15/2024 12:45 PM EDT Office Visit [facility] [address] [facility] [address] [address] [address] [place] [address] Antonieta Randle-Kathryn, Chronic mastoiditis of both sides (Primary Dx); ETD (Eustachian tube dysfunction), bilateral 11/15/2024 11:30 AM EDT Clinical Support [facility] [address] [place] [address] Sensation of fullness in ear, bilateral (Primary Dx); Dizziness and giddiness; Other specified disorders of eustachian tube, bilateral 11/15/2024 Travel 09/12/2024 Orders Only [facility] [place] [address] CMA Mastoiditis, bilateral 09/07/2024 Telephone [facility] [address] [facility] [place] [address] Shiloh Cullen CMA from Last 3 Months Immunizations Immunization Administration Dates Next Due H1N1 Nasal 07/15/2009 Influenza, Im Trivalent Preservative 06/02/2010 Tdap 07/26/2019,07/05/2012 Family History Medical History Relation Name Comments Stroke Brother Cancer Father Liver cancer Father Lung cancer Maternal Grandfather Diabetes Maternal Grandmother Kidney disease Maternal Grandmother Diabetes Mother Kidney disease Mother Stroke Mother Diabetes Paternal Grandfather Relation Name Status Comments Brother Father Alive Maternal Grandfather Maternal Grandmother Mother Alive Paternal Grandfather Social History Tobacco Use Types Packs/Day Years [...] got money to buy more. Never True 08/24/2024 Within the past 12 months th e food we bought just didn't last and we didn't have money to get more. Never True 08/24/2024 Purpose - Life Answer Date Recorded Purpose and direction in life Unknown Comments No Sex and Gender Information Value Date Recorded Sex Assigned at Not on file Legal Sex Female 5:21 PM EDT Gender Identity Not on file Sexual Orientation Not on file Last Filed Vital Signs Vital Sign Reading Time Taken Comments Blood Pressure 127/95 08/24/2024 10:28 AM EST Pulse 63 08/24/2024 10:25 AM EST Temperature 36.8 C (98.2 F) 11/15/2024 12:39 PM EDT Respiratory Rate 16 08/24/2024 10:25 AM EST Oxygen Saturation 97% 08/24/2024 10:25 AM EST Inhaled Oxygen Concentration - - Weight 72.6 kg (160 lb) 11/15/2024 12:39 PM EDT Height 157.5 cm (5' 2 ) 11/15/2024 12:39 PM EDT Body Mass Index 29.26 11/15/2024 12:39 PM EDT Plan of Treatment Upcoming Encounters Date Type Department Care Team (Late st Contact Info) Description 12/12/2024 10:30 AM EDT Appointment [place] - [facility] Imaging [address] [place] [address] 12/27/2024 12:30 PM EDT Clinical Support [facility] [address] [facility] [address] [place] [address] 12/27/2024 12:45 PM EDT Office Visit [facility] [address] [place] [phone] Antonieta Randle-[facility], [address] [facility], [facility] [address] [place] [address] Health Maintenance Due Date Last Done Comments Adult BMI Follow Up Plan 08/27/2024 08/27/2023 Depression Screening 02/07/2025 02/08/2024 Influenza Vaccine 03/05/2025 06/02/2010, 07/15/2009 Adult BMI Screening 11/15/2025 11/15/2024 Tobacco Screening 11/15/2025 11/15/2024 Pap Smear 01/19/2026 01/19/2023, 01/19/2023 Colonoscopy 07/09/2028 07/09/2023, 07/09/2023 DTaP,Tdap and Td Vaccines (3 - Td or Tdap) 07/26/2029 07/26/2019, 07/05/2012 Medical Devices Not on file Procedures Procedure Name Priority Date/Time Associated Diagnosis Comments AMB REFERRAL TO ENT Routine 09/12/2024 3 :15 PM EDT Mastoiditis, bilateral PROVATION COLONOSCOPY Routine 07/09/2023 7:31 AM EST HIGH RISK HPV W/KATHY Routine 01/19/2023 4:34 AM EDT Encounter for screening for human papillomavirus (HPV) Encounter for screening for malignant neoplasm of cervix from Last 3 Months or Most Recently Relevant to Health Maintenance Results * [facility] [place], [place] (09/12/2024 3:15 PM EDT) us Kalin Domínguez MD OUTPATIENT REFERRAL ORDERABL ES Final Result MANUALLY TRANSCRIBED RESULTS * Colonoscopy Report (07/09/2023 7:31 AM EST) Narrative SYSTEMGENERATED, DOCUMENTATION - 07/09/2023 7:31 AM EST This order has been auto-finalized for image and report archival in PACs. *For full report details, please reach out to your physician. This image is visible to you in MyChart.* us Liv Roberto MD IMG OR IMG ORDERABLES Coty morgan Result * High risk HPV w/kathy (01/19/2023 4:34 AM EDT) Hpv specimen type ThinPrep 01/20/2023 4:34 AM EDT [facility] Hpv 16 Negative Negative^N egative 01/21/2023 6:06 AM EDT [facility] Hpv 18 Negative Negative^N egative 01/21/2023 6:06 AM EDT [facility] Other high risk hpv Negative Negative^N egative 01/21/2023 6:06 AM EDT [facility] Comment: HPV types 31,33,35,39,45,52,56,58,59,66 and 68 DNA were undetectable. THINP 01/19/2023 4:34 AM EDT 01/20/2023 4:35 AM EDT us Mary Mckeon HR COORDINATOR-EXPLOSIVES HANDLER LAB BLOOD ORDERABLES nal Result [facility] [address] [facility], [place] [address] [facility] [address] [facility] [place] [address] from Last 3 Months or Most Recently Relevant to Health Maintenance Insurance [employer] Care Teams Solid Waste Facility Operator Relationship Specialty Start Date End Date Kalin Domínguez MD [address]. Provider retired 10/03/24 [place] [address] PCP - General Family Medicine 08/24/24
--- OUTSIDE RECORDS SUMMARY | 2024-11-30 13:54 | XMS_ITS | Encounter Summary ---
Author Organization [employer] [facility] tem Address [id number] [address] [place] [address] Care Team Providers Care Quality Specialist Name Role Phone Kalin Domínguez MD Primary Care Provider + [phone] Encounter Details Date Type Department Care Team ([facility] st Contact Info) Description 05/14/[address] [address] [facility] [address] [place] [address] [facility] [address] [facility] [address] [place] [address] Social History Tobacco Use Types Packs/Day Years [...] encounter Miscellaneous Notes * Telephone Encounter - Anastacia Norman - 05/14/2023 10:29 AM EST Pre cert called. The need the latest office note signed so they can get the CT neck approved. Oleksandryou * Telephone Encounter - Arlette Olvera MA - 05/14/2023 10:[address] Randle please see below. Arlette Olvera MA * Telephone Encounter - Ashley Randle DO - 05/14/2023 10:29 AM EST signed documented in this encounter Plan of Treatment Upcoming Encounters Date Type Department Care Team (Late st Contact Info) Description 12/12/2024 10:30 AM EDT Appointment [facility] - CT Imaging [address] [place] [phone] 12/27/2024 12:30 PM EDT Clinical Support [facility] [address] [place] [phone] 12/27/2024 12:45 PM EDT Office Visit [facility] [address] [place] [address] Ashley Randle DO [address] [facility] [address] [place] [address] documented as of this encounter Visit Diagnoses [...] documented as of this encounter Care Teams Quality Specialist Relationship Specialty Start Date End Date Kalin Domínguez MD [address] Provider retired 10/03/24 [place] [address] PCP - General Family Medicine 08/24/24 documented as of this encounter
--- OUTSIDE RECORDS SUMMARY | 2024-11-30 13:54 | XMS_ITS | Encounter Summary ---
Author Organization [facility] [facility] tem Address [id number] [address] [place] [address] Care Team Providers Care Fisheries Enforcement Officer Name Role Phone Kalin Domínguez MD Primary Care Provider + [phone] Encounter Details Date Type Department Care Team ([facility] Contact Info) Description 09/12/2024 Orders Only [facility] [address] [place] [address], RAIL FILLER Mastoiditis, bilateral Social History Tobacco Use Types Packs/Day Years [...] Upcoming Encounters Date Type Department Care Team ([facility] Contact Info) Description 12/12/2024 10:30 AM EDT Appointment [facility] - CT Imaging [address] [place] [address] 12/27/2024 12:30 PM EDT Clinical Support [facility] [address] [facility] [address] [place] [address] 12/27/2024 12:45 PM EDT Office Visit [facility] [address] [facility] [address] [place] [address] Antonieta Randle-[facility], DO [address] [facility] [place] [address] [place] [address] documented as of this encounter Procedures Procedure Name Priority Date/Time Associated Diagnosis Comments AMB REFERRAL TO ENT Routine 09/12/2024 3:15 PM ED T Mastoiditis, bilateral documented in this encounter Results * [facility] - [place], [place] (09/12/2024 3:15 PM EDT) us Kalin Domínguez MD OUTPATIENT REFERRAL ORDERABL ES Final Result MANUALLY TRANSCRIBED RESULTS documented in this encounter Visit Diagnoses Diagnosis Mastoiditis, bilateral documented in this encounter Additional Health Concerns Assessment Noted Time PHQ-9 Depression Total Score: 0 02/08/20 24 7:00 AM EDT A Body Mass Index follow-up plan has been documented for the patient 08/27/2023 10:45 AM EST documented as of this encounter Care Teams Fisheries Enforcement Officer Relationship Specialty Start Date End Date Kalin Domínguez MD [address]. Provider retired 10/03/24 [place] [address] PCP - General Family Medicine 08/24/24 documented as of this encounter
--- OUTSIDE RECORDS SUMMARY | 2024-11-30 13:54 | XMS_ITS | Encounter Summary ---
Author Organization [employer] [facility] tem Address [id number] [address] [place] [address] Care Team Providers Care Data Input Clerk Name Role Phone Kalin Domínguez MD Primary Care Provider + [phone] Encounter Details Date Type Department Care Team ([facility] st Contact Info) Description 07/01/2023 Telephone [facility] [address] [place] [address] [facility], [address] [address] Social History Tobacco Use Types Packs/Day Years Used Date Smoking Tobacco: Every Day Cigarettes Smokeless Tobacco: Never Alcohol Use Standard Drinks/Week Comments Not Currently 0 (1 standard drink = 0.6 oz pur e alcohol) PHQ-2 Answer Date Recorded Total Score 0 06/21/2023 Childcare Answer Date Recorded Childcare Unknown 12/13/2018 Employment Answer Date Recorded Employment Unknown 12/13/2018 Hunger Screening Answer Date Recorded Within the past 12 months we worried whether our food would run out before we got money to buy more. Never True 06/21/2023 Within the past 12 months th e food we bought just didn't last and we didn't have money to get more. Never True 06/21/2023 Purpose - Life Answer Date Recorded Purpose and direction in life Unknown Comments No Sex and Gender Information Value Date Recorded Sex Assigned at Not on file Legal Sex Female 5:21 PM EDT Gender Identity Not on file Sexual Orientation Not on file documented as of this encounter Miscellaneous Notes * Telephone Encounter - Char Tyler - 07/01/2023 1:50 PM EST 07/01/23 @ 1350 lvm to call back to reschedule procedure. documented in this encounter Plan of Treatment Upcoming Encounters Date Type Department Care Team (Late st Contact Info) Description 12/12/2024 10:30 AM EDT Appointment [facility] - CT Imaging [address] [place] [address] 12/27/2024 12:30 PM EDT Clinical Support [facility] [address] [facility] [address] [place] [address] 12/27/2024 12:45 PM EDT Office Visit [facility] [address] [facility] [address] [place] [address] Antonieta Randle-[facility], [address] [facility] [address] [place] [address] documented as of this encounter Visit Diagnoses Not on filedocumented in this encounter Additional Health Concerns Infection Onset Date Last Indicated Resolved Time COVID-19 Rule-Out 09/25/2023 09/25/2023 09/25/2023 1:06 PM EDT COVID-19 Positive 09/25/2023 09/25/2023 10/16/2023 11:12 PM EDT Respiratory Rule-Out 08/21/2024 08/21/2024 025 12:00 PM EST Influenza 08/21/2024 08/21/2024 08/28/2024 11:1 2 PM EST Assessment Noted Time PHQ-9 Depression Total Score: 0 06/21/20 7:00 AM EST documented as of this encounter Care Teams Data Input Clerk Relationship Specialty Start Date End Date Kalin Domínguez MD [address]. Provider retired 10/03/24 [place] [address] PCP - General Family Medicine 08/24/24 documented as of this encounter
--- OUTSIDE RECORDS SUMMARY | 2024-11-30 13:54 | XMS_ITS | Encounter Summary ---
Author Organization [facility] Address [address] [place] [address] Care Team Providers Care Sales Support Manager Name Role Phone Kalin Domínguez MD Primary Care Provider [phone] Encounter Details Date Type Department Care Team (Late st Contact Info) Description 11/16/2024 Telephone [facility] [address] [address] Riri Acevedo NP [address] [place] [address] Social History Tobacco Use Types Packs/Day Years Used Date Smoking Tobacco: Former Cigarettes Q uit: 07/2023 Smokeless Tobacco: Never Comments:Smoked since 1997 Alcohol Use Standard Drinks/Week Comments Not Currently 0 (1 standard drink = 0.6 oz pur e alcohol) Comments Unknown Sex and Gender Information Value Date Recorded Sex Assigned at Not on file Legal Sex Female 8:44 AM EDT Gender Identity Not on file Sexual Orientation Not on file documented as of this encounter Miscellaneous Notes * Telephone Encounter - Amber Wood - 11/16/2024 12:42 PM EDT Called patient and LM to let her know that order was faxed to [facility] per request- advised to call them on Wednesday to schedule if she has not heard from them yet. * Telephone Encounter - Sarah Birmingham - 11/16/2024 10:51 AM EDT Patient was supposed to get PSG done at [facility] sleep clinic. She called them all week and finally got through to them today, after which she states they were very unprofessional only took her name and said that they would get back to her but did not say when. She said that she is now uncomfortable to go there and is wanting a PSG ref to go to [facility] Sleep lab in [place] instead. She would like a call back when it is faxed over. Thank you! documented in this encounter Plan of Treatment Upcoming Encounters Date Type Department Care Team (Late st Contact Info) Description 01/11/2025 3:00 PM EDT Office Visit [facility] [address] [facility] [address] [place] [address] Riri Acevedo NP [address] [place] [address] 01/17/2025 11:30 AM EDT Office Visit [facility] [address] [place] [address] Raffaele Aguero MD [address] [place] [address] documented as of this encounter Visit Diagnoses Not on filedocumented in this encounter Care Teams Sales Support Manager Relationship Specialty Start Date End Date Kalin Domínguez MD PCP - General Family Medicine 09/13/23 documented as of this encounter
--- OUTSIDE RECORDS SUMMARY | 2024-11-30 13:54 | XMS_ITS | Clinical Summary ---
Author Organization [facility] Address [address] [place] [address] Care Team Providers Care Dairy Bacteriologist Name Role Phone Kalin Domínguez MD Primary Care Provider [phone] Allergies Active Allergy Reactions Criticality Noted Date Comments Amitriptyline 05/10/2024 Fatigue, mood disturbance Lamotrigine Rash Low 10/20/2023 Oxcarbazepine Rash Low 10/20/2023 Medications busPIRone (Buspar) 10 MG tablet Take 10 mg by mouth in the morning and 10 mg before bedtime. Active acyclovir (Zovirax) 400 MG tablet Take 400 mg by mouth in the morning and 400 mg before bedtime. 4 Active albuterol HFA 90 mcg/act inhaler Inhale 1 puff as needed in the morning and 1 puff as needed at noon and 1 puff as needed in the evening for wheezing or shortness of breath. 4 Active ondansetron ODT (Zofran-ODT) 4 MG disintegrating tablet Take 4 mg by mouth every 8 (eight) hours if needed 4 Active Voquezna 20 MG tablet Take 20 mg by mouth in the morning. 4 Active ibuprofen 200 MG tablet Take 200 mg by mouth as needed in the morning and 200 mg as needed in the evening for mild pain, moderate pain or headaches. Active cholecalciferol (Vitamin D-3) 25 MCG (1000 UT) capsule Take 25 mcg by mouth Daily 4 Active ibuprofen 100 MG/5ML suspension Take 200 mg by mouth every 6 (six) hours if needed for headaches Active levothyroxine (Synthroid, Levoxyl) 25 MCG tabletIndications: Subclinical hypothyroidism (CMS/HCC) Take 1 tablet (25 mcg) by mouth in the morning. Take before meals. 90 tablet 1 5 025 Active fluticasone (Flonase) 50 MCG/ACT nasal sprayIndications:E TD (Eustachian tube dysfunction), bilateral Administer 2 sprays into each nostril Daily Shake gently. Before first use, prime pump. After use, clean tip and replace cap. 48 g 3 5 026 Active verapamil SR (Calan SR) 120 MG ER tabletIndications: Vestibular migraine (CMS/HCC) Take 1 tablet (120 mg) by mouth at bedtime Do not crush or chew. 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 Irritation of tongue 12/22/2023 Esophagitis 12/22/2023 GERD (gastroesophageal reflux disease) Hiatal hernia 12/22/2023 Cervicalgia 12/20/2023 Balance disorder 12/20/2023 Blood coagulation disorder 11/24/2017 Genital herpes simplex 11/24/2017 Mild intermittent asthma 11/24/2017 Resolved Problems Problem Noted Date Diagnosed Date Resolved Date Bacterial vaginosis 12/28/2017 12/22/19 24 Acute sinusitis 11/24/2017 12/22/2023 Asthma 11/24/2017 12/22/2023 Encounters Date Type Department Care Team Description 11/16/2024 Telephone [facility] [address] [address] Riri Acevedo NP 11/09/2024 1:20 PM EDT Office Visit [facility] [address] [address] Riri Acevedo NP Vertigo (Primary Dx); Vestibular migraine (CMS/HCC); Cognitive impairment; Daytime hypersomnolence; Pulsatile tinnitus of left ear 11/09/2024 Bamboo flowsheet [facility] [address] [place] [phone] Riri Acevedo NP 09/12/2024 8:30 AM EDT Office Visit [facility] [address] [place] [phone] Hermila Franklin MD Chronic mastoiditis of both sides (Primary Dx); ETD (Eustachian tube dysfunction), bilateral 09/12/2024 Bamboo flowsheet [facility] [address] [facility] [address] [place] [phone] Hermila Franklin MD 09/12/2024 Travel from Last 3 Months Immunizations Immunization Administration Dates Next Due Influenza, seasonal, injectable 06/02/2010 Novel [id number], nasal 07/15/2009 Tdap 07/26/2019,07/05/2012 Family History Medical History Relation Name Comments Stroke Brother Cancer Father Liver Cancer Maternal Grandfather Lung Diabetes Maternal Grandmother Heart disease Maternal Grandmother Hypertension Maternal Grandmother Stroke Maternal Grandmother Diabetes Mother Hypothyroidism Mother Stroke Mother Diabetes Paternal Grandfather Relation Name Status Comments Brother Father Alive Maternal Grandfather Maternal Grandmother Mother Alive Paternal Grandfather Social History Tobacco Use Types Packs/Day Years Used Date Smoking Tobacco: Former Cigarettes Q uit: 07/2023 Smokeless Tobacco: Never Tobacco Cessation:Counseling Given: Not Answered Comments:Smoked since 1997 Alcohol Use Standard Drinks/Week Comments Not Currently 0 (1 standard drink = 0.6 oz pur e alcohol) Comments Unknown Sex and Gender Information Value Date Recorded Sex Assigned at Not on file Legal Sex Female 8:44 AM EDT Gender Identity Not on file Sexual Orientation Not on file Last Filed Vital Signs Vital Sign Reading Time Taken Comments Blood Pressure 130/84 11/09/2024 1:16 PM EDT Pulse 75 11/09/2024 1:16 PM EDT Temperature - - Respiratory Rate 18 07/19/2024 11:12 AM EST Oxygen Saturation 98% 03/15/2024 11:04 AM EDT Inhaled Oxygen Concentration - - Weight 72.6 kg (160 lb) 11/09/2024 1:16 PM EDT Height 157.5 cm (5' 2 ) 11/09/2024 1:16 PM EDT Body Mass Index 29.26 11/09/2024 1:16 PM EDT Plan of Treatment Upcoming Encounters Date Type Department Care Team (Late st Contact Info) Description 01/11/2025 3:00 PM EDT Office Visit [facility] [address] [facility] [address] [place] [address] Riri Acevedo NP [address] [place] [address] 01/17/2025 11:30 AM EDT Office Visit [facility] [address] [place] [address] Raffaele Aguero MD [address] [place] [address] Insurance [employer] Care Teams Dairy Bacteriologist Relationship Specialty Start Date End Date Kalin Domínguez MD PCP - General Family Medicine 09/13/23
== END 2024-11-29 16:01 | disposition home or self-care (01) ==
LOC: SLEEP 11-30 13:51
PROVIDERS: PCP Nurse Practitioner Family; Visit Provider Nurse Practitioner Family
DX: G47.33 Obstructive sleep apnea (adult) (pediatric) (principal); R41.89 Other symptoms and signs involving cognitive functions and awareness; G47.19 Other hypersomnia
CPT/HCPCS: 95806